=== PATIENT | male | born 1950 | race Caucasian/White ===

== ENCOUNTER 2016-12-10 13:07 | Inpatient (IN) | payer OTHER ==
[~2016-12-10] VITALS: Ht 177.8 cm; Wt 102.2 kg
[~2016-12-10 13:07] MED LIST: ALBINS/ INH; ALBUAER19 INH; ASPI81TA57 PO; FURO40TA3 PO; LEVO1TAB35 PO; LORA-741 PO; MOME100A INH; OMEP20CA9 PO; POTA20TA13 PO; SIMV20TA5 PO; VLT500 PO
[2016-12-10 15:24] VITALS: BP 155/72; PULSE 80; TEMP 36.5; O2SAT 93
[2016-12-10 15:43] VITALS: O2SAT 96
[2016-12-10] MEDS ORDERED: ALUMINUM/MAGNESIUM/SIMETH (MAALOX MAX) 30 ML UDC PO PRN (15:45)
[2016-12-10] MEDS ORDERED: MAGNESIUM HYDROXIDE SUSP 30 ML UDC PO PRN (15:45)
[2016-12-10] MEDS ORDERED: ONDANSETRON INJ 2 MG/ML 2 ML VIAL IV PRN (15:45)
[2016-12-10] MEDS ORDERED: POLYETHYLENE (MIRALAX) 17 GM PACK PO PRN (15:45)
[2016-12-10] MEDS ORDERED: ACETAMINOPHEN 325 MG TAB PO PRN (15:45)
[2016-12-10] MEDS ORDERED: ALBUTEROL HFA 8 GM INHALER INH PRN (15:45)
[2016-12-10] MEDS: ALBUT/IPRATROP 3MG/0.5MG NEB 3 ML VIAL INH SCH ×2 (16:00→19:58)
--- NOTE | 2016-12-10 16:11 | History and Physical ---
History & Physical Date & Time of Service: Dec 10, 2016 at 15:50 Chief Complaint: Probable Pneumonia; Exacerbation Of Sarcoidosis Primary Care Physician: Helio Bailey M.D. History of Present Illness Source: patient, family Patient is a pleasant 66 y/o male, with PMHx of sarcodosis, anxiety, GERD, hyperlipidemia, herpes zoster, bilateral lower extremity edema, and chronic t wave abnormality on EKG, direct admit from Petros Heath PA-C office due to failed outpatient treatment of acute bronchitis. Per patient, he has been dealing with this issue for over a month now. Treated x1 with a z-pac, then multiple treatments with Levaquin. His latest treatment included Levaquin and a Prednisone sidney, started on 12/03. He has had minimal improvement in his symptoms. +productive cough- yellow/green mucus. +hemoptysis x1 episode on 12/10 in Petros's office. +SOB- patient was started on 2L O2 about 1 week ago, he is to wear O2 supplement all the time. Per , patient becomes very anxious when feeling SOB. Patient is having trouble sleeping due to cough. Patient denies any fever, chills, sweats, lightheadedness, dizziness, vision changes, CP, palpitations, wheezing, abdominal pain, nausea, vomiting, diarrhea, urinary symptoms, melena, numbness/tingling, weakness, muscle/joint pain, depression, active bleeding, or new skin discoloration/changes. Past Medical/Surgical History Medical Problems: 1. Sarcoidosis 2. Anxiety 3. GERD 4. Hyperlipidemia 5. Herpes zoster 6. Bilateral lower extremity edema 7. Chronic t-wave abnormality on EKG Family History FH: cancer Hypertension Social History Smoking Status: Never Smoker Smokeless Tobacco Use: No Alcohol Use: none Marital Status: Housing status: lives with family Immunizations History of Influenza Vaccine: Yes Influenza Vaccine Date: Aug 03, 2013 History of Tetanus Vaccine?: Yes Tetanus Immunization Date: Nov 29, 2006 History of Pneumococcal: Yes Pneumococcal Date: Feb 01, 2009 History of Hepatitis B Vaccine: Yes Allergies Coded Allergies: Tetracycline (Verified Allergy, Unknown, *, 11/18/09) Home Medications Scheduled Aspirin (Aspirin Ec Lo-Dose), 81 MG PO DAILY Furosemide (Lasix), 40 MG PO DAILY Levofloxacin (Levaquin), 750 MG PO DAILY Mometasone Furoate-Formoterol (Dulera 100/5 Mcg), 2 PUFFS INH BID Omeprazole (Prilosec), 20 MG PO BID Potassium Chloride Microencaps (Potassium Chloride Er), 20 MEQ PO DAILY Simvastatin (Zocor), 20 MG PO QPM Valacyclovir Hcl (Valtrex), 1,000 MG PO TID Scheduled PRN Albuterol Inhaler (Ventolin Inhaler), 2 PUFFS INH BID PRN for PRN Albuterol Sulf (Proventil 0.083% 2.5MG/3ML), 2.5 MG INH QID PRN for SOB/Wheezing Lorazepam (Ativan), 0.5 MG PO Q6H PRN for Anxiety Physical Exam Vital Signs Date Time Temp Pulse Resp B/P Pulse Ox O2 Delivery O2 Flow Rate FiO2 12/10/16 15:24 36.5 80 20 155/72 93 Room Air General Appearance: no apparent distress Head: normocephalic, atraumatic Eyes: normal inspection, PERRL ENT: hearing grossly normal Neck: supple Respiratory/Chest: no respiratory distress, no accessory muscle use, + rhonchi , + wheezing Cardiovascular: regular rate, rhythm Abdomen/GI: normal bowel sounds, non tender, soft Back: normal inspection Extremities/Musculoskelatal: no calf tenderness, no pedal edema, + swelling ( Trace pitting edema of right lower extremity ) Neurologic/Psych: alert, normal mood/affect, oriented x 3 Skin: normal color, warm/dry, + pertinent finding (shingles noted on left buttock- scabbed over, no drainage noted ) Impression Assessment and Plan 66 y/o male, with PMHx of sarcodosis, anxiety, GERD, hyperlipidemia, herpes zoster, bilateral lower extremity edema, and chronic t wave abnormality on EKG, direct admit from Petros Heath PA-C office due to failed outpatient treatment of acute bronchitis. Failed outpt treatment of acute bronchitis: - Admit med/surg - Chest x-ray - Sputum culture--> hold on antibiotic treatment at this time pending results - IV Solu-Medrol 80 mg q8 hr - O2 supplement--> wears 2L O2 all the time at home - DuoNeb QID and q2 hrs PRN - CBC and BMP - Consult pulmonary, appreciate recommendations--> ?bronchoscopy Sarcoidosis: - Continue inhalers - Patient follows with Petros Heath PA-C Bilateral lower extremity edema: Continue Lasix 40 mg PO daily and Klor-Con 20 mEq daily Anxiety: Continue Ativan 0.5 mg PO, 1-2 tablets q6 hr GERD: Protonix 40 mg PO QAM, inter-formulary change for Omeprazole Hyperlipidemia: Continue Simvastatin 20 mg PO QPM and ASA 81 mg PO daily Shingles (right buttock): Continue Valtrex 1000 mg PO TID (started treatment on 12/03) DVT prophylaxis: Heparin 5000 units SQ q12 hrs, SARAH and SCDs Code Status: LEVEL I, FULL Dispo: From home, lives with [facility] Med/Surg Resuscitation Status FULL RESUSCITATION VTE Prophylaxis VTE Risk Assessment Done? Y/N: Yes Risk Level: Low Given or contraindicated: Unfractionated heparin SQ, T.E.D. Stockings, SCD's
[2016-12-10] MEDS ORDERED: FUROSEMIDE 40 MG TAB PO ONE (16:30)
--- NOTE | 2016-12-10 16:47 | DIAGNOSTIC IMAGING REPORT ---
CHEST ONE VIEW PORTABLE CLINICAL HISTORY: Pneumonia. Sarcoidosis. COMPARISON STUDY: Chest CT July 02, 2011 and chest radiograph November 29, 2013. FINDINGS: Right hemithorax volume loss is unchanged. There is no pneumothorax or pleural effusion. There is no evidence for pulmonary edema. Mediastinal widening is unchanged. Cardiomediastinal silhouette is stable. IMPRESSION: 1. No acute findings. No change in appearance of the chest. 2. Stable right hemithorax volume loss with asymmetric right upper lung interstitial thickening. The findings represent interstitial lung disease and may reflect sarcoidosis, better depicted on prior chest CT. Electronically signed by: Shakeel Keen M.D. 12/10/2016 4:46 PM Dictated Date/Time: 12/10/2016 4:43 PM
[2016-12-10 17:34] LABS: HEMATOCRIT 39.9 % (42-52); MEAN CELL VOLUME 87.7 fL (80-100); MEAN CORPUSCULAR HEMOGLOBIN 29.5 pg (25-34); MEAN CORPUSCULAR HGB CONC 33.6 g/dl (32-36); MEAN PLATELET VOLUME 9.3 fL (7.4-10.4); PLATELET COUNT 114 K/uL (130-400); RED BLOOD COUNT 4.55 M/uL (4.7-6.1); WHITE BLOOD COUNT 7.51 K/uL (4.8-10.8)
[2016-12-10 17:42] VITALS: PULSE 88; O2SAT 95
[2016-12-10] MEDS: LORAZEPAM 0.5 MG TAB PO PRN (18:19)
[2016-12-10 18:39] LABS: INR 0.9 (0.9-1.1)
[2016-12-10] MEDS: METHYLPREDNISOLONE IV 80 MG in SYRINGE 0 ML IV SCH (18:39)
[2016-12-10 19:15] VITALS: PULSE 71; O2SAT 97
[2016-12-10] MEDS: ASPIRIN 81 MG ECTAB PO SCH (20:29)
[2016-12-10] MEDS: SIMVASTATIN 20 MG TAB PO SCH (20:29)
[2016-12-10] MEDS: HEPARIN SOD 5000 UNIT/0.5 ML CARP SQ SCH (20:43)
[2016-12-10 23:57] VITALS: BP 153/84; PULSE 83; TEMP 36.7; O2SAT 96
[2016-12-11] MEDS: LORAZEPAM 0.5 MG TAB PO PRN (01:53)
[2016-12-11] MEDS: METHYLPREDNISOLONE IV 80 MG in SYRINGE 0 ML IV SCH ×3 (01:54→18:09)
[2016-12-11] MEDS ORDERED: BENZONATATE 100MG CAP PO STA (02:41)
[2016-12-11] MEDS ORDERED: BENZONATATE 100MG CAP PO PRN (02:45)
[2016-12-11] MEDS: DEXTROMETHORPHAN POLYMR COMPLX 30 MG/5 ML UDP PO PRN ×2 (03:09→14:05)
[2016-12-11 07:09] VITALS: PULSE 68; O2SAT 98
[2016-12-11] MEDS: ALBUT/IPRATROP 3MG/0.5MG NEB 3 ML VIAL INH SCH ×4 (07:09→19:50)
[2016-12-11 07:29] LABS: HEMATOCRIT 40.7 % (42-52); MEAN CORPUSCULAR HEMOGLOBIN 28.8 pg (25-34); MEAN CORPUSCULAR HGB CONC 33.9 g/dl (32-36); MEAN PLATELET VOLUME 8.5 fL (7.4-10.4); PLATELET COUNT 109 K/uL (130-400); RED BLOOD COUNT 4.79 M/uL (4.7-6.1); WHITE BLOOD COUNT 7.94 K/uL (4.8-10.8)
[2016-12-11] MEDS: PANTOprazole SOD 40 MG TAB PO SCH (07:46)
[2016-12-11] MEDS: POTASSIUM CHLORIDE 20 MEQ TABCR PO SCH (07:46)
[2016-12-11] MEDS: FUROSEMIDE 40 MG TAB PO SCH (07:46)
[2016-12-11 07:49] VITALS: BP_SYST 159; BP_SYST 168; BP_DIAS 80; BP_DIAS 91; PULSE 69; TEMP 36.9; O2SAT 95
[2016-12-11] MEDS: HEPARIN SOD 5000 UNIT/0.5 ML CARP SQ SCH ×2 (07:51→20:17)
[2016-12-11 08:08] LABS: BLOOD UREA NITROGEN 22 mg/dl (7-18); GLUCOSE 118 mg/dl (70-99)
[2016-12-11 08:09] LABS: BUN/CREATININE RATIO 22.2 (10-20); CALCIUM 8.6 mg/dl (8.5-10.1); CARBON DIOXIDE 30 mmol/L (21-32); CHLORIDE 99 mmol/L (98-107); POTASSIUM 4.3 mmol/L (3.5-5.1); SODIUM 138 mmol/L (136-145)
[2016-12-11 11:40] VITALS: PULSE 68; O2SAT 98
--- NOTE | 2016-12-11 14:13 | Hospitalist Progress Note ---
Hospitalist Progress Note Date of Service Dec 11, 2016. (Bharti Baldwin ., [facility]) Subjective Pt evaluation today including: conversation w/ patient Voiding: no voiding problems, no incontinence Patient does not feel much improvement since admission. +cough- nonproductive. + SOB. +Insomnia due to cough and steroids. Patient denies any fever, chills, sweats, lightheadedness, dizziness, vision changes, CP, palpitations, edema, wheezing, abdominal pain, nausea, vomiting, diarrhea, urinary symptoms, melena, numbness/tingling, weakness, muscle/joint pain, anxiety/depression, active bleeding, or new skin discoloration/changes. (Bharti Baldwin ., [facility]) Medications Current Inpatient Medications Medications (Trade) Dose Ordered Sig/Nahum Route Start Time Stop Time Status Last Admin Dose Admin Acetaminophen (Tylenol Tab) 650 mg Q4H PRN PO 12/10/16 15:45 01/09/17 15:44 Al Hydrox/Mg Hydrox/Simethicone (Maalox Max Susp) 15 ml Q4H PRN PO 12/10/16 15:45 01/09/17 15:44 Magnesium Hydroxide (Milk Of Magnesia Susp) 30 ml Q6H PRN PO 12/10/16 15:45 01/09/17 15:44 Polyethylene (Miralax Powder Packet) 17 gm DAILY PRN PO 12/10/16 15:45 01/09/17 15:44 Ondansetron HCl (Zofran Inj) 4 mg Q6H PRN IV 12/10/16 15:45 01/09/17 15:44 Heparin Sodium (Porcine) (Heparin Sq 5000 Unit/0.5ml) 5,000 unit Q12 SQ 12/10/16 21:00 01/09/17 20:59 12/11/16 07:51 5,000 UNIT Albuterol (Ventolin Hfa Inhaler) 2 puffs BID PRN INH 12/10/16 15:45 01/09/17 15:44 Aspirin (Ecotrin Tab) 81 mg HS PO 12/10/16 21:00 01/09/17 20:59 12/10/16 20:29 81 MG Furosemide (Lasix Tab) 40 mg DAILY PO 12/11/16 09:00 01/10/17 08:59 12/11/16 07:46 40 MG Lorazepam (Ativan Tab) 0.5 mg Q6H PRN PO 12/10/16 15:45 01/09/17 15:44 12/11/16 01:53 0.5 MG Potassium Chloride (Klor-Con Tab) 20 meq DAILY PO 12/11/16 09:00 01/10/17 08:59 12/11/16 07:46 20 MEQ Simvastatin (Zocor Tab) 20 mg QPM PO 12/10/16 21:00 01/09/17 20:59 12/10/16 20:29 20 MG Valacyclovir HCl (Valtrex Tab) 1,000 mg TID PO 12/10/16 21:00 12/20/16 20:59 12/11/16 14:05 1,000 MG Miscellaneous Information (Order Awaiting Action) 1 ea QS N/A 12/11/16 00:00 01/10/17 00:00 Albuterol/ Ipratropium (Duoneb) 3 ml QIDR INH 12/10/16 16:00 01/09/17 15:59 12/11/16 15:52 3 ML Pantoprazole Sodium 40 mg 40 mg QAM PO 12/11/16 09:00 01/10/17 08:59 12/11/16 07:46 40 MG Methylprednisolone Sodium Succinate/ Syringe (Solu-Medrol IV/ Syringe) 1.28 ml @ 1.5 mls/min Q8H IV 12/10/16 16:00 01/09/17 15:59 12/11/16 09:32 1.5 MLS/MIN Benzonatate (Tessalon Perles Cap) 100 mg TID PRN PO 12/11/16 02:45 01/10/17 02:44 Dextromethorphan Polymer Complex (Delsym Susp) 30 mg Q6H PRN PO 12/11/16 02:45 01/10/17 02:44 12/11/16 14:05 30 MG (Bharti Baldwin, SHAMIKA) Objective Vital Signs Date Time Temp Pulse Resp B/P Pulse Ox O2 Delivery O2 Flow Rate FiO2 12/11/16 11:40 68 12 98 Nasal Cannula 3.0 12/11/16 08:00 Nasal Cannula 2.0 12/11/16 07:49 36.9 69 20 159/91 95 Nasal Cannula 3.0 168/80 12/11/16 07:09 68 14 98 Nasal Cannula 3.0 12/11/16 00:10 Nasal Cannula 2.0 12/10/16 23:57 36.7 83 18 153/84 96 Nasal Cannula 3.0 12/10/16 20:10 Nasal Cannula 2.0 12/10/16 19:15 71 20 97 Nasal Cannula 3.0 12/10/16 17:42 88 20 95 Nasal Cannula 3.0 12/10/16 15:43 96 Nasal Cannula 2.0 12/10/16 15:24 36.5 80 20 155/72 93 Room Air (Bharti Baldwin, PA-C) Physical Exam General Appearance: no apparent distress Eyes: normal inspection, PERRL ENT: hearing grossly normal Neck: supple Respiratory/Chest: no respiratory distress, no accessory muscle use, + crackles (bilateral lung bases ), + rhonchi (diffuse), + wheezing (diffuse, expiratory ) Cardiovascular: regular rate, rhythm Abdomen: normal bowel sounds, non tender, soft Extremities: no calf tenderness, + swelling (+1 pitting edema of bilteral extremities ) Neurologic/Psychiatric: alert, normal mood/affect, oriented x 3 Skin: normal color, warm/dry, no rash (Bharti Baldwin ., PA-C) Laboratory Results Last 24 Hours Test 12/10/16 17:15 12/11/16 07:10 12/11/16 07:20 White Blood Count 7.51 K/uL 7.94 K/uL Red Blood Count 4.55 M/uL 4.79 M/uL Hemoglobin 13.4 g/dL 13.8 g/dL Hematocrit 39.9 % 40.7 % Mean Corpuscular Volume 87.7 fL 85.0 fL Mean Corpuscular Hemoglobin 29.5 pg 28.8 pg Mean Corpuscular Hemoglobin Concent 33.6 g/dl 33.9 g/dl RDW Standard Deviation 46.4 fL 44.4 fL RDW Coefficient of Variation 14.6 % 14.3 % Platelet Count 114 K/uL 109 K/uL Mean Platelet Volume 9.3 fL 8.5 fL Prothrombin Time 10.0 SECONDS Prothromb Time International Ratio 0.9 Thyroid Stimulating Hormone (TSH) 0.836 uIu/ml Sodium Level 138 mmol/L Potassium Level 4.3 mmol/L Chloride Level 99 mmol/L Carbon Dioxide Level 30 mmol/L Anion Gap 9.0 mmol/L Blood Urea Nitrogen 22 mg/dl Creatinine 1.00 mg/dl Estimated GFR () 89.9 Estimated GFR (Non- 77.5 BUN/Creatinine Ratio 22.2 Random Glucose 118 mg/dl Calcium Level 8.6 mg/dl Pro-B-Type Natriuretic Peptide 178 pg/ml Bedside Glucose 116 mg/dl (Bharti Baldwin PA-C) Assessment and Plan 66 y/o male, with PMHx of sarcoidosis, anxiety, GERD, hyperlipidemia, herpes zoster, bilateral lower extremity edema, and chronic t-wave abnormality on EKG, direct admit from [facility] Heath PA-C office due to failed outpatient treatment of acute bronchitis. Failed outpt treatment of acute bronchitis: - Admit med/surg - Sputum culture--> hold on antibiotic treatment at this time pending results - IV Solu-Medrol 80 mg q8 hr - O2 supplement--> wears 2L O2 all the time at home - DuoNeb QID and q2 hrs PRN - Delsym for cough - CBC and BMP - Consult pulmonary, appreciate recommendations--> bronchoscopy (per patient, possibly on 12/12) Sarcoidosis: - Continue inhalers - Patient follows with Petros Heath PA-C Bilateral lower extremity edema: - Continue Lasix 40 mg PO daily and Klor-Con 20 mEq daily - ECHO pending Anxiety: Continue Ativan 0.5 mg PO, 1-2 tablets q6 hr GERD: Protonix 40 mg PO QAM, inter-formulary change for Omeprazole Hyperlipidemia: Continue Simvastatin 20 mg PO QPM and ASA 81 mg PO daily Shingles (right buttock): Continue Valtrex 1000 mg PO TID (started treatment on 12/03) DVT prophylaxis: Heparin 5000 units SQ q12 hrs, SARAH and SCDs Code Status: LEVEL I, FULL Dispo: From home, lives with (Bharti Baldwin PA-C) Reviewed: Pt Seen/Exam by , BALJEET Notes, Labs, RAD (Christy Castellon MD) 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 Discussed with LINDA Baldwin and agree with findings and plan as documented in the note. Any exceptions or clarifications are listed here: Pt still with SOB, dry cough, not much sputum. Hospitalized 2 weeks ago at outside hospital and treated with steroids and IV Levaquin with some improvement , now worsening again. Sarcoidosis treated with chronic prednisone (and previously on MTX) for 20 years. Vitals reviewed NAD, AAOx3 RRR no mgr Pulm with diffuse rhonchi and insp/exp wheezes Abd soft NT ND +BS Ext 1+ pitting edema legs to knees bilat Skin no rashes 66 yo male with pulmonary sarcoidosis on chronic prednisone and h/o ?wedge resection vs lung biopsies, here with exacerbation of sarcoidosis, bronchitis, or atypical infection. -continue steroids appreciate Pulm consult -possible bronch tomorrow -supplemental O2 -check flu swab follow sputum cxs -check ECHO-last one 2013 with diastolic dysfunction Documented By: Christy Castellon (Christy Castellon MD)
[2016-12-11 15:01] VITALS: BP 124/73; PULSE 72; TEMP 36.5; O2SAT 96
[2016-12-11 15:52] VITALS: PULSE 75; O2SAT 97
[2016-12-11 19:50] VITALS: PULSE 77; O2SAT 97
[2016-12-11] MEDS: ACETYLCYSTEINE 20% INHAL SOLN ***DISPENSED BY RESP. INH SCH (19:50)
[2016-12-11] MEDS: SIMVASTATIN 20 MG TAB PO SCH (20:14)
[2016-12-11] MEDS: ASPIRIN 81 MG ECTAB PO SCH (20:14)
[2016-12-11] MEDS ORDERED: LORAZEPAM 1 MG TAB PO PRN (21:45)
[2016-12-12] VITALS (7 sets, daily range): BP systolic 118–146; BP diastolic 66–80; PULSE 70–102; TEMP 36.3–36.6; O2SAT 90–97
[2016-12-12] MEDS: METHYLPREDNISOLONE IV 80 MG in SYRINGE 0 ML IV SCH ×2 (03:50→10:20)
[2016-12-12] MEDS: ALBUT/IPRATROP 3MG/0.5MG NEB 3 ML VIAL INH SCH ×4 (07:54→20:11)
[2016-12-12] MEDS: ACETYLCYSTEINE 20% INHAL SOLN ***DISPENSED BY RESP. INH SCH ×2 (07:54→20:11)
[2016-12-12 08:37] LABS: INFLUENZA A PCR Neg for Influ A (NEG); INFLUENZA B PCR Neg for Influ B (NEG)
[2016-12-12] MEDS: PANTOprazole SOD 40 MG TAB PO SCH (10:20)
[2016-12-12] MEDS: FUROSEMIDE 40 MG TAB PO SCH (10:20)
[2016-12-12] MEDS: POTASSIUM CHLORIDE 20 MEQ TABCR PO SCH (10:21)
[2016-12-12] MEDS: HEPARIN SOD 5000 UNIT/0.5 ML CARP SQ SCH ×2 (10:24→21:22)
[2016-12-12 12:08] LABS: MEAN CELL VOLUME 85.9 fL (80-100); MEAN CORPUSCULAR HEMOGLOBIN 28.8 pg (25-34); MEAN CORPUSCULAR HGB CONC 33.6 g/dl (32-36); MEAN PLATELET VOLUME 9.1 fL (7.4-10.4); PLATELET COUNT 131 K/uL (130-400); RED BLOOD COUNT 4.89 M/uL (4.7-6.1); WHITE BLOOD COUNT 10.34 K/uL (4.8-10.8)
[2016-12-12 13:01] LABS: BLOOD UREA NITROGEN 29 mg/dl (7-18); BUN/CREATININE RATIO 24.2 (10-20); CALCIUM 8.9 mg/dl (8.5-10.1); CARBON DIOXIDE 27 mmol/L (21-32); CHLORIDE 100 mmol/L (98-107); GLUCOSE 182 mg/dl (70-99); POTASSIUM 4.1 mmol/L (3.5-5.1); SODIUM 139 mmol/L (136-145)
--- NOTE | 2016-12-12 13:17 | Hospitalist Progress Note ---
Hospitalist Progress Note Date of Service Dec 12, 2016. (Bharti Baldwin ., PAEmreC) Subjective Pt evaluation today including: conversation w/ patient, physical exam, chart review, lab review, review of inpatient medication list Voiding: no voiding problems, no incontinence Patient states he is feeling improved today. +productive cough, but improving. + SOB- improving. Slept well. Eating and drinking OK. Patient denies any fever, chills, sweats, lightheadedness, dizziness, vision changes, CP, palpitations, edema, wheezing, abdominal pain, nausea, vomiting, diarrhea, urinary symptoms, melena, numbness/tingling, weakness, muscle/joint pain, anxiety/depression, active bleeding, or new skin discoloration/changes. (Bharti Baldwin ., [facility]) Medications Current Inpatient Medications Medications (Trade) Dose Ordered Sig/Nahum Route Start Time Stop Time Status Last Admin Dose Admin Acetaminophen (Tylenol Tab) 650 mg Q4H PRN PO 12/10/16 15:45 01/09/17 15:44 Al Hydrox/Mg Hydrox/Simethicone (Maalox Max Susp) 15 ml Q4H PRN PO 12/10/16 15:45 01/09/17 15:44 Magnesium Hydroxide (Milk Of Magnesia Susp) 30 ml Q6H PRN PO 12/10/16 15:45 01/09/17 15:44 Polyethylene (Miralax Powder Packet) 17 gm DAILY PRN PO 12/10/16 15:45 01/09/17 15:44 Ondansetron HCl (Zofran Inj) 4 mg Q6H PRN IV 12/10/16 15:45 01/09/17 15:44 Heparin Sodium (Porcine) (Heparin Sq 5000 Unit/0.5ml) 5,000 unit Q12 SQ 12/10/16 21:00 01/09/17 20:59 Future hold 12/12/16 10:24 5,000 UNIT Albuterol (Ventolin Hfa Inhaler) 2 puffs BID PRN INH 12/10/16 15:45 01/09/17 15:44 Aspirin (Ecotrin Tab) 81 mg HS PO 12/10/16 21:00 01/09/17 20:59 12/11/16 20:14 81 MG Furosemide (Lasix Tab) 40 mg DAILY PO 12/11/16 09:00 01/10/17 08:59 12/12/16 10:20 40 MG Potassium Chloride (Klor-Con Tab) 20 meq DAILY PO 12/11/16 09:00 01/10/17 08:59 12/12/16 10:21 20 MEQ Simvastatin (Zocor Tab) 20 mg QPM PO 12/10/16 21:00 01/09/17 20:59 12/11/16 20:14 20 MG Valacyclovir HCl (Valtrex Tab) 1,000 mg TID PO 12/10/16 21:00 12/20/16 20:59 12/12/16 10:20 1,000 MG Miscellaneous Information (Order Awaiting Action) 1 ea QS N/A 12/11/16 00:00 01/10/17 00:00 Pantoprazole Sodium (Protonix Tab) 40 mg QAM PO 12/11/16 09:00 01/10/17 08:59 12/12/16 10:20 40 MG Benzonatate (Tessalon Perles Cap) 100 mg TID PRN PO 12/11/16 02:45 01/10/17 02:44 12/11/16 20:15 100 MG Dextromethorphan Polymer Complex (Delsym Susp) 30 mg Q6H PRN PO 12/11/16 02:45 01/10/17 02:44 12/11/16 14:05 30 MG Albuterol/ Ipratropium (Duoneb) 3 ml Q4RWA INH 12/11/16 20:00 01/10/17 19:59 12/12/16 11:01 3 ML Acetylcysteine (Mucomyst 20% Inh Soln) 3 ml BIDR INH 12/11/16 20:00 01/10/17 19:59 12/12/16 07:54 3 ML Lorazepam 1 mg 1 mg Q6H PRN PO 12/11/16 21:45 01/10/17 21:44 Methylprednisolone Sodium Succinate/ Syringe (Solu-Medrol IV/ Syringe) 0.96 ml @ 1.5 mls/min Q8H IV 12/12/16 18:00 01/11/17 17:59 (Bharti Baldwin, BETHC) Objective Vital Signs Date Time Temp Pulse Resp B/P Pulse Ox O2 Delivery O2 Flow Rate FiO2 12/12/16 11:01 70 16 97 Nasal Cannula 3.0 12/12/16 08:00 Nasal Cannula 2.0 12/12/16 07:10 87 16 94 Nasal Cannula 3.0 12/12/16 07:06 36.5 102 20 146/80 93 Nasal Cannula 3.0 12/11/16 20:09 Nasal Cannula 2.0 12/11/16 19:50 77 16 97 Nasal Cannula 2.0 12/11/16 16:00 Nasal Cannula 2.0 12/11/16 15:52 75 16 97 Nasal Cannula 3.0 12/11/16 15:01 36.5 72 20 124/73 96 Nasal Cannula 3.0 (Bharti Baldwin, PA-C) Physical Exam General Appearance: no apparent distress Eyes: normal inspection, PERRL ENT: hearing grossly normal Neck: supple Respiratory/Chest: no respiratory distress, no accessory muscle use, + crackles (bilateral lung bases ), + rhonchi (throughout lung cunningham, > in upper lobes ) , + pertinent finding (+improvement with air movement throughout all lung cunningham ) Cardiovascular: regular rate, rhythm Abdomen: normal bowel sounds, non tender, soft Extremities: no pedal edema, no calf tenderness, + swelling (trace pitting edema of bilateral lower extremites, mid-suarez area ) Neurologic/Psychiatric: alert, normal mood/affect, oriented x 3 Skin: normal color, warm/dry, no rash (Bharti Baldwin ., PA-C) Laboratory Results Last 24 Hours Test 12/12/16 06:40 12/12/16 07:18 12/12/16 08:17 12/12/16 12:20 Influenza Type A (RT-PCR) Neg for Influ A Influenza Type B (RT-PCR) Neg for Influ B Bedside Glucose 106 mg/dl White Blood Count 10.34 K/uL Red Blood Count 4.89 M/uL Hemoglobin 14.1 g/dL Hematocrit 42.0 % Mean Corpuscular Volume 85.9 fL Mean Corpuscular Hemoglobin 28.8 pg Mean Corpuscular Hemoglobin Concent 33.6 g/dl RDW Standard Deviation 44.6 fL RDW Coefficient of Variation 14.3 % Platelet Count 131 K/uL Mean Platelet Volume 9.1 fL Sodium Level 139 mmol/L Potassium Level 4.1 mmol/L Chloride Level 100 mmol/L Carbon Dioxide Level 27 mmol/L Anion Gap 12.0 mmol/L Blood Urea Nitrogen 29 mg/dl Creatinine 1.20 mg/dl Estimated GFR () 72.1 Estimated GFR (Non- 62.2 BUN/Creatinine Ratio 24.2 Random Glucose 182 mg/dl Calcium Level 8.9 mg/dl (Bharti Baldwin PA-C) Assessment and Plan 66 y/o male, with PMHx of sarcoidosis, anxiety, GERD, hyperlipidemia, herpes zoster, bilateral lower extremity edema, and chronic t-wave abnormality on EKG, direct admit from Petros Heath PA-C office due to failed outpatient treatment of acute bronchitis. Failed outpt treatment of acute bronchitis: - Admit med/surg - Sputum culture--> rare Aspergillus species - IV Solu-Medrol 80 mg q8 hr--> wean - O2 supplement--> wears 2L O2 all the time at home - DuoNeb QID and q2 hrs PRN - Delsym for cough - CBC and BMP - Consult pulmonary, appreciate recommendations--> bronchoscopy scheduled for 12/13 - Influenza negative Sarcoidosis: - Continue inhalers - Patient follows with Petros Heath PA-C Bilateral lower extremity edema: - Continue Lasix 40 mg PO daily and Klor-Con 20 mEq daily - ECHO pending Anxiety: Continue Ativan 1 mg PO, 1-2 tablets q6 hr GERD: Protonix 40 mg PO QAM, inter-formulary change for Omeprazole Hyperlipidemia: Continue Simvastatin 20 mg PO QPM and ASA 81 mg PO daily Shingles (right buttock): Continue Valtrex 1000 mg PO TID (started treatment on 12/03) DVT prophylaxis: Heparin 5000 units SQ q12 hrs, SARAH and SCDs Code Status: LEVEL I, FULL Dispo: Per patient, bronchoscopy on 12/13 with possible discharge to home per pulmonary (Bharti Baldwin PA-C) Reviewed: Pt Seen/Exam by Me, BALJEET Notes, Labs (Christy Castellon MD) History Physician Electronic Drafter Supervision Note: I interviewed and examined the patient. Discussed with LINDA Baldwin and agree with findings and plan as documented in the note. Any exceptions or clarifications are listed here: Pt is feeling better today, was able to bring up sputum after starting Mucomyst. Growing Aspergillus in sputum. Vitals reviewed NAD, AAOx3 RRR no mgr Pulm with diffuse rhonchi and insp/exp wheezes slightly improved Abd soft NT ND +BS Ext 1+ pitting edema legs to knees bilat Skin no rashes 66 yo male with pulmonary sarcoidosis on chronic prednisone and h/o ?wedge resection vs lung biopsies, here with Aspergillus pneumonitis. FLu swab neg. -continue steroids -start Voriconazole 200mg po bid appreciate Pulm consult - bronch tomorrow -supplemental O2 -may be able to dc to home after bronch tomorrow on voriconazole ECHO-Hyperdynamic left ventricular systolic function. * Left ventricular diastolic dysfunction. * Mild concentric left ventricular hypertrophy. * Trace mitral and tricuspid regurgitation. * Normal right heart and central venous pressures. * Aortic valve sclerosis mild, without significant aortic valvular stenosis Documented By: Christy Castellon (Christy Castellon MD)
[2016-12-12] MEDS ORDERED: PERFLUTREN LIPID MICROSPHERE (DEFINITY) IV ONE (15:06)
--- NOTE | 2016-12-12 17:00 | ECHOCARDIOGRAM REPORT ---
*NOTICE TO RECEIVING DEMOCRAT AGENCY This information is strictly Confidential and protected under [place] law. [place] law prohibits you from making any further disclosure of this information unless further disclosure is expressly permitted by the written consent of the person to whom it pertains or is authorized by law. A general authorization for the release of medical or other information is not sufficient for this purpose. Hospital accepts no responsibility if the information is made available to any other person, INCLUDING THE PATIENT. Interpretation Summary * Name: PRIYA RODRIGUEZ Study Date: 12/12/2016 02:25 PM BP: 146/80 mmHg * Patient Location: .[id number]\W252\S\1 HR: 70 * : 1950 (M/d/yyyy) Gender: Male Height: 70 in * Age: 66 yrs Ethnicity: [place] Weight: 227 lb * Ordering Physician: Bharti Baldwin * Performed By: Dinah Carlos * * Reason For Study: SOB, MARTELL LOWER EXT EDEMA * BSA: 2.2 m2 * Hyperdynamic left ventricular systolic function. * Left ventricular diastolic dysfunction. * Mild concentric left ventricular hypertrophy. * Trace mitral and tricuspid regurgitation. * Normal right heart and central venous pressures. * -- Conclusions -- * Aortic valve sclerosis mild, without significant aortic valvular stenosis. Procedure Details * A complete two-dimensional transthoracic echocardiogram was performed (2D, M-mode, Doppler and color flow Doppler). * The study was technically difficult. * There were technical limitations due to patient'sPoor acoustic windows secondary to severe lung disease. * A contrast injection of Definity was performed to improve assessment of LV function. * Contrast was injected into an intravenous site in the left arm. * One vial of Definity ultrasound contrast was diluted in normal saline to a total volume of 10 ml. A total of '3.5' ml of solution was administered during imaging. * Lot # [id number] of Definity utilized for procedure. * Expiration date 10/31. * The attending nurse who injected the contrast agent was SUKUMAR JARQUIN RN. Left Ventricle * The left ventricle is normal in size. * There is mild concentric left ventricular hypertrophy. * Ejection Fraction = >70 %. * A full diastolic examination was done with clinical findings of Class I diastolic dysfunction. * The left ventricle is hyperdynamic. * No regional wall motion abnormalities noted. Right Ventricle * The right ventricle is normal in size and function. Atria * The left atrial size is normal. * Right atrial size is normal. * No ASD detected; PFO is not assessed. Mitral Valve * The mitral valve is grossly normal. * There is no mitral valve stenosis. * There is trace mitral regurgitation. Tricuspid Valve * The tricuspid valve is not well visualized. * Right ventricular systolic pressure is normal. * There is trace tricuspid regurgitation. Aortic Valve * The aortic valve is trileaflet. * The aortic valve opens well. * Aortic valve sclerosis mild, without significant aortic valvular stenosis. * Aortic stenosis is absent. * No aortic regurgitation is present. Pulmonic Valve * The pulmonic valve is not well visualized. * Pulmonic stenosis is absent. * There is no significant pulmonary regurgitation. Great Vessels * The aortic root is normal size. Pericardium/Pleural * There is no pericardial effusion. Great Vessels * Normal inferior vena cava diameter and respiratory variation suggests normal central venous pressure. MMode 2D Measurements and Calculations IVSd 1.3 cm IVSs 2.0 cm LVIDd 4.6 cm LVIDs 2.8 cm LVPWd 1.2 cm LVPWs 2.1 cm IVS/LVPW 1.1 FS 39.1 % EDV(Teich) 99.6 ml ESV(Teich) 30.3 ml EF(Teich) 69.6 % EDV(cubed) 100.2 ml ESV(cubed) 22.6 ml EF(cubed) 77.5 % % IVS thick 55.4 % % LVPW thick 82.6 % LV mass(C)d 208.9 grams LV mass(C)dI 94.8 grams/m\S\2 LV mass(C)s 252.6 grams LV mass(C)sI 114.7 grams/m\S\2 CO(Teich) 5.5 l/min CI(Teich) 2.5 l/min/m\S\2 SV(Teich) 69.3 ml SI(Teich) 31.5 ml/m\S\2 CO(cubed) 6.1 l/min CI(cubed) 2.8 l/min/m\S\2 SV(cubed) 77.6 ml SI(cubed) 35.2 ml/m\S\2 Ao root diam 3.6 cm Ao root area 10.1 cm\S\2 ACS 1.6 cm LA dimension 3.6 cm asc Aorta Diam 2.6 cm LA/Ao 1.0 LVOT diam 2.0 cm LVOT area 3.1 cm\S\2 LVAd ap4 31.1 cm\S\2 LVLd ap4 8.8 cm EDV(MOD-sp4) 90.0 ml LVAs ap4 15.3 cm\S\2 LVLs ap4 6.9 cm ESV(MOD-sp4) 27.0 ml EF(MOD-sp4) 70.0 % LVAd ap2 31.9 cm\S\2 LVLd ap2 8.4 cm EDV(MOD-sp2) 100.0 ml LVAs ap2 16.3 cm\S\2 LVLs ap2 7.1 cm ESV(MOD-sp2) 30.0 ml EF(MOD-sp2) 70.0 % CO(MOD-sp4) 5.0 l/min CI(MOD-sp4) 2.3 l/min/m\S\2 SV(MOD-sp4) 63.0 ml SI(MOD-sp4) 28.6 ml/m\S\2 CO(MOD-sp2) 5.5 l/min CI(MOD-sp2) 2.5 l/min/m\S\2 SV(MOD-sp2) 70.0 ml SI(MOD-sp2) 31.8 ml/m\S\2 Doppler Measurements and Calculations MV E max radha 64.5 cm/sec MV A max radha 73.4 cm/sec MV E/A 0.88 MV dec time 0.21 sec Ao V2 max 141.8 cm/sec Ao max PG 8.0 mmHg Ao max PG (full) 0.35 mmHg BLAIR(V,A) 3.1 cm\S\2 BLAIR(V,D) 3.1 cm\S\2 LV V1 max PG 7.7 mmHg LV V1 mean PG 3.9 mmHg LV V1 max 138.7 cm/sec LV V1 mean 91.8 cm/sec LV V1 VTI 27.5 cm SV(LVOT) 85.8 ml SI(LVOT) 39.0 ml/m\S\2 PA V2 max 94.3 cm/sec PA max PG 3.6 mmHg PI end-d radha 142.5 cm/sec TR max radha 193.4 cm/sec
[2016-12-12] MEDS: METHYLPREDNISOLONE IV 60 MG in SYRINGE 0 ML IV SCH (17:46)
[2016-12-12] MEDS ORDERED: VORICONAZOLE 200 MG TAB PO ONE (18:30)
[2016-12-12] MEDS: ASPIRIN 81 MG ECTAB PO SCH (21:22)
[2016-12-12] MEDS: SIMVASTATIN 20 MG TAB PO SCH (21:23)
[2016-12-13] VITALS (24 sets, daily range): BP systolic 113–171; BP diastolic 65–86; PULSE 79–100; TEMP 36.1–36.6; O2SAT 93–100
[2016-12-13] MEDS: METHYLPREDNISOLONE IV 60 MG in SYRINGE 0 ML IV SCH ×3 (01:35→18:12)
[2016-12-13] MEDS ORDERED: SODIUM CHLORIDE 0.9% 1000ML 1,000 ML IV SCH (06:00)
[2016-12-13] MEDS: ALBUT/IPRATROP 3MG/0.5MG NEB 3 ML VIAL INH SCH ×4 (07:05→20:00)
[2016-12-13] MEDS: ACETYLCYSTEINE 20% INHAL SOLN ***DISPENSED BY RESP. INH SCH ×2 (07:05→20:00)
[2016-12-13 07:29] LABS: HEMATOCRIT 39.2 % (42-52); MEAN CELL VOLUME 85.4 fL (80-100); MEAN CORPUSCULAR HGB CONC 33.9 g/dl (32-36); PLATELET COUNT 112 K/uL (130-400); RED BLOOD COUNT 4.59 M/uL (4.7-6.1); WHITE BLOOD COUNT 9.01 K/uL (4.8-10.8)
[2016-12-13 08:07] LABS: BLOOD UREA NITROGEN 29 mg/dl (7-18); BUN/CREATININE RATIO 30.7 (10-20); CALCIUM 8.5 mg/dl (8.5-10.1); CARBON DIOXIDE 31 mmol/L (21-32); CHLORIDE 103 mmol/L (98-107); CREATININE 0.95 mg/dl (0.60-1.40); GLUCOSE 119 mg/dl (70-99); POTASSIUM 4.9 mmol/L (3.5-5.1); SODIUM 142 mmol/L (136-145)
--- NOTE | 2016-12-13 10:22 | CONSULTATION REPORT ---
DATE OF CONSULTATION: 12/11/2016 REASON FOR CONSULTATION: Sarcoid exacerbation, respiratory infection, shortness of breath. HISTORY OF PRESENT ILLNESS: The patient is a 66-year-old male who has a past medical history of sarcoid, who I saw in the office on 12/10/2016. He was seen in the office for exacerbation of his breathing we had been following for several weeks. He had actually been seen in the office a week prior for the same complaint and was started on oral antibiotics and prednisone. Prior to the visit on 12/03/2016, the patient had had an actual protracted course of exacerbation dating back to the beginning of the year. He has been on multiple courses of antibiotic and prednisone. He was actually admitted at [facility] for 3 days due to exacerbation of his breathing where he received IV antibiotics, IV steroids and pulmonary toilet. He also had a CAT scan done at [facility] which unfortunately the images have not been reviewed yet, but the dictated report did not indicate any masses, no unusual changes, no evidence of pneumonia. The patient again was treated and released home. Unfortunately, he never really seemed to improve and never got back to his baseline. Per my last visit with him, the patient had continued productive cough with thick yellow mucus. He also had hemoptysis x2. It was mostly just blood streaking in the mucus. He had had fever and chills off and on. No night sweats that he is aware of. He did have increased shortness of breath. He usually wears oxygen at night at 2 liters but had been wearing his oxygen pretty much continuous for about a week prior to me seeing him. Because of his continued difficulty with his breathing, he was admitted to [facility] directly from the office on 12/10/2016. When I saw him in the hospital for consult on the day of consult, 12/11/2016, he was still very tight in his chest. He was coughing. He stated that he felt like he had thick mucus down in his chest that he was unable to cough up or expectorate. He had continued wheezing, continued shortness of breath. He did feel that the oxygen was helping. He did feel that the pulmonary toilet in the form of nebulization was helping a little bit but it was not clearing him up. He was receiving IV steroids which he felt were mildly helpful as well. He had had no further fever or chills when I saw him. He did have a headache off and on, but he states that Tylenol did seem to help that. He had no other symptoms. No difficulty swallowing. No chest discomfort, no chest pain. No chest pressure or heaviness. No palpitations. He had no GI symptoms. No abdominal pain, no nausea or vomiting, no indigestion or heartburn. He denies any difficulty swallowing. He denies any episodes of choking when he eats. He denies any change in his bowels. No diarrhea or constipation. No difficulty voiding. No swelling in his extremities. The patient typically is on Dulera 100/5 two puffs twice a day at home. He does have nebulization in the form of albuterol as well. Unfortunately, when he is on steroids, he does get very anxious and has to use Ativan on an as-needed basis. Otherwise, no problems, no concerns. He does have a past medical history of sarcoid which he has had flares in the past but they typically present more just with wheezing. No fevers, no chills, no productive cough. These also typically respond to a slightly prolonged course of prednisone. 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 FAMILY HISTORY: Includes cancer and hypertension. SOCIAL HISTORY: The patient is a lifelong nonsmoker. The patient is a , having served in [place] with exposure to Agent [place]. He is and lives with his . ALLERGIES: THE PATIENT IS ALLERGIC TO TETRACYCLINE. HOME MEDICATIONS: Include aspirin 81 mg daily, Dulera 100/5 two puffs b.i.d., furosemide 40 mg daily, omeprazole 20 mg daily, potassium chloride 20 mEq daily, simvastatin 20 mg daily, valacyclovir 1000 mg t.i.d. as needed for flare of his zoster. He is on Levaquin and prednisone currently. He also has Ventolin inhaler which he uses 2 puffs q. 4 hours as needed. He also has albuterol and nebulizer which he uses q.i.d. as needed. REVIEW OF SYSTEMS: As above, otherwise unremarkable. PHYSICAL EXAMINATION: GENERAL: The patient is a 66-year-old male sitting up in bed, does not appear in any acute respiratory distress. There is no accessory muscle usage. He is able to complete sentences without significant difficulty. He is alert and oriented x3. Mood is good. Affect is good. VITAL SIGNS: Temp 36.9, pulse 69, respiration 20, blood pressure is 159/91, pulse ox is 95% on 3 liters. HEENT: Normocephalic, atraumatic. Pupils equal, round and reactive to light and accommodation. Extraocular movements are intact. [place], somewhat dry gingival and buccal mucosa. NECK: Supple. There is no mass, no adenopathy, no bruit. CHEST: The patient has diminished breath sounds bilaterally. He does have some expiratory wheeze diffusely throughout. There is no rale or rhonchi noted. CARDIOVASCULAR: Regular rate and rhythm. No murmurs, gallops or rubs. ABDOMEN: Soft, nontender. No guarding, rigidity or organomegaly. EXTREMITIES: No erythema, no edema. NEUROLOGIC: Cranial nerves II-XII are intact. No focal deficit noted. LABORATORY DATA: Shows white count of 7000, H\T\H 13.8 and 40.7, platelet count 109,000. BUN 22, creatinine 1.0. INR is 0.9. Influenza A and B are negative. Sputum culture is not back yet. Chest x-ray done on admission shows no acute changes. IMPRESSION: The patient is a 66-year-old male who is having what appears to be an acute bronchitis with significant mucus retention and shortness of breath. At this point, would like to try the patient with some Mucomyst via nebulizer, this is to be done twice daily. I would also like the patient to have vibration vest and flutter valve, hopefully this will help to loosen up some of the secretions. I also feel that the patient will require bronchoscopic evaluation because of this. I will discuss with Dr. Ugarte as Dr. Hannon is out of town at this time and Dr. Ugarte is familiar with this patient, therefore, will discuss this with him and get him on the schedule if possible. This was discussed with the patient, the patient is agreeable to this. Otherwise, continue current medications as they are, continue Solu-Medrol as it is, continue aggressive pulmonary toilet, and we will continue to monitor.
--- NOTE | 2016-12-13 10:27 | History & Physical Bridge Note ---
H&P Re-Evaluation Bridge Note: I have examined the patient, reviewed the History & Physical and in the interval since the performance of the History & Physical I have noted the following changes of clinical significance: No changes noted
--- NOTE | 2016-12-13 10:28 | Procedure Note ---
Pre-Mod Sedation Assessment General Date of Moderate Sedation: Dec 13, 2016. Vital Signs: Vital Signs Past 12 Hours Date Time Temp Pulse Resp B/P Pulse Ox O2 Delivery O2 Flow Rate FiO2 12/13/16 10:20 81 16 164/84 100 Mask 6.0 12/13/16 10:15 80 16 154/84 100 Mask 6.0 12/13/16 10:10 85 16 154/80 99 Mask 6.0 12/13/16 10:05 88 16 171/86 100 Mask 8.0 12/13/16 10:00 88 16 161/77 96 Mask 8.0 12/13/16 09:55 79 16 144/77 97 Nasal Cannula 2.0 12/13/16 07:45 Nasal Cannula 2.0 12/13/16 07:05 88 16 96 Nasal Cannula 2.0 12/13/16 07:01 36.6 85 18 133/72 94 Nasal Cannula 2.0 12/13/16 05:15 36.6 85 18 133/72 94 Nasal Cannula 2.0 12/13/16 00:00 93 Nasal Cannula 2.0 12/12/16 23:31 36.6 77 18 118/66 96 Nasal Cannula 2.0 Pre-Sedation Airway Assessment Oral Cavity: WNL Short Thick Neck: No Hx of Sleep Apnea: No Smoking Status: Never Smoker Mallampati Classification: Class II ASA Classification: Class I Procedure Planning Contraindications-for Mod Sed: None Yes Notes The planned sedation has been discussed with the patient and consent obtained. I have identified the patient, determined the appropriateness of sedation and have assessed the patient immediately prior to the procedure. All medicine(s) and interventions are by my order.
--- NOTE | 2016-12-13 10:32 | PULMONARY PROGRESS NOTE ---
DATE: 12/12/2016 PROBLEM LIST: Includes: 1. Acute bronchitis. 2. History of sarcoid with possible exacerbation. SUBJECTIVE: The patient reports that he is feeling better. He states that the Mucomyst did seem to help him. He states that the vibration vest seemed to help him as well. He states that he was able to expectorate quite a bit more mucus. He did have a little bit of blood in the mucus initially, but then it seemed to clear up. He states that his breathing is improved. He feels less short of breath. He feels less congested in his chest. He has less chest tenderness and tightness. He still is coughing and the cough is keeping him up at night. He has not slept well. He states he does have some wheezing, but that has improved as well. Denies any chest pain. Denies any palpitations. Denies any chest heaviness or tightness. Otherwise he feels well. No abdominal pain, no nausea or vomiting, no indigestion or heartburn. He is eating well. He is not having any difficulty swallowing. No change in his bowels. No difficulty voiding. He is not having any difficulties with diarrhea. No swelling in his extremities. He is voiding well. OBJECTIVE: GENERAL: The patient is a 66-year-old male lying in bed in no acute distress. He is alert and oriented x3. Mood is good. Affect is good. VITAL SIGNS: Temp 36.5, pulse 87, respirations 20, blood pressure is 146/80, pulse ox 94% on 3 liters. HEENT: Normocephalic, atraumatic. Pupils equal, round and reactive to light and accommodation. Extraocular movements are intact. [place] moist gingival and buccal mucosa. NECK: Supple. There is no mass, no adenopathy, no bruit. He has full range of motion without difficulty. No JVD or thyromegaly. CHEST: Improved breath sounds throughout, actually. He is less wheezy, less congested, but there is still some present. Improved air movement. CARDIOVASCULAR: Regular rate and rhythm. No murmurs, gallops or rubs. ABDOMEN: Bowel sounds present. Abdomen soft, nontender. No guarding, rigidity or organomegaly. EXTREMITIES: No erythema or edema. NEUROLOGIC: Cranial nerves II-XII are intact. No focal deficit noted. LABORATORY DATA: Shows a white count of 10,000, H\T\H 14.1 and 42.0, platelet count 131,000. BUN 29, creatinine 1.2. Sputum cultures come back showing Aspergillus. No new imaging data. IMPRESSION: This is a 66-year-old male with history of sarcoidosis who was admitted for exacerbation of his breathing with what appears to be a bacterial infection, also possibility of Aspergillus is present. I did speak with Dr. Castellon and recommended we start voriconazole 200 mg twice daily. She did put the order in for this. I do feel that the patient would still benefit from bronchoscopic evaluation as he has had some hemoptysis still. Most likely this is secondary to the infection; however, I would like direct visualization of the airways. He did have a CAT scan done within the past 3 weeks which did not show any mass or abnormality. Would recommend to continue aggressive pulmonary toilet. Continue vibration vest. Continue Mucomyst. Continue voriconazole. Also recommend to have the bronch done. He is scheduled for the bronchoscopy tomorrow at 11. If he does well with the bronch and he remains stable, he should be able to be discharged following bronchoscopic evaluation, otherwise keep him overnight and potentially discharged on Saturday. We will continue to follow through hospitalization.
[2016-12-13] MEDS ORDERED: NURSING VERBAL MED ORDER ONE (11:15)
--- NOTE | 2016-12-13 11:27 | OPERATIVE REPORT ---
DATE OF OPERATION: 12/13/2016 PROCEDURE: Fiberoptic bronchoscopy with bronchoalveolar lavage. INDICATIONS: Chronic persistent congestion in a patient with a known diagnosis of pulmonary sarcoidosis. ANESTHESIA PREOPERATIVELY: None. ANESTHESIA DURING PROCEDURE: 10 mg IV Versed, 100 mcg IV fentanyl, 20 mL 2% Xylocaine spray above and below the cords, and 4% viscous Xylocaine intranasally. DESCRIPTION OF PROCEDURE: Fiberoptic bronchoscope was inserted into the right naris with minimal difficulty. Significant sinus drainage was seen emanating from the sinus ostia. The cords were anesthetized. The cords approximated normally with phonation without evidence of lesions or paralysis and were anesthetized with 2% Xylocaine spray. The scope was then introduced into the trachea and right and left tracheobronchial tree. The charly was sharp. The right main stem bronchus was found to be free of endobronchial lesions. A significant tracheomalacia was seen throughout the right and left tracheobronchial tree. The right upper lobe bronchus, the apical posterior and anterior segments, bronchus intermedius, right middle lobe, the medial and lateral segments, all basilar segments and right lower lobe were found to be free of endobronchial lesions with mucopurulent secretions lavaged from each lobar segment until clear. Severe chronic inflammatory mucosal change was seen throughout the right tracheobronchial tree with bronchial crypts and clefts visible. The left tracheobronchial tree showed no endobronchial lesions seen. The left upper lobe, lingular subdivision and left lower lobe were free of endobronchial lesions with the same degree of inflammatory mucosal change throughout the left tracheobronchial tree and a significant amount of mucopurulent secretion was lavaged from each lobar segment until clear. No brushings or biopsies were deemed necessary. The procedure was terminated. The patient was given a nebulizer treatment with Xopenex 1.25 mg and transferred to the medical treatment unit hemodynamically stable with no signs of respiratory compromise. We will await microbiological and cytologic examination of the bronchial washings. I attest to the content of the Intraoperative Record and any orders documented therein. Any exceptio ns are noted below.
[2016-12-13] MEDS ORDERED: FENTANYL CITRATE INJ 50 MCG/1 ML 2 ML VIAL IV ONE (11:30)
[2016-12-13] MEDS ORDERED: MIDAZOLAM HCL 5 MG/ML 1 ML VIAL IV ONE ×2 (11:30→20:04)
[2016-12-13] MEDS: PANTOprazole SOD 40 MG TAB PO SCH (13:34)
[2016-12-13] MEDS: POTASSIUM CHLORIDE 20 MEQ TABCR PO SCH (13:35)
[2016-12-13] MEDS: FUROSEMIDE 40 MG TAB PO SCH (13:35)
[2016-12-13] MEDS: VORICONAZOLE 200 MG TAB PO SCH ×2 (13:38→20:02)
[2016-12-13] MEDS ORDERED: VFND200 PO ×2 (17:41→17:50)
[2016-12-13] MEDS ORDERED: PRED10TA PO (17:41)
--- NOTE | 2016-12-13 17:45 | Discharge Instructions ---
Discharge Instructions Admission Reason for Admission: Pneumonia; Exacerbation Of Sarcoidosis Discharge Discharge Diagnosis / Problem: Aspergillus Pneumonia; Exacerbation Of Sarcoidosis Discharge Goals Goal(s): Improve disease control, Diagnostic testing, Therapeutic intervention Activity Recommendations Activity Limitations: resume your previous activity Exercise/Sports Limitations: gradually increase as tolerated Shower/Bathe: no limitations . Instructions / Follow-Up Instructions / Follow-Up You were admitted and treated with IV steroids and found to have Aspergillus growing in your lungs. You were started on a new antibiotic for this called VORICONAZOLE. You will be on this for 8 weeks. Please schedule an appointment with Petros leavitt on Saturday of next week. You will be on a taper of steroids over the next week back to your usual home dose of 10mg daily. Current Hospital Diet Patient's current hospital diet: AHA Diet (Heart Healthy) Discharge Diet Recommended Diet: AHA Diet (Heart Healthy) Procedures Procedures Performed: Bronchoscopy Chest xray Echocardiogram Pending Studies Studies pending at discharge: yes List of pending studies: Final sputum and bronchial lavage cultures Medical Emergencies . Who to Call and When: Medical Emergencies: If at any time you feel your situation is an emergency, please call 911 immediately. . Non-Emergent Contact Non-Emergency issues call your: Primary Care Provider, Porter Sample Case Call Non-Emergent contact if: you have a fever, you have any medication questions you are having worsening shortness of breath or chest pain . . "Provider Documentation" section prepared by Christy Castellon. VTE Core Measure Inpt VTE Proph given/why not?: Unfractionated heparin SQ, T.E.Di Jansen, SCD 's
[2016-12-13 18:16] LABS: ALKALINE PHOSPHATASE 48 U/L (45-117); ALT/SGPT 33 U/L (12-78); AST/SGOT 11 U/L (15-37)
[2016-12-13] MEDS ORDERED: LEVALBUTEROL 1.25MG/3ML NEB INH ONE (20:04)
[2016-12-13] MEDS ORDERED: FENTANYL CITRATE 100 MCG 2 ML CARP IV ONE (20:04)
--- NOTE | 2016-12-19 22:14 | Discharge Summary ---
Discharge Summary Date of Service Dec 13, 2016. 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 Sarcoidosis. COMPARISON STUDY: Chest CT July 02, 2011 and chest radiograph November 29, 2013. FINDINGS: Right hemithorax volume loss is unchanged. There is no pneumothorax or pleural effusion. There is no evidence for pulmonary edema. Mediastinal widening is unchanged. Cardiomediastinal silhouette is stable. IMPRESSION: 1. No acute findings. No change in appearance of the chest. 2. Stable right hemithorax volume loss with asymmetric right upper lung interstitial thickening. The findings represent interstitial lung disease and may reflect sarcoidosis, better depicted on prior chest CT. ECHO: * Hyperdynamic left ventricular systolic function. * Left ventricular diastolic dysfunction. * Mild concentric left ventricular hypertrophy. * Trace mitral and tricuspid regurgitation. * Normal right heart and central venous pressures. * Aortic valve sclerosis mild, without significant aortic valvular stenosis. Consultations: Pulmonology Medication Reconciliation New Medications: Prednisone (Prednisone) 10 Mg Tab 40 MG PO DAILY for 30 Days, TAB x 2 days then 30mg daily x 2 days then 20mg daily x 2 days then 10mg daily Voriconazole (Voriconazole) 200 Mg Tab 200 MG PO BID for 56 Days, #112 TAB Continued Medications: Albuterol Inhaler (Ventolin Inhaler) Aers 2 PUFFS INH BID PRN for PRN, INHALER Albuterol Sulf (Proventil 0.083% 2.5MG/3ML) 2.5 Mg/3 Ml Nebu 2.5 MG INH QID PRN for SOB/Wheezing, EA Aspirin (Aspirin Ec Lo-Dose) 81 Mg Tab 81 MG PO DAILY Furosemide (Lasix) 40 Mg Tab 40 MG PO DAILY, TAB Lorazepam (Ativan) 0.5 Mg Tab 0.5 MG PO Q6H PRN for Anxiety, TAB Mometasone Furoate-Formoterol (Dulera 100/5 Mcg) 1 Aer Aer 2 PUFFS INH BID, AER RINSE MOUTH AFTER USE. Omeprazole (Prilosec) 20 Mg Cap 20 MG PO BID, CAP Potassium Chloride Microencaps (Potassium Chloride Er) 20 Meq Tab 20 MEQ PO DAILY Simvastatin (Zocor) 20 Mg Tab 20 MG PO QPM, TAB Valacyclovir Hcl (Valtrex) 500 Mg Tab 1000 MG PO TID, #9 TAB Discontinued Medications: Levofloxacin (Levaquin) 750 Mg Tab 750 MG PO DAILY, #10 TAB Referrals At Discharge Follow up Referrals: [facility] Referral - Within 1 Week with Petros Heath PA-C Discharge Exam Physical Exam: Vitals reviewed NAD, AAOx3 Anicteric sclerae, EOMI Oropharync clear without thrush RRR no mgr Pulm with diffuse rhonchi and insp/exp wheezes slightly improved Abd soft NT ND +BS Ext 1+ pitting edema legs to knees bilat Skin no rashes Review of Systems: Constitutional: No fever Eyes: No problem reported ENT: No problem reported Respiratory: + cough, + sputum, + wheezing Cardiovascular: + edema, No chest pain Abdomen: No pain Genitourinary - Male: No problem reported Neurologic: No problem reported Psychiatric: No problem reported Endocrine: No problem reported Hematologic / Lymphatic: No problem reported Integumentary: No problem reported Hospital Course Patient is a pleasant 66 y/o male, with PMHx of sarcodosis, anxiety, GERD, hyperlipidemia, herpes zoster, bilateral lower extremity edema, and chronic t wave abnormality on EKG, who was a direct admit from Petros Heath PA-C Pulmonology office due to failed outpatient treatment of acute bronchitis. Per patient, he has been dealing with this issue for over a month now. Treated x1 with a Z-pack, then multiple treatments with Levaquin. His latest treatment included Levaquin and a Prednisone sidney, started on 12/03. He has had minimal improvement in his symptoms. +productive cough- yellow/green mucus. +hemoptysis x1 episode on 12/10 in Petros's office. +SOB- patient was started on 2L O2 about 1 week ago, he is to wear O2 supplement all the time. Per , patient becomes very anxious when feeling SOB. Patient is having trouble sleeping due to cough. Patient denies any fever, chills, sweats, lightheadedness, dizziness, vision changes, CP, palpitations, wheezing, abdominal pain, nausea, vomiting, diarrhea , urinary symptoms, melena, numbness/tingling, weakness, muscle/joint pain, depression, active bleeding, or new skin discoloration/changes. He was admitted and a bronchoscopy was arranged. His sputum culture grew out Aspergillus. Bronchoscopy revealed significant tracheomalacia was seen throughout the right and left tracheobronchial tree. The right upper lobe bronchus, the apical posterior and anterior segments, bronchus intermedius, right middle lobe, the medial and lateral segments, all basilar segments and right lower lobe were found to be free of endobronchial lesions with mucopurulent secretions lavaged from each lobar segment until clear. Severe chronic inflammatory mucosal change was seen throughout the right tracheobronchial tree. He was started on voriconazole and had improvement as well from being on higher dose steroids and bronchial lavage during bronchoscopy. He was stable for discharge to home the following day on voriconazole x 8 weeks with having normal baseline LFTs and creatinine in the hospital. He will follow up with his PCP and [facility], Petros Heath within 1 week. Total Time Spent: Greater than 30 minutes This includes examination of the patient, discharge planning, medication reconciliation, and communication with other providers. Discharge Instructions Please refer to the electronic Patient Visit Report (Discharge Instructions) for additional information. Follow-Up PCP within 1 week Pulmonology within 1 week Additional Copies To JOE DOWLING M.D.; Petros Heath PA-C
[2017-01-09 16:42] LABS: HERPES SIMPLEX CULT SOURCE RESPIRATORY-R/L TRAC; HERPES SIMPLEX VIRUS CULT NOT ISOLATED (NOT ISOLATED)
[2017-02-20] MEDS ORDERED: PRED10TA PO (08:45)
[2017-02-20] MEDS ORDERED: OXGN (08:51)
== END 2016-12-13 20:05 | disposition home or self-care (01) | DRG 854 ==
LOC: C.MS2W 14:40
PROVIDERS: ADMIT Internal Medicine; ATTEND Family Medicine
PROC: 0B9C8ZX Drainage of Right Upper Lung Lobe, Via Natural or Artificial Opening Endoscopic, Diagnostic (ICD-10-PCS; principal; 2016-12-13)
PROC: 0B9F8ZX Drainage of Right Lower Lung Lobe, Via Natural or Artificial Opening Endoscopic, Diagnostic (ICD-10-PCS; principal; 2016-12-13)
PROC: 0B9J8ZX Drainage of Left Lower Lung Lobe, Via Natural or Artificial Opening Endoscopic, Diagnostic (ICD-10-PCS; principal; 2016-12-13)
PROC: 0B9D8ZX Drainage of Right Middle Lung Lobe, Via Natural or Artificial Opening Endoscopic, Diagnostic (ICD-10-PCS; principal; 2016-12-13)
PROC: 0B9G8ZX Drainage of Left Upper Lung Lobe, Via Natural or Artificial Opening Endoscopic, Diagnostic (ICD-10-PCS; principal; 2016-12-13)
DX: B44.1 Other pulmonary aspergillosis (principal); J84.9 Interstitial pulmonary disease, unspecified; R04.2 Hemoptysis; D86.0 Sarcoidosis of lung; K21.9 Gastro-esophageal reflux disease without esophagitis; E78.5 Hyperlipidemia, unspecified; F41.9 Anxiety disorder, unspecified; R60.0 Localized edema; B02.9 Zoster without complications; Z99.81 Dependence on supplemental oxygen; Z77.098 Contact with and (suspected) exposure to other hazardous, chiefly nonmedicinal, chemicals

== ENCOUNTER → 2017-02-20 | Day surgery (SDC) | payer OTHER ==
[2017-02-20] VITALS (20 sets, daily range): BP systolic 130–211; BP diastolic 62–134; PULSE 75–120; TEMP 36.1–37.1; O2SAT 84–100; Ht 175.3 cm; Wt 106.0 kg
[~2017-02-20] VITALS: Ht 175.3 cm; Wt 106.0 kg
[~2017-02-20] MED LIST changes: +D5W AND 1/2NSS 1,000 ML IV SCH; +FENTANYL CITRATE INJ 50 MCG/1 ML 2 ML VIAL IV ONE; +FENTANYL CITRATE INJ 50 MCG/1 ML 2 ML VIAL IV SCH; +LEVALBUTEROL 1.25MG/3ML NEB INH ONE; +LEVALBUTEROL 1.25MG/3ML NEB INH SCH; -LEVO1TAB35 PO; +LIDOCAINE 4% W/AFRIN NASAL SOLN 4ML ONE; +LIDOCAINE HCL 2% LOCAL 50ML VIAL INFIL ONE; +MIDAZOLAM HCL 5 MG/ML 1 ML VIAL IV ONE; +MIDAZOLAM HCL 5 MG/ML 1 ML VIAL IV SCH; +NURSING VERBAL MED ORDER ONE; +OXGN; +PRED10TA PO; +VFND200 PO
--- NOTE | 2017-02-20 09:27 | Procedure Note ---
Pre-Mod Sedation Assessment General Date of Moderate Sedation: February 20, 2017. Review Cardiovascular: regular rate, rhythm, + pertinent finding (bilateral lower ext 1+ pitting edema) Abdomen: normal bowel sounds, non tender, soft, no organomegaly, no pulsatile mass, normal rectal exam, occult blood negative Lungs: + pertinent finding (Right jeannie-thorax: diffuse rhonchi/Left ehmi-thorax : IMAN decreased air-movment IMAN diffuse rhonchi) Airway Class: II Pre-Sedation Airway Assessment Oral Cavity: WNL Able to Visualize Vocal Cords: Yes Short Thick Neck: Yes Hx of Sleep Apnea: No Smoking Status: Never Smoker Mallampati Classification: Class III Procedure Planning Contraindications-for Mod Sed: None Yes Notes The planned sedation has been discussed with the patient and consent obtained. I have identified the patient, determined the appropriateness of sedation and have assessed the patient immediately prior to the procedure. All medicine(s) and interventions are by my order.
--- NOTE | 2017-02-20 10:57 | Bronchoscopy Procedure Note ---
Bronchoscopy Procedure Note Procedure: Bronchoscopy, conscious sedation, with BAL IMAN Consent: Obtained through the patient placed into the chart Preprocedural diagnosis: chronic bronchiectasis with Aspergillosis Postprocedural diagnosis: chronic bronchiectasis with Aspergillosis, vocal cord dysfunction, EDAC Start time: 1013 End time: 1028 Total time: 15min Analgesia: 2% liquid lidocaine: Via nebulizer 4% gel lidocaine: Via right naris 2% liquid lidocaine: Via bronchoscopy Sedation: Versed IV: 4mg Fentanyl IV: 100 g Procedure: The [employer] video bronchoscope was used for this procedure and initially passed down through the right naris Right naris/posterior naris/posterior oropharynx: Anatomically within normal limits Glottis: Anatomically within normal limits, horse shoe shaped Vocal cords: Proper abduction and abduction, anatomically within normal limits Subglottis: Anatomically within normal limits Trachea/Malia: sevre EDAC with 80% collapse during tidal volume breathing in the up-right position Right bronchial tree: Right mainstem bronchus: 80% EDAC Right upper lobe: Anatomically within normal limits Bronchus intermedius: 80% EDAC Right middle lobe: Anatomically within normal limits Right lower lobe: Anatomically within normal limits Findings: 80% EDAC Left bronchial tree: Left mainstem bronchus: 80% EDAC Left upper lobe: Anatomically within normal limits Lingula: Anatomically within normal limits Left lower lobe: Anatomically within normal limits Findings: IMAN notable friable with bleeding s/p BAL coming from the distant airways Bronchial alveolar lavage: 80cc lavage with 35cc returned EBL: 3cc Complications: post-procedural hypoxemia resolved with BiPAP and high flow oxygen for 3 mins Follow-up: [facility]
--- NOTE | 2017-02-20 11:01 | Discharge Instructions ---
Discharge Instructions Date of Service February 20, 2017. Admission Reason for Admission: Acute Brochitis, Aspergillis, Sob Discharge Discharge Diagnosis / Problem: bronchiectasis with associated aspergillous infection vs. allergic reaction Discharge Goals Goal(s): Improve function, Diagnostic testing Activity Recommendations Activity Limitations: resume your previous activity . Instructions / Follow-Up Instructions / Follow-Up follow up in the [facility] Current Hospital Diet Patient's current hospital diet: Discharge Diet Recommended Diet: Regular Diet Procedures Procedures Performed: Bronchoscopy with bronchial lavage of the left upper lobe and consious sedation Pending Studies Studies pending at discharge: no Medical Emergencies . Who to Call and When: Medical Emergencies: If at any time you feel your situation is an emergency, please call 911 immediately. . Non-Emergent Contact Non-Emergency issues call your: [employer] Call Non-Emergent contact if: temperature is above 101.5 . . "Provider Documentation" section prepared by Ajit Hannon. . VTE Core Measure Inpt VTE Proph given/why not?: Treatment not indicated
== END | disposition home or self-care (01) ==
LOC: C.ACU 08:28
PROVIDERS: ATTEND Internal Medicine Critical Care Medicine
DX: J20.9 Acute bronchitis, unspecified (principal); I48.91 Unspecified atrial fibrillation; K21.0 Gastro-esophageal reflux disease with esophagitis; E78.5 Hyperlipidemia, unspecified; Z79.82 Long term (current) use of aspirin; Z80.1 Family history of malignant neoplasm of trachea, bronchus and lung; Z80.3 Family history of malignant neoplasm of breast; Z80.0 Family history of malignant neoplasm of digestive organs; Z82.49 Family history of ischemic heart disease and other diseases of the circulatory system

== ENCOUNTER 2023-09-23 19:19 | Inpatient (IN) ==
[2023-09-23] MEDS ORDERED: ALBUT/IPRATROP 3MG/0.5MG NEB 3 ML VIAL NEB STA ×2 (20:03→23:15)
[2023-09-23 20:06] LABS: Basophils # (auto) 0.02 K/uL (0.00-0.20); Basophils % (auto) 0.4 %; Eosinophils # (auto) 0.06 K/uL (0.00-0.50); Eosinophils % (auto) 1.1 %; Hematocrit (blood only) 40.9 % (42.0-52.0); Hemoglobin 12.9 g/dl (14.0-18.0); Immature Granulocytes # (auto) 0.04 K/uL (0.01-0.20); Immature Granulocytes % (auto) 0.7 %; Lymphocytes # (auto) 0.83 K/uL (1.20-3.40); Lymphocytes % (auto) 15.2 %; Mean Corpuscular Hemoglobin 26.8 pg (25.0-34.0); Mean Corpuscular Hgb Conc 31.5 g/dL (32.0-36.0); Mean Platelet Volume 8.7 fL (9.4-12.4); Monocytes # (auto) 0.76 K/uL (0.11-0.59); Monocytes % (auto) 13.9 %; Neutrophils # (auto) 3.75 K/uL (1.40-6.50); Neutrophils % (auto) 68.7 %; Platelet Count 130 K/uL (130-400); RDW Coefficient of Variation 14.9 % (11.5-14.5); RDW Standard Deviation 45.6 fL (36.4-46.3); Red Blood Count 4.81 M/uL (4.70-6.10); White Blood Count 5.46 K/ul (4.8-10.8)
[2023-09-23 20:25] LABS: Alanine Aminotransferase 24 U/L (7-52); Albumin Globulin Ratio 1.6 (0.9-2); Albumin Level 4.2 gm/dl (3.4-5.0); Alkaline Phosphatase 104 U/L (34-104); Anion Gap 8 (3-11); Aspartate Aminotransferase 23 U/L (13-39); BUN Creatinine Ratio 21.1 (10-20); Bilirubin,Total 0.5 mg/dl (0.2-1.0); Blood Urea Nitrogen 19 mg/dl (6-23); Calcium 8.7 mg/dl (8.6-10.3); Carbon Dioxide 33 mmol/L (21-32); Chloride 96 mmol/L (98-107); Est GFR (African American) 97.2 ml/min; Est GFR (Non-African American) 83.8 ml/min; Globulin 2.7 gm/dl (2.5-4.0); Glucose 107 mg/dl (70-99(Fasting)); Sodium 137 mmol/L (136-145); Total Protein 6.9 gm/dl (6.0-8.3)
[2023-09-23 20:31] LABS: Troponin I High Sensitivity 19.5 pg/ml (0-20)
[2023-09-23 20:32] LABS: Partial Thromboplastin Ratio 0.9; Partial Thromboplastin Time 25 Seconds (21-31); Prothrombin Time 11.1 Seconds (9.0-12.0)
[2023-09-23 20:39] LABS: Influenza A virus by PCR Negative (Neg); Influenza B virus by PCR Negative (Neg); SARS CoV2 RNA(COVID-19) Ceph NEGATIVE (Negative)
[2023-09-23 20:43] LABS: RSV by PCR Positive (Neg)
[2023-09-23 21:01] LABS: D Dimer 3820 ug/L FEU (0-500)
--- NOTE | 2023-09-23 21:19 | Emergency Department Note ---
Impression & Plan Acute dyspnea, Hypoxia, Pulmonary sarcoidosis, Respiratory syncytial virus (RSV), PNA (pneumonia) ED Provider Note ED Provider Note NAME: PRIYA RODRIGUEZ AGE:73 SEX: Male : 1950 ARRIVES VIA: private vehicle INFORMANT: Patient ED PROVIDER(s): Tracy Gudino DO CHIEF COMPLAINT: Increased shortness of breath HPI: This is a 73-year-old male with a history of pulmonary sarcoidosis uses oxygen chronically who presents emergency department due to concern for worsening shortness of breath and persistent cough. Patient began having symptoms around , and was seen and evaluated by Dr. Simpson of pulmonology. He states antibiotics, steroids, Mucinex, and 2 different inhalers were added at that time. He states he has been taking all of these new medications as prescribed and still feels very short of breath with any exertion to the point where he feels as though he needs to turn up his home oxygen. He states he typically wears 2 L/min. He states when he first began feeling ill he had a productive cough, now he just has a dry cough. He states he has nasal congestion and rhinorrhea additionally. No further fevers or chills. He feels his appetite is unchanged. He denies vomiting or diarrhea. Patient does take steroids chronically, currently is taking 10 mg daily. PAST MEDICAL HISTORY:See Below PAST SURGICAL HISTORY:See Below FAMILY HISTORY:See Below SOCIAL HISTORY:See Below HOME MEDICATIONS:See Below ALLERGIES:See Below VITALS:See Below PHYSICAL EXAMINATION: GENERAL: alert, well appearing, well nourished, no distress, non-toxic EYE EXAM: normal conjunctiva, PERRL and EOM's grossly intact OROPHARYNX: no exudate, no erythema, lips, buccal mucosa, and tongue normal and mucous membranes are moist NECK: supple, no nuchal rigidity, no adenopathy, non-tender LUNGS: Conversational dyspnea noted, scattered bilateral rhonchi and wheeze, increased work of breathing during conversation and specifically with any movement or ambulation despite being on oxygen HEART: no murmurs, S1 normal and S2 normal ABDOMEN: abdomen soft, non-tender, normo-active bowel sounds, no masses, no rebound or guarding. BACK: Back is symmetrical on inspection and there is no deformity, no midline tenderness, no CVA tenderness. SKIN: no rashes, petechiae, orbruising UPPER EXTREMITIES: upper extremities are grossly normal. FROM, nml pulses b/l. LOWER EXTREMITIES: 1+ bilateral pitting edema. FROM, nml pulses b/l. NEURO EXAM: Normal sensorium, cranial nerves II-XII grossly intact, normal speech, no facial droop,nogross weakness of arms, no gross weakness of legs. Gross sensation intact. No ataxia. Vital Signs: reviewed and remarkable Differential Diagnosis: pneumonia, bronchitis, COPD/Asthma exacerbation, pneumothorax, pulmonary embolism, congestive heart failure, acute coronary syndrome, as well as others were considered MEDICAL DECISION MAKING: This is a 73-year-old male with a history of pulmonary sarcoidosis on chronic oxygen therapy who presents due to worsening respiratory distress despite recent outpatient evaluation and treatment by pulmonology. Patient initially seen in triage waiting room area. Labs drawn and sent, IV established, EKG and chest x- ray performed and interpreted by me and once a bed was available patient monitored on telemetry. He was given a DuoNeb here with some improvement in his wheezing. Chest x-ray appears worse compared to prior. Additional labs added after discussion via [facility] text with pulmonology. Patient noted to have elevated D-dimer also and was sent for CT angiography. BNP minimally elevated and I have a low suspicion for occult CHF. Patient had just finished a course of antibiotics as an outpatient. His breathing was worse here during ambulatory trial and he did become hypoxic despite being on his oxygen which he had been turning up at home. CT concerning for pneumonia and/or pleural effusion with possible evolving empyema. Patient did report difficulty breathing from prior administration of Rocephin. Antibiotics discussed with pharmacist. Due to concerning reaction, patient started on meropenem. Sputum cultures added. Case discussed with [facility] hospitalist for additional evaluation and management. I suspect patient required RSV infection which likely worsened his underlying pulmonary sarcoidosis. I do have concern that patient seem to fail the prior outpatient regimen from pulmonology and now appears to have pneumonia and effusion on CT. Consultation(s): 2010: Discussed with Dr. Simpson via [facility] Text. He responded regarding the patient. 2329: Discussed with pharmacyJesus. 2339: Discussed with Dr. Shin, [place] hospitalist, for additional evaluation/mgmt. ER Treatment Provided: See below Diagnostics Interpreted By Me: -ECG: Normal sinus at 92, normal axis, normal intervals, nonspecific ST/T wave changes -Cardiac Monitoring: An order was placed for continuous cardiac monitoring. The monitor shows a rate of 98 with normal sinus rhythm. -Laboratory studies: As stated above and show below. -Imaging studies: X-ray Chest: A single view study of the chest was reviewed and was negative for cardiomegaly, pulmonary edema, or wide mediastinum. Increased interstitial markings and possible left lower lobe infiltrate versus left pleural effusion. Triage Nursing Note Reviewed Prior/Outside Records Reviewed-pulmonology office visit from September 09, 2023 Past Med/Surg History Medical History Sarcoidosis Hypoxia Acute bronchitis Mixed restrictive and obstructive lung disease Surgical History H/O cardiac catheterization Hx of biopsy Family History Other Breast cancer Hypertension Lung cancer Stroke Social History Smoking Status: Never smoker Hx Alcohol Use: No Hx Substance Use: No Preferred Language: Nigerian Communication Ability: Effective Clinical Tech Required: No Beliefs That Will Affect Care: None marital status: Current Living Situation: Spouse Other Information That Helps Us Care for You: No Feels Safe at Home: Yes Safety Concerns: Feels Safe At This Time Assistive Devices: Glasses and Hearing Aid - Bilateral Allergies Allergies Allergy/AdvReac Type Severity Reaction Status Date / Time cefuroxime Allergy Unknown unknown Verified 09/23/23 21:51 formoterol [From Perforomist] Allergy Unknown Unknown Verified 09/23/23 21:51 minocycline Allergy Unknown unknown Verified 09/23/23 21:51 tetracycline Allergy Unknown Unknown Verified 09/23/23 21:51 duloxetine [From Cymbalta] AdvReac Intermediate HEADACHES Verified 09/23/23 21:51 voriconazole AdvReac Intermediate hallucinati Verified 09/23/23 21:51 ons Home Meds Home Medications Medication Instructions Recorded Confirmed Oxygen Home #1 ea 08/07/19 09/03/23 aspirin 81 mg tablet,delayed 81 mg PO DAILY 08/07/19 09/23/23 release (Adult Low Dose Aspirin) irbesartan 75 mg tablet (Avapro) 75 mg PO DAILY 08/07/19 09/23/23 atorvastatin 20 mg tablet 20 mg PO DAILY 01/26/20 09/23/23 multivitamin 1 tab PO DAILY 01/26/20 09/23/23 albuterol sulfate 2.5 mg/3 mL 2.5 mg inhalation Q4H PRN 09/23/23 09/23/23 (0.083 %) solution for nebulization Shortness Of Breath Or Wheezing furosemide 40 mg tablet 40 mg PO DAILY 09/23/23 09/23/23 prednisone 10 mg tablet 10 mg PO DAILY 09/23/23 09/23/23 Previous Rx's Medication Instructions Recorded codeine 10 mg-guaifenesin 100 mg/5 5 ml PO Q6H PRN cough #236 mL 11/16/20 mL oral liquid valacyclovir 1 gram tablet 1,000 mg PO Q8H PRN Shingles #21 03/14/21 (Valtrex) tabs omeprazole 20 mg capsule,delayed 20 mg PO BID #180 caps 07/17/21 release Flutter Valve #1 ea 01/15/23 Ventolin HFA 90 mcg/actuation 2 puff inhalation Q4H PRN 07/22/23 aerosol inhaler (albuterol sulfate) shortness of breath or wheezing #6 Inhalers arformoterol 15 mcg/2 mL solution 15 mcg (2 mL) inhalation DAILY 09/09/23 for nebulization (Brovana) #120 mL budesonide 0.5 mg/2 mL suspension 0.5 mg (2 mL) inhalation BID #60 mL 09/09/23 for nebulization guaifenesin 1,200 mg tablet, 1,200 mg PO BID #60 tabs 09/09/23 extended release 12 hr (Mucinex) Results & Data (ED) Vital Signs Vital Signs - 24 hr 09/23/23 19:25 09/23/23 19:43 09/23/23 20:45 Temperature 36.5 C Temperature Source Temporal Artery Scan Pulse Rate 98 H 95 H 90 Pulse Rate [Apical] Pulse Rate from SpO2 Sensor Pulse Rhythm [Apical] Pulse Strength [Apical] Respiratory Rate 18 Respiratory Effort / Characteristics Non-Labored Spontaneous Respiratory Depth Normal Blood Pressure 162/69 H Blood Pressure [Right Arm] Blood Pressure Mean 100 Blood Pressure Mean [Right Arm] Blood Pressure Position Sitting Pulse Oximetry 91 94 Oxygen Delivery Method Nasal Cannula Nasal Cannula Oxygen Flow Rate 2 2 Sepsis Recent Fever Within 48 Hours No Sepsis New/Unexplained Change in Mental Status N/A Sepsis Action Taken by Nursing No Action Required 09/23/23 20:46 09/23/23 20:49 09/23/23 20:50 Temperature Temperature Source Pulse Rate 94 H Pulse Rate [Apical] 92 H Pulse Rate from SpO2 Sensor Pulse Rhythm [Apical] Regular Pulse Strength [Apical] Normal Respiratory Rate 21 20 Respiratory Effort / Characteristics Non-Labored Respiratory Depth Normal Blood Pressure 144/66 H Blood Pressure [Right Arm] 144/66 H Blood Pressure Mean 92 Blood Pressure Mean [Right Arm] 92 Blood Pressure Position Pulse Oximetry 96 96 96 Oxygen Delivery Method Nasal Cannula Nasal Cannula Nasal Cannula Oxygen Flow Rate 2 2 2 Sepsis Recent Fever Within 48 Hours Sepsis New/Unexplained Change in Mental Status Sepsis Action Taken by Nursing 09/23/23 21:00 09/23/23 21:30 09/23/23 22:03 Temperature Temperature Source Pulse Rate 99 H Pulse Rate [Apical] Pulse Rate from SpO2 Sensor 98 H 88 91 H Pulse Rhythm [Apical] Pulse Strength [Apical] Respiratory Rate 28 H 24 Respiratory Effort / Characteristics Respiratory Depth Blood Pressure 126/62 145/71 H Blood Pressure [Right Arm] Blood Pressure Mean 83 95 Blood Pressure Mean [Right Arm] Blood Pressure Position Pulse Oximetry 92 94 94 Oxygen Delivery Method Nasal Cannula Nasal Cannula Nasal Cannula Oxygen Flow Rate 2 2 2 Sepsis Recent Fever Within 48 Hours Sepsis New/Unexplained Change in Mental Status Sepsis Action Taken by Nursing 09/23/23 22:30 09/23/23 23:00 09/23/23 23:30 Temperature Temperature Source Pulse Rate 96 H Pulse Rate [Apical] Pulse Rate from SpO2 Sensor 86 82 96 H Pulse Rhythm [Apical] Pulse Strength [Apical] Respiratory Rate 16 Respiratory Effort / Characteristics Respiratory Depth Blood Pressure 130/66 128/58 L 142/76 H Blood Pressure [Right Arm] Blood Pressure Mean 87 81 98 Blood Pressure Mean [Right Arm] Blood Pressure Position Pulse Oximetry 93 96 99 Oxygen Delivery Method Nasal Cannula Nasal Cannula Oxygen Flow Rate 2 3 Sepsis Recent Fever Within 48 Hours Sepsis New/Unexplained Change in Mental Status Sepsis Action Taken by Nursing 09/24/23 00:00 09/24/23 00:30 09/24/23 01:00 Temperature Temperature Source Pulse Rate 96 H 98 H 107 H Pulse Rate [Apical] Pulse Rate from SpO2 Sensor 96 H 98 H 108 H Pulse Rhythm [Apical] Pulse Strength [Apical] Respiratory Rate 23 23 14 Respiratory Effort / Characteristics Respiratory Depth Blood Pressure Blood Pressure [Right Arm] Blood Pressure Mean Blood Pressure Mean [Right Arm] Blood Pressure Position Pulse Oximetry 96 98 93 Oxygen Delivery Method Oxygen Flow Rate Sepsis Recent Fever Within 48 Hours Sepsis New/Unexplained Change in Mental Status Sepsis Action Taken by Nursing Laboratory Data 09/23/23 19:45 09/23/23 19:45 Lab Results 09/23/23 09/23/23 09/23/23 Range/Units 19:42 19:45 19:45 WBC 5.46 (4.8-10.8) K/ul RBC 4.81 (4.70-6.10) M/uL Hgb 12.9 L (14.0-18.0) g/dl Hct 40.9 L (42.0-52.0) % MCV 85.0 (80.0-100.0) fL MCH 26.8 (25.0-34.0) pg MCHC 31.5 L (32.0-36.0) g/dL RDW Std Deviation 45.6 (36.4-46.3) fL RDW Coeff of Ginny 14.9 H (11.5-14.5) % Plt Count 130 (130-400) K/uL MPV 8.7 L (9.4-12.4) fL Immature Gran % (Auto) 0.7 % Neut % (Auto) 68.7 % Lymph % (Auto) 15.2 % [place] % (Auto) 13.9 % Eos % (Auto) 1.1 % Baso % (Auto) 0.4 % Neut # (Auto) 3.75 (1.40-6.50) K/uL Lymph # (Auto) 0.83 L (1.20-3.40) K/uL [place] # (Auto) 0.76 H (0.11-0.59) K/uL Eos # (Auto) 0.06 (0.00-0.50) K/uL Baso # (Auto) 0.02 (0.00-0.20) K/uL Immature Gran # (Auto) 0.04 (0.01-0.20) K/uL PT 11.1 (9.0-12.0) Seconds INR 1.0 (0.9-1.1) APTT 25 (21-31) Seconds PTT Ratio 0.9 D-Dimer 3820 H* Cancelled (0-500) ug/L FEU Sodium 137 (136-145) mmol/L Potassium 4.0 (3.5-5.1) mmol/L Chloride 96 L (98-107) mmol/L Carbon Dioxide 33 H (21-32) mmol/L Anion Gap 8 (3-11) BUN 19 (6-23) mg/dl Creatinine 0.90 (0.6-1.4) mg/dl Est Cr Clr Drug Dosing Not Reportable Est GFR ( Amer) 97.2 ml/min Est GFR (Non-Af Amer) 83.8 ml/min BUN/Creatinine Ratio 21.1 H (10-20) Glucose 107 H (70-99(Fasting)) mg/dl Calcium 8.7 (8.6-10.3) mg/dl Total Bilirubin 0.5 (0.2-1.0) mg/dl AST 23 (13-39) U/L ALT 24 (7-52) U/L Alkaline Phosphatase 104 (34-104) U/L Troponin I High Sens 19.5 (0-20) pg/ml B-Natriuretic Peptide 111 H (0-100) pg/ml Total Protein 6.9 (6.0-8.3) gm/dl Albumin 4.2 (3.4-5.0) gm/dl Globulin 2.7 (2.5-4.0) gm/dl Albumin/Globulin Ratio 1.6 (0.9-2) Procalcitonin < 0.05 (0-0.5) ng/ml SARS-CoV-2 (PCR) NEGATIVE (Negative) Influenza Type A (PCR) Negative (Neg) Influenza Type B (PCR) Negative (Neg) RSV (RT-PCR) Positive A* (Neg) Administered Medications Sodium Chloride (Nss) 1,000 mls @ 125 mls/hr IV .Q8H RD Stop: 10/23/23 21:14 Last Admin: 09/23/23 22:59 Dose: 125 mls/hr Documented By: TALIB Discontinued Medications Albuterol (Albut/Ipratrop 3mg/0.5mg Neb 3 Ml Vial) 3 ml NEB NOW STA; Protocol Stop: 09/23/23 20:04 Last Admin: 09/23/23 20:43 Dose: 3 ml Documented By: TALIB Albuterol (Albut/Ipratrop 3mg/0.5mg Neb 3 Ml Vial) 3 ml NEB NOW STA; Protocol Stop: 09/23/23 23:16 Last Admin: 09/23/23 23:24 Dose: 3 ml Documented By: LAUREN Meropenem 500 mg/ Syringe 10 mls @ 2 mls/min IV NOW STA; Protocol Stop: 09/24/23 00:05 Last Admin: 09/24/23 00:20 Dose: 2 mls/min Documented By: DENNIS Ioversol (Optiray 320 125ml) 119 ml IV ONCE ONE Stop: 09/23/23 21:57 Last Admin: 09/23/23 21:56 Dose: 119 ml Documented By: CRUZITO Imaging Data Radiologist's Impression: Chest CTA 09/23/23 21:13 Exam(s): CTA CHEST IV Amt: 117 ml optiray 320 EXAM: CT Angiography Chest With Intravenous Contrast CLINICAL HISTORY: Reason for exam: PE. TECHNIQUE: Axial computed tomographic angiography images of the chest with intravenous contrast. CTDI is 27.93 mGy and DLP is 985.58 mGy-cm. Automated exposure control was utilized for the study. A dose lowering technique was utilized adhering to the principles of ALARA. MIP reconstructed images were created and reviewed. COMPARISON: No relevant prior studies available. FINDINGS: Pulmonary arteries: Unremarkable. No pulmonary embolism. Aorta: Atherosclerotic changes of the aorta. No thoracic aortic aneurysm. Lungs: Airspace consolidation in the LEFT lower lobe, concerning for round atelectasis versus pneumonia. Correlate clinically. Atelectasis at the lung bases. Pleural space: Small LEFT pleural effusion with multiple locules of air, which may represent early stages of a empyema. Correlate clinically. Heart: Mild cardiomegaly. No significant pericardial effusion. No evidence of RV dysfunction. Mediastinum: Calcified mediastinal and hilar lymph nodes, correlate for history of granulomatous disease. Bones/joints: Degenerative changes of the spine. No acute fracture. No dislocation. Soft tissues: Unremarkable. Lymph nodes: See above. Liver: Hepatic steatosis. IMPRESSION: 1. Airspace consolidation in the LEFT lower lobe, concerning for round atelectasis versus pneumonia. Correlate clinically. 2. Small LEFT pleural effusion with multiple locules of air, which may represent early stages of a empyema. Correlate clinically. 3. Hepatic steatosis. 4. Calcified mediastinal and hilar lymph nodes, correlate for history of granulomatous disease. Electronically signed by: Jagjit Tran MD 09/23/23 22:27 PM Discharge Plan Visit Data Chief Complaint: Shortness of Breath/Dyspnea Stated Complaint: SOB, COUGH, CONGESTION ED Provider: Tracy Gudino Discharge Problem: Acute dyspnea, Hypoxia, Pulmonary sarcoidosis, Respiratory syncytial virus (RSV), PNA (pneumonia) Patient Disposition: Admitted As Inpatient Discharge Instructions Interventions: ED Discharge Assessment Last Done: 09/24/23 01:47 Prescriptions Prescriptions: No Action aspirin [Adult Low Dose Aspirin] 81 mg tablet,delayed release (DR/EC) 81 mg PO DAILY (DME) Oxygen Home Liters Per Minute See Dose Instructions .ROUTE .MEDSUPPLY Qty: 1 Rx Instructions: 3lpm irbesartan [Avapro] 75 mg tablet 75 mg PO DAILY codeine-guaifenesin 10-100 mg/5 mL liquid 5 ml PO Q6H PRN (Reason: cough) Qty: 236 0RF valacyclovir [Valtrex] 1 gram tablet 1,000 mg PO Q8H PRN (Reason: Shingles) Qty: 21 5RF omeprazole 20 mg capsule,delayed release(DR/EC) 20 mg PO BID Qty: 180 1RF albuterol sulfate [Ventolin HFA] 90 mcg/actuation HFA aerosol inhaler 2 puff INH Q4H PRN (Reason: shortness of breath or wheezing) Qty: 6 1RF budesonide 0.5 mg/2 mL suspension for nebulization 0.5 mg inhalation BID Qty: 60 2RF Rx Instructions: STARTED 09/09/23 FOR 15 DAYS. arformoterol [Brovana] 15 mcg/2 mL solution for nebulization 15 mcg inhalation DAILY Qty: 120 3RF guaifenesin [Mucinex] 1,200 mg tablet extended release 12hr 1,200 mg PO BID Qty: 60 3RF atorvastatin 20 mg tablet 20 mg PO DAILY multivitamin Tablet 1 tab PO DAILY (DME) Flutter Valve Device See Rx Instructions .ROUTE .MEDSUPPLY Qty: 1 0RF Rx Instructions: Use after nebulizer treatment and as needed during the day prednisone 10 mg Tablet 10 mg PO DAILY Rx Instructions: PER PT "UNTIL FEELING BETTER". furosemide 40 mg tablet 40 mg PO DAILY Rx Instructions: TAKE 1 TABLET DAILY albuterol sulfate 2.5 mg /3 mL (0.083 %) solution for nebulization 2.5 mg inhalation Q4H PRN (Reason: Shortness Of Breath Or Wheezing) Rx Instructions: INHALE 2.5 MG (3 ML) EVERY 4 HOURS NEEDED FOR SHORTNESS OF BREATH OR WHEEZING
[2023-09-23] MEDS ORDERED: OPTIRAY 320 125ml IV ONE (21:56)
--- NOTE | 2023-09-23 22:28 | CT Scan Report ---
Exam(s): CTA CHEST IV Amt: 117 ml optiray 320 EXAM: CT Angiography Chest With Intravenous Contrast CLINICAL HISTORY: Reason for exam: PE. TECHNIQUE: Axial computed tomographic angiography images of the chest with intravenous contrast. CTDI is 27.93 mGy and DLP is 985.58 mGy-cm. Automated exposure control was utilized for the study. A dose lowering technique was utilized adhering to the principles of ALARA. MIP reconstructed images were created and reviewed. COMPARISON: No relevant prior studies available. FINDINGS: Pulmonary arteries: Unremarkable. No pulmonary embolism. Aorta: Atherosclerotic changes of the aorta. No thoracic aortic aneurysm. Lungs: Airspace consolidation in the LEFT lower lobe, concerning for round atelectasis versus pneumonia. Correlate clinically. Atelectasis at the lung bases. Pleural space: Small LEFT pleural effusion with multiple locules of air, which may represent early stages of a empyema. Correlate clinically. Heart: Mild cardiomegaly. No significant pericardial effusion. No evidence of RV dysfunction. Mediastinum: Calcified mediastinal and hilar lymph nodes, correlate for history of granulomatous disease. Bones/joints: Degenerative changes of the spine. No acute fracture. No dislocation. Soft tissues: Unremarkable. Lymph nodes: See above. Liver: Hepatic steatosis. IMPRESSION: 1. Airspace consolidation in the LEFT lower lobe, concerning for round atelectasis versus pneumonia. Correlate clinically. 2. Small LEFT pleural effusion with multiple locules of air, which may represent early stages of a empyema. Correlate clinically. 3. Hepatic steatosis. 4. Calcified mediastinal and hilar lymph nodes, correlate for history of granulomatous disease. Electronically signed by: Jagjit Tran MD 09/23/23 22:27 PM
[2023-09-23] MEDS: SODIUM CHLORIDE 0.9% 1,000 ML IV SCH (22:59)
--- NOTE | 2023-09-23 23:50 | History & Physical Report ---
Date of Service September 23, 2023 Assessment & Plan (1) Acute on chronic hypoxic respiratory failure: Plan: -Acute on chronic hypoxic respiratory failure following weeks of progressive symptoms in background of pulmonary sarcoidosis w/ resultant bronchiectasis -D-dimer elevation on admission but chest CT w/o PE -RSV+ on admission, CT with findings of LLL consolidation concerning for possible pneumonia -Likely viral infection triggering bronchiectasis exacerbation leading to AHRF -Pt currently stable respiratory status on 3L NC O2, hemodynamically stable, afebrile -Obtain sputum culture + AFB smear -Treatment plan -Antibiotics to be initiated by ER for possible PNA after discussion with elevator repairer apprentice- will continue -Duoneb q4 -Solumedrol 40 mg IV BID -Budesonide -Mucinex BID -Flutter valve -Supplemental O2 as needed to maintain saturations at baseline 2L NC -Pulmonology consulted (2) Respiratory syncytial virus (RSV): Plan: -Supportive care as above -Droplet precautions (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: Plan: -Continue maintenance inhalers- Brovana, added Incruse -Other management as above (4) Bronchiectasis: Plan: -See above management -Likely acute exacerbation by RSV infection (5) Sarcoidosis: Plan: -Noted history of such -Covering with steroids as above if exacerbation potentially present (6) Atrial fibrillation: Plan: -Currently NSR, rate-controlled -Does not appear to be on anticoagulation despite CHADSVASC 2+ -Telemetry monitoring (7) Chronic reflux esophagitis: Plan: -Continue omeprazoe (8) Hyperlipidemia: Plan: -Continue atorvastatin (9) Hypertension: Plan: -BP stable -Continue irbesartan (10) Anemia: Plan: -Hgb 12.9 on admission -Likely chronic disease -No bleeding suspected at present -Monitor CBC Plan FENGI: NPO for potential bronchoscopy in AM Code status: DNI DVT prophylaxis: SCDs, holding aspirin Isolation: RSV/droplet Unit: Medical/surgical with telemetry Disposition planning: Anticipate home History of Present Illness Chief Complaint: Dyspnea Primary Care Provider: Steven Spring Pt is 73 yo M with PMH pulmonary sarcoidosis via biopsy confirmation, bronchiectasis, mixed obstructive/restrictive lung disease, chronic hypoxic respiratory failure on 2L O2 NC at all times, paroxysmal AF, GERD, HTN, HLD presenting with dyspnea. Pt reports ongoing dyspnea and productive cough since mid 08/2023. He did go to [facility] around 08/30 and was discharged with azithromycin, prednisone and bronchodilators though this did not help his symptoms. His symptoms worsened and evolved to include nasal and chest congestion. He did see elevator repairer apprentice on 09/09 and was diagnosed with bronchiectasis exacerbation- discharged on ciprofloxacin, Breo Ellipta discontinued and started on nebulized Perforomist and budenoside, Incruse added. Pt has been doing home nebulizer treatments regularly. Reports staying on 2L NC baseline oxygen requirement except turning up to 3L with exertion, denies fevers or chills. He has been more sedentary lately due to this shortness of breath. Pt arrived to ER hemodynamically stable. Initial evaluation significant for Hgb 12.9, D-dimer 3820, BNP 11, RSV positive. Negative procalcitonin. Chest CT demonstrating LLL consolidation, small L pleural effusion w/ air locules concerning for possible empyema. ER interventions include albuterol nebulizer x2, NSS 1L mIVF. At present, pt reports continued dyspnea but no new complaits. Allergies Allergy/AdvReac Type Severity Reaction Status Date / Time cefuroxime Allergy Unknown unknown Verified 09/23/23 21:51 formoterol [From Perforomist] Allergy Unknown Unknown Verified 09/23/23 21:51 minocycline Allergy Unknown unknown Verified 09/23/23 21:51 tetracycline Allergy Unknown Unknown Verified 09/23/23 21:51 duloxetine [From Cymbalta] AdvReac Intermediate HEADACHES Verified 09/23/23 21:51 voriconazole AdvReac Intermediate hallucinati Verified 09/23/23 21:51 ons Home Medications Medication Instructions Recorded Confirmed Type Oxygen Home #1 ea 08/07/19 09/03/23 History aspirin 81 mg tablet,delayed 81 mg PO DAILY 08/07/19 09/23/23 History release (Adult Low Dose Aspirin) irbesartan 75 mg tablet (Avapro) 75 mg PO DAILY 08/07/19 09/23/23 History atorvastatin 20 mg tablet 20 mg PO DAILY 01/26/20 09/23/23 History multivitamin 1 tab PO DAILY 01/26/20 09/23/23 History codeine 10 mg-guaifenesin 100 mg/5 5 ml PO Q6H PRN cough #236 mL 02/03/21 12/11/23 Rx mL oral liquid valacyclovir 1 gram tablet 1,000 mg PO Q8H PRN Shingles #21 03/14/21 09/23/23 Rx (Valtrex) tabs omeprazole 20 mg capsule,delayed 20 mg PO BID #180 caps 07/17/21 09/23/23 Rx release Flutter Valve #1 ea 01/15/23 09/03/23 Rx Ventolin HFA 90 mcg/actuation 2 puff inhalation Q4H PRN 07/22/23 09/23/23 Rx aerosol inhaler (albuterol sulfate) shortness of breath or wheezing #6 Inhalers arformoterol 15 mcg/2 mL solution 15 mcg (2 mL) inhalation DAILY 09/09/23 09/23/23 Rx for nebulization (Brovana) #120 mL budesonide 0.5 mg/2 mL suspension 0.5 mg (2 mL) inhalation BID #60 mL 09/09/23 09/23/23 Rx for nebulization guaifenesin 1,200 mg tablet, 1,200 mg PO BID #60 tabs 09/09/23 09/23/23 Rx extended release 12 hr (Mucinex) albuterol sulfate 2.5 mg/3 mL 2.5 mg inhalation Q4H PRN 09/23/23 09/23/23 History (0.083 %) solution for nebulization Shortness Of Breath Or Wheezing furosemide 40 mg tablet 40 mg PO DAILY 09/23/23 09/23/23 History prednisone 10 mg tablet 10 mg PO DAILY 09/23/23 09/23/23 History Past Med/Surg History Medical History (Updated 09/24/23 @ 00:30 by Fidel Holloway MD) Sarcoidosis Hypoxia Acute bronchitis Mixed restrictive and obstructive lung disease Surgical History H/O cardiac catheterization Hx of biopsy Family History Other Breast cancer Hypertension Lung cancer Stroke Social History Smoking Status: Never smoker Hx Alcohol Use: No Hx Substance Use: No marital status: Feels Safe at Home: Yes Review of Systems Review of Systems: Per HPI/Subjective Physical Exam Physical Exam: General: tired-appearing, no acute distress HEENT: PERRL, EOMI, conjunctivae clear without injection, anicteric sclerae, moist mucous membranes, clear oropharynx without exudate or erythema Neck: supple, trachea midline, no thyromegaly, no JVD, no cervical lymphadenopathy CV: RRR, normal S1 and S2, no murmurs Resp: Diffusely coarse breath sounds of all lung cunningham with bibasilar crackles, diminished inspiratory effort and expiratory wheeze noted. Conversational dyspnea Abd: Soft, nontender, nondistended, no guarding or rebound, no hep atosplenomegaly MSK: Normal bulk of all four extremities Neuro: AOx3, no focal motor or sensory deficits Skin: no rashes or lesions, warm and dry Ext: no LE peripheral edema or erythema, capillary refill <2s in all four extremities, 2+ LE peripheral pulses b/l Results & Data Results & Data Vital Signs (Past 12 Hours) Vital Signs Temp Pulse Pulse Resp BP BP Pulse Ox 09/23/23 23:00 128/58 L 96 09/23/23 22:30 130/66 93 09/23/23 22:03 94 09/23/23 21:30 24 145/71 H 94 09/23/23 21:00 99 H 28 H 126/62 92 09/23/23 20:50 92 H 20 144/66 H 96 09/23/23 20:49 96 09/23/23 20:46 94 H 21 144/66 H 96 09/23/23 20:45 90 09/23/23 19:43 95 H 94 09/23/23 19:25 36.5 C 98 H 18 162/69 H 91 O2 Del Method O2 Flow Rate 09/23/23 23:00 Nasal Cannula 3 09/23/23 22:30 Nasal Cannula 2 09/23/23 22:03 Nasal Cannula 2 09/23/23 21:30 Nasal Cannula 2 09/23/23 21:00 Nasal Cannula 2 09/23/23 20:50 Nasal Cannula 2 09/23/23 20:49 Nasal Cannula 2 09/23/23 20:46 Nasal Cannula 2 09/23/23 20:45 09/23/23 19:43 Nasal Cannula 2 09/23/23 19:25 Nasal Cannula 2 Supervising Physician Co-Signing Physician Notes I have personally seen, evaluated and examined the patient. I have also personally discussed the management of the patient with the resident physicain and I agree with the exam findings documented in the history and physical examination and the documented assessment and plan unless otherwise stated below. Brief Exam: HEENT: Normocephalic atraumatic pupils are equal round and reactive to light bilaterally. No scleral icterus no conjunctival injection external auditory canals are patent septum is in the midline nose is without discharge oral mucosa is pink and moist without lesion. NECK: Supple no rigidity no lymphadenopathy no thyromegaly no carotid bruits no JVD no masses. He is intermittently using accessory muscles of respiration especially with conversation. HEART: Regular rate and rhythm I do not appreciate any ectopy or rub. No murmur -however exam is somewhat limited due to his significant adventitious respiratory sounds. LUNGS: Moderately coarse bilaterally with expiratory wheezing and rhonchi. ABDOMEN: Soft nontender, no rebound, no peritoneal signs, positive bowel sounds, no appreciable organomegaly. EXTREMITIES: Intact, no peripheral cyanosis, clubbing or edema -SARAH hose noted to be applied. Strength is 5 out of 5 in extremities x4, no pathological reflexes. NEUROGLOICAL: Cranial nerves II through XII are grossly intact with no focal deficit elicited upon examination. No tremor. Assessment and plan as above. broad-spectrum antibiotic therapy in the form of meropenem given the failed outpatient antibiotic therapy as well as the patient's multiple antibiotic drug allergies - ER discussed esme Bahena and Pharm. Await further input from mikaela and rebecca in AM. Pt is a DNI - I discussed esme duran presonally. Please refer to orders for further planing Resident Activity Tracking Resident Involvement: Resident Care Provided Care Provided: Adult Hospital Medicine
[2023-09-24] MEDS ORDERED: MEROPENEM 500 MG in SYRINGE 0 ML IV STA (00:01)
--- NOTE | 2023-09-24 01:06 | Billing Data ---
Date of Service September 24, 2023 Coding Level of Care Code 72550 INT INP/OBS CARE
[2023-09-24] MEDS ORDERED: NON-FORMULARY MEDICATION (Flutter Valve device) SCH (02:59)
[2023-09-24] MEDS: ALBUT/IPRATROP 3MG/0.5MG NEB 3 ML VIAL NEB SCH ×5 (03:10→20:13)
[2023-09-24] MEDS: ACETAMINOPHEN 325 MG TAB PO PRN ×2 (03:25→21:34)
[2023-09-24] MEDS ORDERED: ACETAMINOPHEN 325 MG TAB ONE (03:25)
[2023-09-24 04:51] LABS: Hematocrit (blood only) 37.2 % (42.0-52.0); Hemoglobin 11.7 g/dl (14.0-18.0); Mean Corpuscular Hemoglobin 26.8 pg (25.0-34.0); Mean Corpuscular Hgb Conc 31.5 g/dL (32.0-36.0); Mean Corpuscular Volume 85.1 fL (80.0-100.0); Mean Platelet Volume 8.6 fL (9.4-12.4); Platelet Count 118 K/uL (130-400); RDW Coefficient of Variation 14.8 % (11.5-14.5); RDW Standard Deviation 45.9 fL (36.4-46.3); Red Blood Count 4.37 M/uL (4.70-6.10); White Blood Count 4.64 K/ul (4.8-10.8)
[2023-09-24 05:04] LABS: Calcium 8.1 mg/dl (8.6-10.3); Creatinine Clr Calc Pharmacy 87.1 ml/min; Est GFR (African American) 97.2 ml/min; Est GFR (Non-African American) 83.8 ml/min; Magnesium 2.1 mg/dl (1.7-2.4); Potassium 3.6 mmol/L (3.5-5.1)
[2023-09-24] MEDS: guaiFENesin/DEXTROM SYRUP 200MG/20MG 10ML UDC PO PRN (05:53)
[2023-09-24] MEDS: MEROPENEM 500 MG in SYRINGE 0 ML IV SCH ×4 (05:54→23:52)
[2023-09-24] MEDS: SODIUM CHLORIDE 0.9% 1,000 ML IV SCH ×3 (05:54→21:37)
[2023-09-24] MEDS: BUDESONIDE 0.5 MG/2 ML VIAL (PULMICORT) INH SCH ×2 (06:58→20:14)
[2023-09-24] MEDS: FORMOTEROL 20 MCG/2 ML VIAL INH SCH (06:58)
--- NOTE | 2023-09-24 07:30 | XRay Report ---
XR chest 1V not portable HISTORY: 73 years-old Male Chest pain, nonspecific acute chest pain COMPARISON: CTA chest of same day and also 08/31/2023. TECHNIQUE: PA view of the chest FINDINGS: Cardiac silhouette is enlarged. Small left-sided hydropneumothorax. Chronic right lung volume loss wi th mixed interstitial and alveolar opacities and bronchiectasis. Unchanged left basilar consolidation . Chronic mediastinal and hilar calcifications with rightward midline shift. No overt pulmonary edema . IMPRESSION: 1. Small left basilar hydropneumothorax. The size of the left pleural effusion is unchanged from 08/14, however the small locules of air are new from prior and may be secondary to infection or inst rumentation. 2. Chronic right lung volume loss and fibrosis. 3. Unchanged left basilar consolidation suggestive of atelectasis with scarring. ACT 112: Negative or not required by law. The above report was generated using voice recognition software. It may contain grammatical, syntax o r spelling errors. Electronically signed by: Shay Mcdonald M.D. 09/24/2023 7:28 AM
[2023-09-24] MEDS ORDERED: guaiFENesin 600 MG TABCR PO SCH (09:00)
--- NOTE | 2023-09-24 09:14 | Electrocardiogram Report ---
Test Reason : Blood Pressure : / mmHG Vent. Rate : 092 BPM Atrial Rate : 092 BPM P-R Int : 170 ms QRS Dur : 092 ms QT Int : 348 ms P-R-T Axes : 031 -02 090 degrees QTc Int : 430 ms Normal sinus rhythm Chronic T-wave inversion in Lateral leads Abnormal ECG When compared with ECG of 29-NOV-2013 13:42, T wave inversion less evident in Anterolateral leads Confirmed by Matias Chino ([id number]) on 09/24/2023 9:13:32 AM Referred By: REFERRED SELF Confirmed By:Matias Chino
[2023-09-24] MEDS ORDERED: LIDOCAINE 1% LOCAL 20 ML VIAL ONE (09:44)
--- NOTE | 2023-09-24 10:35 | XRay Report ---
XR chest 1V portable CLINICAL HISTORY: Chest tube placement. COMPARISON STUDY: Chest radiograph and chest CT September 23, 2023. FINDINGS: Interval placement of a left basilar pleural catheter is noted. Left pleural fluid has decr eased in amount. Small amount of pleural gas is redemonstrated. This represents a small left hydropne umothorax, decreased in size. Chronic changes within the right upper lobe with fibrosis are noted. Le ft basilar opacity persists. Cardiomediastinal silhouette is stable. No apical pneumothorax is presen t. There are calcified mediastinal and bilateral hilar lymph nodes as well as calcified granulomas wi thin the lungs. IMPRESSION: 1. Interval placement of a left basilar pleural catheter. Decrease in size of a small left hydropneum othorax. 2. Persistent left basilar opacity. 3. Chronic changes within the right lung with right upper lobe fibrosis. ACT 112: Negative or not required by law. Electronically signed by: Shakeel Keen M.D. 09/24/2023 10:34 AM
--- NOTE | 2023-09-24 10:50 | Pulmonary Consultation ---
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 He has been chronically on prednisone as tapering has resulted in patient feeling that his breathing is worsening despite no evidence of his sarcoid reactivating. He is admitted now with infectious symptoms after having completed a course of ciprofloxacin and CT scan shows pleural effusion on the left with gas pockets which is new compared to a CT scan from a month ago. Recommendations: 1. Parapneumonic effusion/empyema: Sampling of the pleural fluid is recommended. The patient will undergo ultrasound-guided 14 Malawian pigtail catheter placement. Will send fluid for microbiologic and cytologic analysis. May consider mist 2 protocol with serial chest x-rays. I offered the patient surgery however he is not interested in surgical intervention at this point time so we will see how we do with a catheter-based approach. It appears reasonable to continue meropenem for now but may be able to de-escalate to Unasyn depending on culture data. 2. Fibrotic lung disease: The patient has significant bronchiectasis. Unclear if this represents an exacerbation or not. Continue pulmonary toilet with nebulizers, bronchodilators, and Mucinex. He appears to be expectorating reasonably well so we will hold off on other mucolytic therapies. No indication for steroids above the patient's baseline dose of 10 mg of prednisone a day 3. Dyspnea: Will check lactate as well as blood gas to see if the patient has hypercarbia or acidosis contributing. Given his limited pulmonary reserve, he may have difficulty compensating for a metabolic process. His obesity is likely contributing as well as is his deconditioning. 4. Hypoxemia: Continue supplemental oxygen titrated to keep saturations at or above 90% 5. The patient will require aggressive PT and OT once his shortness of breath improves. Patient's overall prognosis is guarded given his advanced fibrotic lung disease. Will see how he responds to the above interventions History of Present Illness Attending Physician: Emmanuel Shin, PhD, DO History of Present Illness Asked by hospitalist to assist in evaluation management of this patient with increasing shortness of breath. History is obtained from discussion with the patient as well as review the electronic medical record. Patient is a 73-year-old male who is known to me from the outpatient pulmonary clinic. 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 He was recently seen in the clinic and had signs and symptoms concerning for an exacerbation of bronchiectasis and was placed on a 14-day course of ciprofloxacin. His shortness of breath persisted and he was advised to seek care in the emergency room. He had a chest x-ray which demonstrated increasing opacity at the bilateral lung bases with some blunting of the costophrenic angle superimposed on stable fibrotic changes. CT of the chest showed a pleural effusion on the left with pleural gas concerning for parapneumonic effusion/empyema. He was initiated on antibiotics. His viral PCR was positive for RSV The patient states that last night he had rigors and chills. He felt febrile. He is having some chest pain on the left side. He denies any nausea or vomiting. No lower extremity extremity edema. He is not had any wheezing. The patient is intermittently been treated with steroids but these have not been particularly effective in improving his breathing Allergies Allergy/AdvReac Type Severity Reaction Status Date / Time cefuroxime Allergy Unknown unknown Verified 09/23/23 21:51 formoterol [From Perforomist] Allergy Unknown Unknown Verified 09/23/23 21:51 minocycline Allergy Unknown unknown Verified 09/23/23 21:51 tetracycline Allergy Unknown Unknown Verified 09/23/23 21:51 duloxetine [From Cymbalta] AdvReac Intermediate HEADACHES Verified 09/23/23 21:51 voriconazole AdvReac Intermediate hallucinati Verified 09/23/23 21:51 ons Home Medications Medication Instructions Recorded Confirmed Type Oxygen Home #1 ea 08/07/19 09/03/23 History aspirin 81 mg tablet,delayed 81 mg PO DAILY 08/07/19 09/23/23 History release (Adult Low Dose Aspirin) irbesartan 75 mg tablet (Avapro) 75 mg PO DAILY 08/07/19 09/23/23 History atorvastatin 20 mg tablet 20 mg PO DAILY 01/26/20 09/23/23 History multivitamin 1 tab PO DAILY 01/26/20 09/23/23 History codeine 10 mg-guaifenesin 100 mg/5 5 ml PO Q6H PRN cough #236 mL 11/16/20 09/23/23 Rx mL oral liquid valacyclovir 1 gram tablet 1,000 mg PO Q8H PRN Shingles #21 03/14/21 09/23/23 Rx (Valtrex) tabs omeprazole 20 mg capsule,delayed 20 mg PO BID #180 caps 07/17/21 09/23/23 Rx release Flutter Valve #1 ea 01/15/23 09/03/23 Rx Ventolin HFA 90 mcg/actuation 2 puff inhalation Q4H PRN 07/22/23 09/23/23 Rx aerosol inhaler (albuterol sulfate) shortness of breath or wheezing #6 Inhalers arformoterol 15 mcg/2 mL solution 15 mcg (2 mL) inhalation DAILY 09/09/23 09/23/23 Rx for nebulization (Brovana) #120 mL budesonide 0.5 mg/2 mL suspension 0.5 mg (2 mL) inhalation BID #60 mL 09/09/23 09/23/23 Rx for nebulization guaifenesin 1,200 mg tablet, 1,200 mg PO BID #60 tabs 09/09/23 09/23/23 Rx extended release 12 hr (Mucinex) albuterol sulfate 2.5 mg/3 mL 2.5 mg inhalation Q4H PRN 09/23/23 09/23/23 History (0.083 %) solution for nebulization Shortness Of Breath Or Wheezing furosemide 40 mg tablet 40 mg PO DAILY 09/23/23 09/23/23 History prednisone 10 mg tablet 10 mg PO DAILY 09/23/23 09/23/23 History Patient History Medical History Sarcoidosis Hypoxia Acute bronchitis Mixed restrictive and obstructive lung disease Surgical History H/O cardiac catheterization Hx of biopsy Family History Other Breast cancer Hypertension Lung cancer Stroke Social History Smoking Status: Never smoker Hx Alcohol Use: No Hx Substance Use: No Preferred Language: Mongolian Communication Ability: Effective Firearms Specialist Required: No Beliefs That Will Affect Care: None marital status: Current Living Situation: Spouse Other Information That Helps Us Care for You: No Feels Safe at Home: Yes Safety Concerns: Feels Safe At This Time Assistive Devices: Glasses and Hearing Aid - Bilateral Review of Systems Review of Systems: Please refer to admission H&P for full details. No additions or deletions Physical Exam Constitutional: WD/WN, vitals as above Slightly cushingoid Neck: trachea midline, no thyromegaly Respiratory: no respiratory distress, no labored breathing and not tachypneic Auscultation: + crackles; no wheezes Cardiovascular: Rate/Rhythm: regular rate Heart Sounds: normal S1, normal S2 and + murmur Extremities: + edema Gastrointestinal (Abdomen): normal bowel sounds, soft, nontender, no hepatosplenomegaly Musculoskeletal: Extremities: extremities normal to inspection Skin: no rashes, warm and dry Neurologic: Nonfocal exam Lymphatic: no cervical lymphadenopathy Results & Data Results & Data Vital Signs (Past 12 Hours) Vital Signs Temp Pulse Pulse Resp BP Pulse Ox Pulse Ox 09/24/23 07:05 87 09/24/23 06:59 78 20 96 09/24/23 06:00 87 24 94 09/24/23 05:30 95 09/24/23 05:00 94 09/24/23 04:30 96 H 22 95 09/24/23 04:17 37 C 09/24/23 04:15 103 H 17 92 09/24/23 04:15 150/77 H 09/24/23 04:15 150/77 H 09/24/23 04:00 93 H 22 96 09/24/23 03:30 105 H 24 97 09/24/23 03:27 160/84 H 09/24/23 03:27 97 H 24 96 09/24/23 03:22 104 H 29 H 92 09/24/23 03:00 94 H 37 H 97 09/24/23 02:59 37.4 C 09/24/23 02:59 83 L 09/24/23 02:30 84 19 97 09/24/23 02:00 88 20 96 09/24/23 01:30 89 25 H 97 09/24/23 01:10 96 H 23 96 09/24/23 01:10 150/64 H 09/24/23 01:00 107 H 14 93 09/24/23 00:30 98 H 23 98 09/24/23 00:00 96 H 23 96 09/23/23 23:30 96 H 16 142/76 H 99 09/23/23 23:00 128/58 L 96 O2 Del Method O2 Del Method O2 Flow Rate O2 Flow Rate 09/24/23 07:05 09/24/23 06:59 Nasal Cannula 4 09/24/23 06:00 4 09/24/23 05:30 4 09/24/23 05:00 4 09/24/23 04:30 Nasal Cannula 4 09/24/23 04:17 09/24/23 04:15 09/24/23 04:15 09/24/23 04:15 09/24/23 04:00 09/24/23 03:30 09/24/23 03:27 09/24/23 03:27 09/24/23 03:22 09/24/23 03:00 09/24/23 02:59 09/24/23 02:59 Nasal Cannula 4 09/24/23 02:30 09/24/23 02:00 09/24/23 01:30 09/24/23 01:10 09/24/23 01:10 09/24/23 01:00 09/24/23 00:30 09/24/23 00:00 09/23/23 23:30 09/23/23 23:00 Nasal Cannula 3 Diagnostic Findings Limited thoracic ultrasound was performed in the ER demonstrating a complex septated left-sided effusion with some compressive atelectasis. No significant effusion on the right Critical Care Results & Data Vital Signs (Past 12 Hours) Vital Signs Temp Pulse Pulse Resp BP Pulse Ox Pulse Ox 09/24/23 07:05 87 09/24/23 06:59 78 20 96 09/24/23 06:00 87 24 94 09/24/23 05:30 95 09/24/23 05:00 94 09/24/23 04:30 96 H 22 95 09/24/23 04:17 37 C 09/24/23 04:15 103 H 17 92 09/24/23 04:15 150/77 H 09/24/23 04:15 150/77 H 09/24/23 04:00 93 H 22 96 09/24/23 03:30 105 H 24 97 09/24/23 03:27 160/84 H 09/24/23 03:27 97 H 24 96 09/24/23 03:22 104 H 29 H 92 09/24/23 03:00 94 H 37 H 97 09/24/23 02:59 37.4 C 09/24/23 02:59 83 L 09/24/23 02:30 84 19 97 09/24/23 02:00 88 20 96 09/24/23 01:30 89 25 H 97 09/24/23 01:10 96 H 23 96 09/24/23 01:10 150/64 H 09/24/23 01:00 107 H 14 93 09/24/23 00:30 98 H 23 98 09/24/23 00:00 96 H 23 96 09/23/23 23:30 96 H 16 142/76 H 99 09/23/23 23:00 128/58 L 96 O2 Del Method O2 Del Method O2 Flow Rate O2 Flow Rate 09/24/23 07:05 09/24/23 06:59 Nasal Cannula 4 09/24/23 06:00 4 09/24/23 05:30 4 09/24/23 05:00 4 09/24/23 04:30 Nasal Cannula 4 09/24/23 04:17 09/24/23 04:15 09/24/23 04:15 09/24/23 04:15 09/24/23 04:00 09/24/23 03:30 09/24/23 03:27 09/24/23 03:27 09/24/23 03:22 09/24/23 03:00 09/24/23 02:59 09/24/23 02:59 Nasal Cannula 4 09/24/23 02:30 09/24/23 02:00 09/24/23 01:30 09/24/23 01:10 09/24/23 01:10 09/24/23 01:00 09/24/23 00:30 09/24/23 00:00 09/23/23 23:30 09/23/23 23:00 Nasal Cannula 3 Lab & Micro Results (Past 24 Hours) RBC 4.37 M/uL (4.70-6.10) L 09/24/23 WBC 4.64 K/ul (4.8-10.8) L 09/24/23 Hgb 11.7 g/dl (14.0-18.0) L 09/24/23 Hct 37.2 % (42.0-52.0) L 09/24/23 MCV 85.1 fL (80.0-100.0) 09/24/23 MCH 26.8 pg (25.0-34.0) 09/24/23 MCHC 31.5 g/dL (32.0-36.0) L 09/24/23 RDW Standard Deviation 45.9 fL (36.4-46.3) 09/24/23 RDW Coefficient of Variation 14.8 % (11.5-14.5) H 09/24/23 Plt Count 118 K/uL (130-400) L 09/24/23 MPV 8.6 fL (9.4-12.4) L 09/24/23 Neutrophils (%) (Auto) 68.7 % 09/23/23 Lymphocytes (%) (Auto) 15.2 % 09/23/23 Monocytes # (Auto) 0.76 K/uL (0.11-0.59) H 09/23/23 Eosinophils # (Auto) 0.06 K/uL (0.00-0.50) 09/23/23 Immature Granulocyte % (Auto) 0.7 % 09/23/23 Neutrophils # (Auto) 3.75 K/uL (1.40-6.50) 09/23/23 Lymphocytes # (Auto) 0.83 K/uL (1.20-3.40) L 09/23/23 Monocytes # (Auto) 0.76 K/uL (0.11-0.59) H 09/23/23 Eosinophils # (Auto) 0.06 K/uL (0.00-0.50) 09/23/23 Basophils # (Auto) 0.02 K/uL (0.00-0.20) 09/23/23 Immature Granulocyte # (Auto) 0.04 K/uL (0.01-0.20) 3 Na 135 mmol/L (136-145) L 09/24/23 K 3.6 mmol/L (3.5-5.1) 09/24/23 Cl 97 mmol/L (98-107) L 09/24/23 CO2 31 mmol/L (21-32) 09/24/23 Anion Gap 7 (3-11) 09/24/23 BUN 18 mg/dl (6-23) 09/24/23 Creatinine 0.90 mg/dl (0.6-1.4) 09/24/23 Estimated GFR ( Amer) 97.2 ml/min 09/24/23 Estimated GFR (Non-Af Amer) 83.8 ml/min 09/24/23 BUN/Creatinine Ratio 20.0 (10-20) 09/24/23 Glu 122 mg/dl (70-99(Fasting)) H 09/24/23 Ca 8.1 mg/dl (8.6-10.3) L 09/24/23 Total Bilirubin 0.5 mg/dl (0.2-1.0) 09/23/23 AST 23 U/L (13-39) 09/23/23 ALT 24 U/L (7-52) 09/23/23 Alkaline Phosphatase 104 U/L (34-104) 09/23/23 TP 6.9 gm/dl (6.0-8.3) 09/23/23 Albumin 4.2 gm/dl (3.4-5.0) 09/23/23 Globulin 2.7 gm/dl (2.5-4.0) 09/23/23 Albumin/Globulin Ratio 1.6 (0.9-2) 09/23/23 Mg 2.1 mg/dl (1.7-2.4) 09/24/23 04:30 Calcium Level 8.1 mg/dl (8.6-10.3) L 09/24/23 04:30 Prothromb Time International Ratio 1.0 (0.9-1.1) 09/23/23 19:4 5 Microbiology 09/23/23 23:34 Gram Stain - Final Sputum, Expectorated Sputum Culture - Final Diagnostic Findings (Past 24 Hours) Chest X-Ray 09/23/23 19:29 XR chest 1V not portable HISTORY: 73 years-old Male Chest pain, nonspecific acute chest pain COMPARISON: CTA chest of same day and also 08/31/2023. TECHNIQUE: PA view of the chest FINDINGS: Cardiac silhouette is enlarged. Small left-sided hydropneumothorax. Chronic right lung volume loss with mixed interstitial and alveolar opacities and bronchiectasis. Unchanged left basilar consolidation. Chronic mediastinal and hilar calcifications with rightward midline shift. No overt pulmonary edema. IMPRESSION: 1. Small left basilar hydropneumothorax. The size of the left pleural effusion is unchanged from 08/31/2023, however the small locules of air are new from prior and may be secondary to infection or instrumentation. 2. Chronic right lung volume loss and fibrosis. 3. Unchanged left basilar consolidation suggestive of atelectasis with scarring. ACT 112: Negative or not required by law. The above report was generated using voice recognition software. It may contain grammatical, syntax or spelling errors. Electronically signed by: Shay Mcdonald M.D. 09/24/2023 7:28 AM Chest CTA 09/23/23 21:13 Exam(s): CTA CHEST IV Amt: 117 ml optiray 320 EXAM: CT Angiography Chest With Intravenous Contrast CLINICAL HISTORY: Reason for exam: PE. TECHNIQUE: Axial computed tomographic angiography images of the chest with intravenous contrast. CTDI is 27.93 mGy and DLP is 985.58 mGy-cm. Automated exposure control was utilized for the study. A dose lowering technique was utilized adhering to the principles of ALARA. MIP reconstructed images were created and reviewed. COMPARISON: No relevant prior studies available. FINDINGS: Pulmonary arteries: Unremarkable. No pulmonary embolism. Aorta: Atherosclerotic changes of the aorta. No thoracic aortic aneurysm. Lungs: Airspace consolidation in the LEFT lower lobe, concerning for round atelectasis versus pneumonia. Correlate clinically. Atelectasis at the lung bases. Pleural space: Small LEFT pleural effusion with multiple locules of air, which may represent early stages of a empyema. Correlate clinically. Heart: Mild cardiomegaly. No significant pericardial effusion. No evidence of RV dysfunction. Mediastinum: Calcified mediastinal and hilar lymph nodes, correlate for history of granulomatous disease. Bones/joints: Degenerative changes of the spine. No acute fracture. No dislocation. Soft tissues: Unremarkable. Lymph nodes: See above. Liver: Hepatic steatosis. IMPRESSION: 1. Airspace consolidation in the LEFT lower lobe, concerning for round atelectasis versus pneumonia. Correlate clinically. 2. Small LEFT pleural effusion with multiple locules of air, which may represent early stages of a empyema. Correlate clinically. 3. Hepatic steatosis. 4. Calcified mediastinal and hilar lymph nodes, correlate for history of granulomatous disease. Electronically signed by: Jagjit Tran MD 09/23/23 22:27 PM Chest X-Ray 09/24/23 10:07 XR chest 1V portable CLINICAL HISTORY: Chest tube placement. COMPARISON STUDY: Chest radiograph and chest CT September 23, 2023. FINDINGS: Interval placement of a left basilar pleural catheter is noted. Left pleural fluid has decreased in amount. Small amount of pleural gas is redemonstrated. This represents a small left hydropneumothorax, decreased in size. Chronic changes within the right upper lobe with fibrosis are noted. Left basilar opacity persists. Cardiomediastinal silhouette is stable. No apical pneumothorax is present. There are calcified mediastinal and bilateral hilar lymph nodes as well as calcified granulomas within the lungs. IMPRESSION: 1. Interval placement of a left basilar pleural catheter. Decrease in size of a small left hydropneumothorax. 2. Persistent left basilar opacity. 3. Chronic changes within the right lung with right upper lobe fibrosis. ACT 112: Negative or not required by law. Electronically signed by: Shakeel Keen M.D. 09/24/2023 10:34 AM I & O Totals 24 Hours 09/23/23 09/24/23 09/25/23 06:59 06:59 06:59 Intake Total 864.583 / 864.583 Output Total 310 / 310 Balance 554.583 / 554.583 Cumulative 09/23/23 19:19 thru 09/24/23 06:00 Intake Total 864.583 Output Total 310 Balance 554.583 RT Ventilator Mngmt (Last Documented) Ventilator Ordered Settings Respiratory Rate 20 09/24/23 06:59 Ventilator - PT Measurements Respiratory Rate 20 PG Care Time/CCT Total # of Minutes Spent Total Time Spent with Patient: Total time spent is greater than 50% in coordination of care (as documented) at patient's floor/unit and/or counseling patient: Coding Level of Care Code 63911 INT INP/OBS CARE 3/75MIN Diagnoses Parapneumonic effusion J18.9; J91.8 PNA (pneumonia) J18.9 Acute on chronic hypoxic respiratory failure J96.21 Acute dyspnea R06.00 Mixed restrictive and obstructive lung disease J43.9; J98.4 Bronchiectasis J47.9
[2023-09-24 10:55] LABS: Glucose Pleural Fluid 37 mg/dl; LDH Pleural Fluid 425 U/L; Total Protein Pleural Fluid < 3.0 gm/dl
--- NOTE | 2023-09-24 11:01 | Procedure Note ---
Procedure Note Date of Service September 24, 2023 Note Procedure: 14 Jamaican pigtail catheter placement left lung base Indication: Parapneumonic effusion Consent risk and benefits were discussed with the patient. He agreed. Written consent was verified prior to commencement of the procedure. Eyeglass Inspector Dr. Simpson Estimated blood loss: Less than 5 mL Anesthesia: 10 mL 1% lidocaine without epinephrine locally. Procedure: The patient been admitted with a parapneumonic effusion. CT scan showed gas in the pleural space which was new compared to a CT scan from about a month ago. Drainage was recommended. The patient was placed in a upright seated position. Ultrasound was performed to identify a pocket of pleural fluid on the left and a site appropriate for pigtail catheter placement was marked. The skin was prepped and draped in normal sterile fashion and a sterile field established. Using 1% lidocaine without epinephrine, the skin and subcutaneous tissues were anesthetized. The muscle and deeper soft tissues were anesthetized using a finder needle. Due to the patient's body habitus, were not able to aspirate fluid with the finder needle. On ultrasound his soft tissues measured about 4 cm. A small skin mitchel was made with a scalpel. An 18-gauge needle was then advanced on a similar line until I was able to aspirate serosanguineous fluid. The syringe was withdrawn leaving the needle in place. A wire was passed through the needle and then the needle was withdrawn leaving the wire in the pleural space. A 14 Jamaican dilator was then passed over the wire to dilate the skin and soft tissues. This passed with ease. The dilator was removed leaving the wire in place. A 14 Jamaican pigtail catheter was then loaded on a straightening catheter and advanced over the wire into the pleural space. The stiffening catheter and wire were removed leaving the pigtail catheter in place. The locking mechanism was secured. A three-way stopcock was attached. The tube was attached to suction with a trivial airleak on the Pleur-evac system. The skater catheter fixation system was attached to the chest wall and the catheter secured. Catheter was attached to suction at 20 cm of water. Post procedure chest x-ray is pending. The patient tolerated the procedure well. Coding CPT Codes Pulmonary/Thoracic - Pulmonary and Thoracic: 69206 Tube thoracostomy ([id number]) Pulmonary/Thoracic - Pulmonary and Thoracic: 76591 US, Chest, real time with imaging documentation ([id number]) Pulmonary/Thoracic - Pulmonary and Thoracic: 52927 Lyse chest fibrin initial day ([id number]) [facility] [place] Procedure Codes (Charges) Pulmonary/Thoracic Procedure 1: Pulmonary and Thoracic: 76214 Tube thoracostomy Procedure 2: Pulmonary and Thoracic: 15620 US, Chest, real time with imaging documentation Procedure 3: Pulmonary and Thoracic: 71612 Lyse chest fibrin initial day
[2023-09-24] MEDS: FUROSEMIDE 40 MG TAB PO SCH (11:24)
[2023-09-24] MEDS: LOSARTAN POTASSIUM 25 MG TAB PO SCH (11:24)
[2023-09-24] MEDS: ATORVASTATIN 20 MG TAB PO SCH (11:24)
[2023-09-24] MEDS: PANTOprazole 40 MG TAB PO SCH ×2 (11:24→21:35)
[2023-09-24] MEDS: UMECLIDINIUM BROMIDE 62.5MCG/BLISTER 7 PUFFS/INHALER INH SCH (11:25)
[2023-09-24 11:28] LABS: Base Excess ABG 6.7 mEq/L (-9-1.8); HCO3 ABG 32 mmol/L (19-24); Oxygen Saturation ABG 99.3 % (90-95); PCO2 ABG 47 mmHg (35-46); PO2 ABG 109 mmHg (80-95); pH ABG 7.44 (7.35-7.45)
[2023-09-24 11:29] LABS: Allen Test Pos (Pos)
--- NOTE | 2023-09-24 12:47 | Hospitalist Progress Note ---
Date of Service September 24, 2023 Assessment & Plan (1) Acute on chronic hypoxic respiratory failure: Plan: -Acute on chronic hypoxic respiratory failure following weeks of progressive symptoms in background of pulmonary sarcoidosis w/ resultant bronchiectasis -D-dimer elevation on admission, chest CT w/o PE -RSV+ on admission, CT with findings of LLL consolidation concerning for possible pneumonia -Pleural Catheter insertion 09/[address] Simpson -AFB smear/Cytology pending -Pulmonology consulted, appreciated recs -Continue Nebs, bronchodilators and Mucinex -Mucinex was d/c, Dr. Simpson aware, states to continue if pt noticed improvement, pt reports no sinus congestion. Will not restart at this time. -Continue prednisone 10mg daily (this is patient baseline) -Wean oxygen as able, baseline 2L. O2 goal >90% -Meropenem q6, may deescalate pending cultures -Obtain sputum culture -collected 09/23 but contaminated. 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 Cardiology reports 04/22/2023- notes that had episode 20 years ago and no recurrence since. -Telemetry monitoring (6) Chronic reflux esophagitis: Plan: -Home omeprazole, will use pantoprazole inpatient. (7) Hyperlipidemia: Plan: -Continue atorvastatin (8) Hypertension: Plan: -BP stable -Continue irbesartan (9) Anemia: Plan: -Hgb 12.9 on admission, now 11.7 -Likely chronic disease -No bleeding suspected at present -Monitor CBC Plan DVT prophylaxis: SCDs, holding aspirin Dispo: continued inpatient stay Admission and Anticipated Discharge Date Admission Date: September 23, 2023 Subjective Patient seen sitting up in bed. Reports that he does feel better after having the chest tube placed. Does not feel short of breath currently. Is on 2 L of oxygen at home, does report that he increases it to 3 L with activity. Unable to tell me how he feels compared to his baseline as he states most of his symptoms were when he was moving around, and instructed not to move around while chest tubes in place. His cough has decreased, and has now become more dry. Also reports that he felt fevers and chills overnight, and had some sweating, but this has resolved. Reports maintained appetite, States he has been trying to lose weight and has only been eating about 2 meals a day. Review of Systems Review of Systems: All systems reviewed & are unremarkable except as noted in Subjective Physical Exam Physical Exam: General: WN/WD, NAD, VS as above Resp: Inspiratory wheezes upper lobes, crackles in the bases. No accessory m uscle use. Able to speak in full sentences. Pleural catheter in place on the left. CV: RRR, no murmur, Abd: normal bowel sounds, non tender, no hepatosplenomegaly Extremities: Moves all extremities, 1+ edema Neuro: A&O x3, Results & Data Results & Data Vital Signs (Past 12 Hours) Vital Signs Temp Pulse Pulse Resp BP Pulse Ox Pulse Ox 09/24/23 12:01 88 25 H 96 09/24/23 12:01 170/83 H 09/24/23 12:00 88 22 154/70 H 93 09/24/23 11:29 85 22 95 09/24/23 11:29 151/72 H 09/24/23 11:29 83 20 93 09/24/23 11:00 88 20 96 09/24/23 10:06 91 H 20 95 09/24/23 10:06 165/76 H 09/24/23 10:00 92 H 19 09/24/23 09:00 84 20 96 09/24/23 08:00 141/68 H 09/24/23 08:00 141/68 H 09/24/23 08:00 79 21 93 09/24/23 07:05 87 09/24/23 07:00 83 18 96 09/24/23 06:59 78 20 96 09/24/23 06:00 87 24 94 09/24/23 05:30 95 09/24/23 05:00 94 09/24/23 04:30 96 H 22 95 09/24/23 04:17 37 C 09/24/23 04:15 103 H 17 92 09/24/23 04:15 150/77 H 09/24/23 04:15 150/77 H 09/24/23 04:00 93 H 22 96 09/24/23 03:30 105 H 24 97 09/24/23 03:27 160/84 H 09/24/23 03:27 97 H 24 96 09/24/23 03:22 104 H 29 H 92 09/24/23 03:00 94 H 37 H 97 09/24/23 02:59 37.4 C 09/24/23 02:59 83 L 09/24/23 02:30 84 19 97 09/24/23 02:00 88 20 96 09/24/23 01:30 89 25 H 97 09/24/23 01:10 96 H 23 96 09/24/23 01:10 150/64 H 09/24/23 01:00 107 H 14 93 O2 Del Method O2 Del Method O2 Flow Rate O2 Flow Rate 09/24/23 11:29 Nasal Cannula 4 09/24/23 06:59 Nasal Cannula 4 09/24/23 04:30 Nasal Cannula 4 09/24/23 02:59 Nasal Cannula 4 Laboratory Results CBC, chemistry, ABG reviewed PG Care Time/CCT Total # of Minutes Spent Total Time Spent with Patient: Total time spent is greater than 50% in coordination of care (as documented) at patient's floor/unit and/or counseling patient: Coding Level of Care Code 62892 SUB INP/OBS CARE 2/35MIN Diagnoses Acute on chronic hypoxic respiratory failure J96.21 Respiratory syncytial virus (RSV) B33.8 Mixed restrictive and obstructive lung disease J43.9; J98.4 Sarcoidosis D86.9 Atrial fibrillation I48.91 Chronic reflux esophagitis K21.0 Hyperlipidemia E78.5 Hypertension I10 Anemia D64.9
[2023-09-24 13:29] LABS: Appearance Pleural Fluid Bloody; Color Pleural Fluid Red; Lymphocytes, Fluid 94 %; Mono,Macrophage,Mesothelial 3 %; Neutrophils, Fluid 3 %; RBC Pleural Fluid Auto 232000 /uL; Source Pleural Fluid Left Lung; WBC Pleural Fluid Auto 271 /uL
[2023-09-24] MEDS: ALTEPLASE, RECOMBINANT 10 MG in SYRINGE 50 ML IPL SCH ×2 (13:44→23:52)
[2023-09-24] MEDS ORDERED: methylPREDNISolone 40 MG in SYRINGE 0 ML IV SCH (14:00)
[2023-09-24] MEDS: DORNASE ALFA 5 ML in SYRINGE 25 ML IPL SCH (14:59)
[2023-09-24] MEDS: MELATONIN 3 MG TAB PO PRN (22:18)
[2023-09-25] MEDS: ALBUT/IPRATROP 3MG/0.5MG NEB 3 ML VIAL NEB SCH ×7 (00:07→22:35)
[2023-09-25] MEDS: DORNASE ALFA 5 ML in SYRINGE 25 ML IPL SCH ×2 (01:46→13:43)
[2023-09-25] MEDS: SODIUM CHLORIDE 0.9% 1,000 ML IV SCH (05:42)
[2023-09-25] MEDS: MEROPENEM 500 MG in SYRINGE 0 ML IV SCH ×3 (05:45→17:46)
[2023-09-25 05:56] LABS: Hematocrit (blood only) 35.8 % (42.0-52.0); Hemoglobin 11.2 g/dl (14.0-18.0); Mean Corpuscular Hgb Conc 31.3 g/dL (32.0-36.0); Mean Corpuscular Volume 86.3 fL (80.0-100.0); Mean Platelet Volume 9.1 fL (9.4-12.4); Platelet Count 115 K/uL (130-400); RDW Coefficient of Variation 14.7 % (11.5-14.5); RDW Standard Deviation 46.8 fL (36.4-46.3); Red Blood Count 4.15 M/uL (4.70-6.10); White Blood Count 3.78 K/ul (4.8-10.8)
[2023-09-25 06:12] LABS: BUN Creatinine Ratio 19.1 (10-20); Calcium 8.2 mg/dl (8.6-10.3); Creatinine Clr Calc Pharmacy 83.4 ml/min; Est GFR (African American) 92.2 ml/min; Est GFR (Non-African American) 79.6 ml/min; Potassium 3.7 mmol/L (3.5-5.1)
--- NOTE | 2023-09-25 07:09 | XRay Report ---
XR chest 1V portable CLINICAL HISTORY: Chest tube ? MIST 2 protocol COMPARISON STUDY: Chest CT September 23, 2023. Chest radiograph September 24, 2023. FINDINGS: Left basilar pleural catheter is in place. A small left hydropneumothorax is similar to kvng or exam. Cardiomediastinal silhouette is stable. Chronic interstitial thickening within the right upp er lung is noted. Right midlung opacity may have slightly increased. Calcified mediastinal and hilar lymph nodes are incidentally noted. Left basilar opacity persists. IMPRESSION: 1. Left basilar pleural catheter in place. No significant change in a small left hydropneumothorax. 2. Persistent left basilar opacity. Possible slight increase in right midlung opacity. 3. Right upper lobe fibrosis. ACT 112: Negative or not required by law. Electronically signed by: Shakeel Keen M.D. 09/25/2023 7:08 AM
[2023-09-25] MEDS: FORMOTEROL 20 MCG/2 ML VIAL INH SCH (07:19)
[2023-09-25] MEDS: BUDESONIDE 0.5 MG/2 ML VIAL (PULMICORT) INH SCH ×2 (07:19→20:17)
--- NOTE | 2023-09-25 08:10 | Hospitalist Progress Note ---
Date of Service September 25, 2023 Assessment & Plan (1) Acute on chronic hypoxic respiratory failure: Plan: Acute on chronic hypoxic respiratory failure (On baseline 2L O2) following weeks of progressive symptoms in background of pulmonary sarcoidosis w/ resultant bronchiectasis. Completed 14 day course Ciprofloxacin recently RSV+ on admission D-dimer elevation on admission, Chest CTA NEGATIVE for PE -CT with findings of LLL consolidation concerning for possible pneumonia, small L pleural effusion w/ locules of air, ?early stages of empyema Pulmonology consulted. Was offered surgery however not interested in surgical intervention Suspected parapneumonic effusion/empyema s/p thoracentesis with Dr Simpson on 09/24. BLOODY DRAINAGE NOTED. MIST II protocol/daily CXR - CXR AM 09/25 w/ L basilar pleural catheter in place, no significant change in small L hydropneumothorax AFB/cytology pending/pathology pending pleural fluid with rare WBC, no organisms on preliminary -- monitor Continue nebs, daily prednisone (10mg at baseline, no increase per pulm) Trial BiPAP for tonight 07/18, outpatient sleep study pending (patient reports had one in past but has been many years) Pulmonary toilet, mucinex added back on. Sputum cx if able to produce Continues on Meropenem, may be able to de-escalate to Unasyn pending cx data -- per discussion w/ pulm will wait for pleural cx negative x 48 hours IVF DISCONTINUED, remains on lasix 40mg PO daily. Monitor for additional dosing Supplemental O2 to maintain sats (on baseline 2L O2) -- currently 98% on 2L (was on 3L) Possible dc Saturday? pending status (2) Respiratory syncytial virus (RSV): Plan: + testing on admission -- continue to maintain droplet precautions. 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 No hypotension at present, BP 163/68 (5) Atrial fibrillation: Plan: Currently NSR, rate-controlled Does not appear to be on anticoagulation despite CHADSVASC 2+. Cardiology reports 04/22/2023- notes that had episode 20 years ago and no recurrence since. Telemetry monitoring On ASA daily --? held w/ bloody tap. ?timing to resume (6) Chronic reflux esophagitis: Plan: On omeprazole at home -- pantoprazole/hospital formulary while inpatient No increased issues reported (7) Hyperlipidemia: Plan: Continue atorvastatin (8) Hypertension: Plan: BP stable Continue lasix, irbesartan/hospital equivalent (9) Anemia: Plan: Hgb 12.9 on admission, now 11.7 --> 11.2 Likely chronic, however suspect dilutional as had been on IVF @ 125cc/hr since admission, now discontinued Monitor for bleeding/CBC in AM Plan DVT prophylaxis: SCDs, holding aspirin given thoracentesis/catheter/drainage at present Continued inpatient stay, possible catheter removal tomorrow pending. F/u pleural cx/continue abx PT/OT eval ordered Admission and Anticipated Discharge Date Admission Date: September 23, 2023 Subjective eval this morning, doing well. saw lung doctor, mentioned about the catheter removal tomorrow/possible discharge on Saturday. On his 2L NC. Continuing abx for 48hr culture results, then will de-escalate if negative. +Cough but not getting any sputum up. Discussed resuming his mucinex. Sputum cup on balance truing inspector room if/when able to expectorate. Prior reports had sleep study many years ago/told didn't need. Per pulm, trial BiPAP 10/5 nightly w/ O2 3L bleed in for tonight/referral for outpatient sleep study pending trial. He does note he is a mouth breather, but family w/ nasal pillows. Will monitor. Prior thoracentesis many years ago with Dr Ugarte. [facility] and thinks all this started then. His also w/ cough/nasal drainage which is NEW symptoms for him and what told him something else was going on rather than bronchiectasis. Questions/concerns addressed at this time. Possible dc Saturday. Physical Exam 2 Physical Exam: General: WN/WD chronically ill appearing male, obese, sitting up in bed on the phone, NAD, + cough HEENT: head normocephalic, atraumatic, thick neck, trachea midline Resp: bilateral crackles/diminished in base R>L, on 2L NC, +cough, no tachypnea, able to talk in complete sentences catheter to alexandra, no air leak appreciated CV: RRR, no significant mrg, +1+ pedal edema (calves nontender, pulses palpable) GI: +BS, +obese, slight distension, NT : no mcghee MSK/Neuro: nonfocal, answering questions appropriately, strenght equal b/l Psych: AOx3, cooperative, talkative Results & Data Results & Data Vital Signs (Past 12 Hours) Vital Signs Temp Pulse Pulse Resp BP Pulse Ox O2 Del Method 09/25/23 07:19 87 18 98 Nasal Cannula 09/25/23 03:55 78 20 97 Nasal Cannula 09/25/23 03:13 36.7 C 77 18 133/55 L 98 Nasal Cannula 09/25/23 00:27 87 09/25/23 00:07 87 20 96 Nasal Cannula 09/24/23 23:16 36.6 C 85 18 143/62 H 97 Nasal Cannula 09/24/23 20:14 90 22 95 Nasal Cannula O2 Flow Rate 09/25/23 07:19 3 09/25/23 03:55 3 09/25/23 03:13 3 09/25/23 00:27 09/25/23 00:07 3 09/24/23 23:16 2 09/24/23 20:14 3 Laboratory Results 09/25/23 04:27 09/25/23 04:27 Diagnostic Findings Chest X-Ray 09/25/23 08:00 XR chest 1V portable CLINICAL HISTORY: Chest tube ? MIST 2 protocol COMPARISON STUDY: Chest CT September 23, 2023. Chest radiograph September 24, 2023. FINDINGS: Left basilar pleural catheter is in place. A small left hydropneumothorax is similar to prior exam. Cardiomediastinal silhouette is stable. Chronic interstitial thickening within the right upper lung is noted. Right midlung opacity may have slightly increased. Calcified mediastinal and hilar lymph nodes are incidentally noted. Left basilar opacity persists. IMPRESSION: 1. Left basilar pleural catheter in place. No significant change in a small left hydropneumothorax. 2. Persistent left basilar opacity. Possible slight increase in right midlung opacity. 3. Right upper lobe fibrosis. ACT 112: Negative or not required by law. Electronically signed by: Shakeel Keen M.D. 09/25/2023 7:08 AM PG Care Time/CCT Total # of Minutes Spent Total Time Spent with Patient: Total time spent is greater than 50% in coordination of care (as documented) at patient's floor/unit and/or counseling patient: Coding Level of Care Code 61380 SUB INP/OBS CARE 3/50MIN Diagnoses Acute on chronic hypoxic respiratory failure J96.21 Respiratory syncytial virus (RSV) B33.8 Mixed restrictive and obstructive lung disease J43.9; J98.4 Sarcoidosis D86.9 Atrial fibrillation I48.91 Chronic reflux esophagitis K21.0 Hyperlipidemia E78.5 Hypertension I10 Anemia D64.9
--- NOTE | 2023-09-25 08:39 | Pulmonology Progress Note ---
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 He has been chronically on prednisone as tapering has resulted in patient feeling that his breathing is worsening despite no evidence of his sarcoid reactivating. He is admitted now with infectious symptoms after having completed a course of ciprofloxacin and CT scan shows pleural effusion on the left with gas pockets which is new compared to a CT scan from a month ago. He is status post 14 Cymraes pigtail catheter placement and initiation of mist 2 protocol. Blood gas showed hypercarbic respiratory failure. Recommendations: 1. Parapneumonic effusion/empyema: Cultures pending. Chest x-ray shows trapped lung with partial hydropneumothorax. No output recorded from the chest tube although on my review it appears to be minimal. Will complete mist 2 protocol. Unclear if the lung will reexpand as the effusion was fairly chronic. 2. Fibrotic lung disease: The patient has significant bronchiectasis. Unclear if this represents an exacerbation or not. Continue pulmonary toilet with nebulizers, bronchodilators, and Mucinex. He appears to be expectorating reasonably well so we will hold off on other mucolytic therapies. No indication for steroids above the patient's baseline dose of 10 mg of prednisone a day 3. Hypercarbic respiratory failure: Secondary to the patient's underlying fibrotic lung disease. A placement a trial of BiPAP 10/5 tonight with oxygen bleed at 3 L/min and see how he does. He may need an outpatient polysomnography to qualify if this is beneficial. 4. Hypoxemia: Continue supplemental oxygen titrated to keep saturations at or above 90%. Continue diuresis currently receiving Lasix 40 mg daily. Discontinue IV fluids. 5. Initiate PT and OT evaluations. Weight loss recommended. Dietary consultation Patient's overall prognosis is guarded given his advanced fibrotic lung disease. Will see how he responds to the above interventions Admission and Anticipated Discharge Date Admission Date: September 23, 2023 Physical Exam 2 Constitutional: WD/WN, vitals as above Neck: trachea midline, no thyromegaly Respiratory: no respiratory distress, no labored breathing and not tachypneic Auscultation: + crackles; no wheezes Cardiovascular: Rate/Rhythm: regular rate Heart Sounds: normal S1, normal S2 and + murmur Extremities: + edema Gastrointestinal (Abdomen): normal bowel sounds, soft, nontender, no hepatosplenomegaly Musculoskeletal: Extremities: extremities normal to inspection Skin: no rashes, warm and dry Lymphatic: no cervical lymphadenopathy Results & Data Results & Data Vital Signs (Past 12 Hours) Vital Signs Temp Pulse Pulse Resp BP Pulse Ox O2 Del Method 09/25/23 07:19 87 18 98 Nasal Cannula 09/25/23 03:55 78 20 97 Nasal Cannula 09/25/23 03:13 36.7 C 77 18 133/55 L 98 Nasal Cannula 09/25/23 00:27 87 09/25/23 00:07 87 20 96 Nasal Cannula 09/24/23 23:16 36.6 C 85 18 143/62 H 97 Nasal Cannula O2 Flow Rate 09/25/23 07:19 3 09/25/23 03:55 3 09/25/23 03:13 3 09/25/23 00:27 09/25/23 00:07 3 09/24/23 23:16 2 Laboratory Results 09/25/23 04:27 09/25/23 04:27 Fluid studies: Cytology pending Gram stain showed rare white blood cells with no organisms, culture pending AFB stain and cultures pending Differential: 3% neutrophils, 94% lymphocytes, 3% mesothelial cells Total protein less than 3 LDH 425 \Glucose 37 Lactate normal at 1.7 09/24/23 11:13 ABG pH 7.44 ABG pCO2 47 H ABG pO2 109 H ABG HCO3 32 H ABG O2 Saturation 99.3 H ABG Base Excess 6.7 H PG Care Time/CCT Total # of Minutes Spent Total Time Spent with Patient: Total time spent is greater than 50% in coordination of care (as documented) at patient's floor/unit and/or counseling patient: Coding Level of Care Code 23360 SUB INP/OBS CARE 2/35MIN Diagnoses Parapneumonic effusion J18.9; J91.8 PNA (pneumonia) J18.9 Acute on chronic hypoxic respiratory failure J96.21 Acute dyspnea R06.00 Mixed restrictive and obstructive lung disease J43.9; J98.4 Bronchiectasis J47.9
[2023-09-25] MEDS: PANTOprazole 40 MG TAB PO SCH ×2 (09:56→20:55)
[2023-09-25] MEDS: LOSARTAN POTASSIUM 25 MG TAB PO SCH (09:56)
[2023-09-25] MEDS: UMECLIDINIUM BROMIDE 62.5MCG/BLISTER 7 PUFFS/INHALER INH SCH (09:57)
[2023-09-25] MEDS: FUROSEMIDE 40 MG TAB PO SCH (09:57)
[2023-09-25] MEDS: predniSONE 10 MG TABLET PO SCH (09:57)
[2023-09-25] MEDS: ATORVASTATIN 20 MG TAB PO SCH (09:57)
[2023-09-25] MEDS: ALTEPLASE, RECOMBINANT 10 MG in SYRINGE 50 ML IPL SCH (12:00)
[2023-09-25] MEDS: guaiFENesin 600 MG TABCR PO SCH ×2 (12:08→20:55)
[2023-09-25] MEDS: guaiFENesin/DEXTROM SYRUP 200MG/20MG 10ML UDC PO PRN (17:46)
[2023-09-25] MEDS: MELATONIN 3 MG TAB PO PRN (20:55)
[2023-09-25] MEDS: ACETAMINOPHEN 325 MG TAB PO PRN (20:55)
[2023-09-26] MEDS: ALTEPLASE, RECOMBINANT 10 MG in SYRINGE 50 ML IPL SCH ×2 (00:13→12:18)
[2023-09-26] MEDS: MEROPENEM 500 MG in SYRINGE 0 ML IV SCH ×2 (00:14→05:28)
[2023-09-26] MEDS: DORNASE ALFA 5 ML in SYRINGE 25 ML IPL SCH ×2 (02:24→14:05)
[2023-09-26] MEDS: DICLOFENAC SOD 1% GEL 100 GM TUBE EXT PRN ×2 (02:25→10:08)
[2023-09-26] MEDS: ALBUT/IPRATROP 3MG/0.5MG NEB 3 ML VIAL NEB SCH ×6 (03:21→22:52)
[2023-09-26 06:22] LABS: Hematocrit (blood only) 36.9 % (42.0-52.0); Mean Corpuscular Hemoglobin 27.4 pg (25.0-34.0); Mean Corpuscular Hgb Conc 32.5 g/dL (32.0-36.0); Mean Corpuscular Volume 84.2 fL (80.0-100.0); Platelet Count 125 K/uL (130-400); RDW Coefficient of Variation 14.9 % (11.5-14.5); RDW Standard Deviation 46.3 fL (36.4-46.3); Red Blood Count 4.38 M/uL (4.70-6.10)
[2023-09-26 06:37] LABS: Calcium 8.4 mg/dl (8.6-10.3); Magnesium 2.1 mg/dl (1.7-2.4); Potassium 3.9 mmol/L (3.5-5.1)
[2023-09-26 06:42] LABS: BUN Creatinine Ratio 19.8 (10-20); Creatinine Clr Calc Pharmacy 87.1 ml/min; Est GFR (African American) 95.9 ml/min; Est GFR (Non-African American) 82.7 ml/min
[2023-09-26 07:00] LABS: Ferritin 278.6 ng/ml (8-388)
--- NOTE | 2023-09-26 07:12 | XRay Report ---
XR chest 1V portable HISTORY: 73 years-old Male Chest tube ? MIST 2 protocol follow-up study in a patient with a left-lita ed chest tube COMPARISON: 09/25/2023 TECHNIQUE: AP view of the chest FINDINGS: Left-sided pleural drainage catheter is in similar positioning. Unchanged small left basilar pneumoth orax. Right lung volume loss and fibrosis redemonstrated with calcified mediastinal and right hilar l ymph nodes. Cardiomegaly. Unchanged blunting of the right costophrenic angle with small left pleural effusion. Bones appear grossly intact. IMPRESSION: 1. Stable positioning of the left-sided chest tube with unchanged small left basilar pneumothorax. 2. Right lung volume loss and fibrosis redemonstrated. ACT 112: Negative or not required by law. The above report was generated using voice recognition software. It may contain grammatical, syntax o r spelling errors. Electronically signed by: Shay Mcdonald M.D. 09/26/2023 7:11 AM
[2023-09-26] MEDS: FORMOTEROL 20 MCG/2 ML VIAL INH SCH (07:21)
[2023-09-26] MEDS: BUDESONIDE 0.5 MG/2 ML VIAL (PULMICORT) INH SCH ×2 (07:21→19:38)
--- NOTE | 2023-09-26 07:55 | Hospitalist Progress Note ---
Date of Service September 26, 2023 Assessment & Plan (1) Acute on chronic hypoxic respiratory failure: Plan: Acute on chronic hypoxic respiratory failure (On baseline 2L O2) following weeks of progressive symptoms in background of pulmonary sarcoidosis w/ resultant bronchiectasis. Completed 14 day course Ciprofloxacin recently RSV+ on admission D-dimer elevation on admission, Chest CTA NEGATIVE for PE -CT with findings of LLL consolidation concerning for possible pneumonia, small L pleural effusion w/ locules of air, ?early stages of empyema Pulmonology consulted. Was offered surgery however not interested in surgical intervention Suspected parapneumonic effusion/empyema s/p thoracentesis with Dr Simpson on 09/24. BLOODY DRAINAGE NOTED. MIST II protocol/daily CXR - CXR AM 09/25 w/ L basilar pleural catheter in place, no significant change in small L hydropneumothorax AFB/cytology pending/pathology pending pleural fluid with rare WBC, no organisms on preliminary -- monitor Continue nebs, daily prednisone (10mg at baseline, no increase per pulm) Trial BiPAP for tonight 07/18, outpatient sleep study pending (patient reports had one in past but has been many years) Pulmonary toilet, mucinex added back on. Sputum cx if able to produce IV Meropenem, may be able to de-escalate to Unasyn pending cx data -- per discussion w/ pulm will wait for pleural cx negative x 48 hours IVF DISCONTINUED, remains on lasix 40mg PO daily. Monitor for additional dosing Supplemental O2 to maintain sats (on baseline 2L O2) -- currently on his baseline 2L 09/26 CXR unchanged (noting valve turned to off overnight, draining this morning) Abx switched to PO Augmentin to complete course. Rx to CM for BiPAP for at dc -- asked secretary office clerk to call RT to trial 05/17 BiPAP overnight as appeared they used CPAP and not able to arrange. CO2 elevated on AM labs. Monitor w/ use of BiPAP Chest tube to be removed tomorrow. Possible dc tomorrow 09/27 to home (2) Respiratory syncytial virus (RSV): Plan: + testing on admission -- continue to maintain droplet precautions. 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 No hypotension at present, BP 163/68 (5) Atrial fibrillation: Plan: Currently NSR, rate-controlled Does not appear to be on anticoagulation despite CHADSVASC 2+. Cardiology reports 04/22/2023- notes that had episode 20 years ago and no recurrence since. Telemetry monitoring On ASA daily --? held w/ bloody tap. ?timing to resume once chest tube removed given bloody appearance/drainage (6) Chronic reflux esophagitis: Plan: On omeprazole at home -- pantoprazole/hospital formulary while inpatient No increased issues reported (7) Hyperlipidemia: Plan: Continue atorvastatin (8) Hypertension: Plan: BP stable 130/73 Continue lasix, irbesartan/hospital equivalent (9) Anemia: Plan: Hgb 12.9 on admission, now 11.7 --> 11.2 Likely chronic, however suspect dilutional as had been on IVF @ 125cc/hr since admission, now discontinued and hgb improved to 12 Monitor for bleeding, outpt f/u Plan DVT prophylaxis: SCDs, holding aspirin given thoracentesis/catheter/drainage at present Continued inpatient stay, possible catheter removal tomorrow pending eval/imaging Abx switched to PO Augmentin for today Patient hopeful for dc tomorrow. [facility] Admission and Anticipated Discharge Date Admission Date: September 23, 2023 Supervising Physician Co-Signing Physician Notes The patient was not seen by me. The chart was reviewed. Case discussed with LINDA Rick. Agree with assessment and plan Subjective Eval this morning, feeling well. RN doing dornase, some pain to back during drainage. Of note, stopcock had been turned to off, currently draining. CXR this AM unchanged. Planning for removal of chest tube tomorrow. Transitioned to PO abx. Legs w/ pain, gabapentin resumed but changed to BID as he was on TID but reported it was affecting his memory. Discussed possible dc tomorrow, arranging for BIPAP at dc. Given info for [facility] program for nutrition provided last evening. Questions/concerns addressed at this time. Physical Exam 2 Physical Exam: General: WN/WD chronically ill appearing male, obese, sitting up in bed on the phone, NAD, nurse draining catheter (L posterior site, dressing intact) HEENT: head normocephalic, atraumatic, thick neck, trachea midline Resp: bilateral crackles/diminished in base R>L, on 2L NC, +cough, no tachypnea, able to talk in complete sentences catheter to alexandra, no air leak appreciated bloody drainage noted CV: RRR, no significant mrg, +1+ pedal edema (calves nontender, pulses palpable) GI: +BS, +obese, slight distension, NT : no m[place]hee MSK/Neuro: nonfocal, answering questions appropriately, strength equal b/l Psych: AOx3, cooperative, talkative Results & Data Results & Data Vital Signs (Past 12 Hours) Vital Signs Temp Pulse Pulse Resp BP BP Pulse Ox 09/26/23 07:53 36.7 C 81 19 136/71 98 09/26/23 07:21 87 18 98 09/26/23 03:35 36.6 C 74 20 126/68 94 09/26/23 03:23 86 16 94 09/26/23 03:21 86 16 94 09/25/23 23:02 82 09/25/23 22:44 36.9 C 87 20 133/61 93 09/25/23 22:35 90 14 97 09/25/23 22:30 90 14 97 09/25/23 22:22 09/25/23 20:21 94 H 18 92 O2 Del Method O2 Flow Rate FiO2 09/26/23 07:53 Nasal Cannula 2 09/26/23 07:21 Nasal Cannula 2 09/26/23 03:35 Nasal Cannula 2 09/26/23 03:23 CPAP 2 09/26/23 03:21 2 09/25/23 23:02 09/25/23 22:44 CPAP 2 09/25/23 22:35 CPAP 2 09/25/23 22:30 2 09/25/23 22:22 Nasal Cannula 4 09/25/23 20:21 Nasal Cannula 2 Laboratory Results 09/26/23 05:08 09/26/23 05:08 Diagnostic Findings Chest X-Ray 09/26/23 08:00 XR chest 1V portable HISTORY: 73 years-old Male Chest tube ? MIST 2 protocol follow-up study in a patient with a left-sided chest tube COMPARISON: 09/25/2023 TECHNIQUE: AP view of the chest FINDINGS: Left-sided pleural drainage catheter is in similar positioning. Unchanged small left basilar pneumothorax. Right lung volume loss and fibrosis redemonstrated with calcified mediastinal and right hilar lymph nodes. Cardiomegaly. Unchanged blunting of the right costophrenic angle with small left pleural effusion. Bones appear grossly intact. IMPRESSION: 1. Stable positioning of the left-sided chest tube with unchanged small left basilar pneumothorax. 2. Right lung volume loss and fibrosis redemonstrated. ACT 112: Negative or not required by law. The above report was generated using voice recognition software. It may contain grammatical, syntax or spelling errors. Electronically signed by: Shay Mcdonald M.D. 09/26/2023 7:11 AM PG Care Time/CCT Total # of Minutes Spent Total Time Spent with Patient: Total time spent is greater than 50% in coordination of care (as documented) at patient's floor/unit and/or counseling patient: Coding Level of Care Code 72679 SUB INP/OBS CARE 3/50MIN Diagnoses Acute on chronic hypoxic respiratory failure J96.21 Respiratory syncytial virus (RSV) B33.8 Mixed restrictive and obstructive lung disease J43.9; J98.4 Sarcoidosis D86.9 Atrial fibrillation I48.91 Chronic reflux esophagitis K21.0 Hyperlipidemia E78.5 Hypertension I10 Anemia D64.9
--- NOTE | 2023-09-26 08:43 | Pulmonology Progress Note ---
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 He has been chronically on prednisone as tapering has resulted in patient feeling that his breathing is worsening despite no evidence of his sarcoid reactivating. He is admitted now with infectious symptoms after having completed a course of ciprofloxacin and CT scan shows pleural effusion on the left with gas pockets which is new compared to a CT scan from a month ago. He is status post 14 Citizen [place] pigtail catheter placement and initiation of mist 2 protocol. Blood gas showed hypercarbic respiratory failure. 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 Cultures have been negative to date. Recommendations: 1. Parapneumonic effusion/empyema: Cultures pending. Chest x-ray shows trapped lung with partial hydropneumothorax. Please last set of the mist protocol and likely remove the chest tube tomorrow. Expect the effusion to reaccumulate in short order given the trapped lung but hopefully it will remain sterile. Okay to de-escalate antibiotics down to oral Augmentin which she should complete for 10 days as an outpatient 2. Fibrotic lung disease: The patient has significant bronchiectasis. Unclear if this represents an exacerbation or not. Continue pulmonary toilet with nebulizers, bronchodilators, and Mucinex. He appears to be expectorating reasonably well so we will hold off on other mucolytic therapies. No indication for steroids above the patient's baseline dose of 10 mg of prednisone a day 3. Hypercarbic respiratory failure: Secondary to the patient's underlying fibrotic lung disease. He tolerated BiPAP last night. Recommend that he be set up with BiPAP 07/18. [facility] home care in [facility] home. Outpatient polysomnography will be required. Indication for his noninvasive positive pressure ventilation at night is fibrotic lung disease with restrictive PFTs and hypercarbic respiratory failure. 4. Hypoxemia: Continue supplemental oxygen titrated to keep saturations at or above 90%. Continue diuresis currently receiving Lasix 40 mg daily. Discontinue IV fluids. 5. Initiate PT and OT evaluations. Weight loss recommended. Dietary consultation If the patient remains stable, he can likely be dismissed from the hospital in the next 24 hours Admission and Anticipated Discharge Date Admission Date: September 23, 2023 Subjective Patient seen and examined. MAR reviewed. The patient reports that he feels his breathing is better. He is approaching baseline and is asking about potentially going home. He has had minimal output from his chest tube drain. He has not had fevers chills night sweats or other constitutional symptoms. Tolerating p.o. He did tolerate the BiPAP last night and thinks that may have made some improvement for him. Review of Systems 2 Review of Systems: All systems reviewed & are unremarkable except as noted in Subjective Physical Exam 2 Constitutional: WD/WN, vitals as above Neck: trachea midline, no thyromegaly Respiratory: no respiratory distress, no labored breathing and not tachypneic Auscultation: + crackles; no wheezes Cardiovascular: Rate/Rhythm: regular rate Heart Sounds: normal S1, normal S2 and + murmur Extremities: + edema Gastrointestinal (Abdomen): normal bowel sounds, soft, nontender, no hepatosplenomegaly Musculoskeletal: Extremities: extremities normal to inspection Skin: no rashes, warm and dry Lymphatic: no cervical lymphadenopathy Results & Data Results & Data Vital Signs (Past 12 Hours) Vital Signs Temp Pulse Pulse Resp BP BP Pulse Ox 09/26/23 08:00 74 09/26/23 07:53 36.7 C 81 19 136/71 98 09/26/23 07:45 09/26/23 07:21 87 18 98 09/26/23 03:35 36.6 C 74 20 126/68 94 09/26/23 03:23 86 16 94 09/26/23 03:21 86 16 94 09/25/23 23:02 82 09/25/23 22:44 36.9 C 87 20 133/61 93 09/25/23 22:35 90 14 97 09/25/23 22:30 90 14 97 09/25/23 22:22 O2 Del Method O2 Flow Rate FiO2 09/26/23 08:00 09/26/23 07:53 Nasal Cannula 2 09/26/23 07:45 Nasal Cannula 2 09/26/23 07:21 Nasal Cannula 2 09/26/23 03:35 Nasal Cannula 2 09/26/23 03:23 CPAP 2 09/26/23 03:21 2 09/25/23 23:02 09/25/23 22:44 CPAP 2 09/25/23 22:35 CPAP 2 09/25/23 22:30 2 09/25/23 22:22 Nasal Cannula 4 Laboratory Results 09/26/23 05:08 09/26/23 05:08 Diagnostic Findings No new imaging PG Care Time/CCT Total # of Minutes Spent Total Time Spent with Patient: Total time spent is greater than 50% in coordination of care (as documented) at patient's floor/unit and/or counseling patient: Coding Level of Care Code 25127 SUB INP/OBS CARE MIN Diagnoses Parapneumonic effusion J18.9; J91.8 PNA (pneumonia) J18.9 Acute on chronic hypoxic respiratory failure J96.21 Acute dyspnea R06.00 Mixed restrictive and obstructive lung disease J43.9; J98.4 Bronchiectasis J47.9
[2023-09-26] MEDS: ACETAMINOPHEN 325 MG TAB PO PRN ×2 (10:08→20:49)
[2023-09-26] MEDS: guaiFENesin 600 MG TABCR PO SCH ×2 (10:08→20:43)
[2023-09-26] MEDS: FUROSEMIDE 40 MG TAB PO SCH (10:10)
[2023-09-26] MEDS: ATORVASTATIN 20 MG TAB PO SCH (10:10)
[2023-09-26] MEDS: predniSONE 10 MG TABLET PO SCH (10:11)
[2023-09-26] MEDS: LOSARTAN POTASSIUM 25 MG TAB PO SCH (10:11)
[2023-09-26] MEDS: PANTOprazole 40 MG TAB PO SCH ×2 (10:11→20:43)
[2023-09-26] MEDS: UMECLIDINIUM BROMIDE 62.5MCG/BLISTER 7 PUFFS/INHALER INH SCH (10:13)
[2023-09-26] MEDS ORDERED: GABAPENTIN 300 MG CAP PO SCH (10:30)
[2023-09-26] MEDS: AMOXICILLIN/CLAVULANATE 875 MG TAB PO SCH (17:10)
[2023-09-26] MEDS: guaiFENesin/DEXTROM SYRUP 200MG/20MG 10ML UDC PO PRN (20:43)
[2023-09-26] MEDS: MELATONIN 3 MG TAB PO PRN (20:49)
[2023-09-26] MEDS: GABAPENTIN 300 MG CAP PO SCH (21:33)
[2023-09-27] MEDS: ALTEPLASE, RECOMBINANT 10 MG in SYRINGE 50 ML IPL SCH (00:17)
[2023-09-27] MEDS: ALBUT/IPRATROP 3MG/0.5MG NEB 3 ML VIAL NEB SCH ×4 (02:10→15:24)
[2023-09-27] MEDS: DORNASE ALFA 5 ML in SYRINGE 25 ML IPL SCH (02:15)
[2023-09-27 06:23] LABS: Hematocrit (blood only) 37.3 % (42.0-52.0); Hemoglobin 11.8 g/dl (14.0-18.0); Mean Corpuscular Hemoglobin 27.3 pg (25.0-34.0); Mean Corpuscular Hgb Conc 31.6 g/dL (32.0-36.0); Mean Corpuscular Volume 86.1 fL (80.0-100.0); Mean Platelet Volume 8.8 fL (9.4-12.4); Platelet Count 129 K/uL (130-400); RDW Coefficient of Variation 14.8 % (11.5-14.5); RDW Standard Deviation 46.9 fL (36.4-46.3); Red Blood Count 4.33 M/uL (4.70-6.10); White Blood Count 5.15 K/ul (4.8-10.8)
[2023-09-27 06:50] LABS: BUN Creatinine Ratio 21.3 (10-20); Calcium 8.4 mg/dl (8.6-10.3); Creatinine Clr Calc Pharmacy 88.9 ml/min; Est GFR (African American) 97.6 ml/min; Est GFR (Non-African American) 84.2 ml/min; Magnesium 2.2 mg/dl (1.7-2.4); Potassium 3.8 mmol/L (3.5-5.1)
[2023-09-27] MEDS: FORMOTEROL 20 MCG/2 ML VIAL INH SCH (07:20)
[2023-09-27] MEDS: BUDESONIDE 0.5 MG/2 ML VIAL (PULMICORT) INH SCH (07:20)
--- NOTE | 2023-09-27 07:49 | Hospitalist Progress Note ---
Date of Service September 27, 2023 Assessment & Plan (1) Acute on chronic hypoxic respiratory failure: Plan: Acute on chronic hypoxic respiratory failure (On baseline 2L O2) following weeks of progressive symptoms in background of pulmonary sarcoidosis w/ resultant bronchiectasis. Completed 14 day course Ciprofloxacin recently RSV+ on admission D-dimer elevation on admission, Chest CTA NEGATIVE for PE -CT with findings of LLL consolidation concerning for possible pneumonia, small L pleural effusion w/ locules of air, ?early stages of empyema Pulmonology consulted. Was offered surgery however not interested in surgical intervention Suspected parapneumonic effusion/empyema s/p thoracentesis with Dr Simpson on 09/24. BLOODY DRAINAGE NOTED. MIST II protocol/daily CXR - CXR AM 09/25 w/ L basilar pleural catheter in place, no significant change in small L hydropneumothorax AFB/cytology pending/pathology pending pleural fluid with rare WBC, no organisms on preliminary -- monitor Continue nebs, daily prednisone (10mg at baseline, no increase per pulm) Trial BiPAP for tonight 07/18, outpatient sleep study pending (patient reports had one in past but has been many years) Pulmonary toilet, mucinex added back on. Sputum cx if able to produce IV Meropenem, may be able to de-escalate to Unasyn pending cx data -- per discussion w/ pulm will wait for pleural cx negative x 48 hours IVF DISCONTINUED, remains on lasix 40mg PO daily. Monitor for additional dosing Supplemental O2 to maintain sats (on baseline 2L O2) -- currently on his baseline 2L 09/26 CXR unchanged (noting valve turned to off overnight, draining this morning) Abx switched to PO Augmentin to complete course. Rx to CM for BiPAP for at dc -- asked service secretary to call RT to trial 05/17 BiPAP overnight as appeared they used CPAP and not able to arrange. CO2 elevated on AM labs. Monitor w/ use of BiPAP Chest tube to be removed tomorrow. Possible dc tomorrow 09/27 to home (2) Respiratory syncytial virus (RSV): Plan: + testing on admission -- continue to maintain droplet precautions. 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 No hypotension at present, BP 163/68 (5) Atrial fibrillation: Plan: Currently NSR, rate-controlled Does not appear to be on anticoagulation despite CHADSVASC 2+. Cardiology reports 04/22/2023- notes that had episode 20 years ago and no recurrence since. Telemetry monitoring On ASA daily --? held w/ bloody tap. ?timing to resume once chest tube removed given bloody appearance/drainage (6) Chronic reflux esophagitis: Plan: On omeprazole at home -- pantoprazole/hospital formulary while inpatient No increased issues reported (7) Hyperlipidemia: Plan: Continue atorvastatin (8) Hypertension: Plan: BP stable 130/73 Continue lasix, irbesartan/hospital equivalent (9) Anemia: Plan: Hgb 12.9 on admission, now 11.7 --> 11.2 Likely chronic, however suspect dilutional as had been on IVF @ 125cc/hr since admission, now discontinued and hgb improved to 12 Monitor for bleeding, outpt f/u Plan DVT prophylaxis: SCDs, holding aspirin given thoracentesis/catheter/drainage at present Continued inpatient stay, possible catheter removal tomorrow pending eval/imaging Abx switched to PO Augmentin for today Patient hopeful for dc tomorrow[facility] Admission and Anticipated Discharge Date Admission Date: September 23, 2023 Results & Data Results & Data Vital Signs (Past 12 Hours) Vital Signs Temp Pulse Pulse Resp BP Pulse Ox O2 Del Method 09/27/23 07:22 81 18 98 Nasal Cannula 09/27/23 03:02 36.8 C 72 16 131/68 95 BiPAP 09/27/23 02:12 78 20 97 BiPAP 09/27/23 02:11 77 20 98 09/26/23 23:05 36.4 C L 75 14 128/70 96 BiPAP 09/26/23 22:59 76 09/26/23 22:52 76 18 98 BiPAP 09/26/23 22:06 Nasal Cannula 09/26/23 21:45 76 25 H 96 O2 Flow Rate 09/27/23 07:22 2 09/27/23 03:02 09/27/23 02:12 2 09/27/23 02:11 2 09/26/23 23:05 09/26/23 22:59 09/26/23 22:52 2 09/26/23 22:06 2 09/26/23 21:45 2 Laboratory Results 09/27/23 04:42 09/27/23 04:42 PG Care Time/CCT Total # of Minutes Spent Total Time Spent with Patient: Total time spent is greater than 50% in coordination of care (as documented) at patient's floor/unit and/or counseling patient: Coding Diagnoses Acute on chronic hypoxic respiratory failure J96.21 Respiratory syncytial virus (RSV) B33.8 Mixed restrictive and obstructive lung disease J43.9; J98.4 Sarcoidosis D86.9 Atrial fibrillation I48.91 Chronic reflux esophagitis K21.0 Hyperlipidemia E78.5 Hypertension I10 Anemia D64.9
--- NOTE | 2023-09-27 08:00 | Procedure Note ---
Procedure Note Date of Service September 27, 2023 Note Procedure: Removal of 14 [place] pigtail catheter Health Professional Dr. Simpson Estimated blood loss none Indication: Resolution of pleural space fluid Consent risk and benefits discussed with the patient. He agreed to proceed. Procedure the patient was placed in a seated upright position. The dressing was taken down. The locking mechanism on the pigtail catheter was released. Under full expiration, the catheter was briskly removed and an occlusive dressing applied. Catheter was intact. The patient tolerated the procedure well without complication Coding CPT Codes Pulmonary/Thoracic - Pulmonary and Thoracic: 68373 Remove lung catheter ([id number]) [facility] [place] Procedure Codes (Charges) Pulmonary/Thoracic Procedure 1: Pulmonary and Thoracic: 59892 Remove lung catheter
--- NOTE | 2023-09-27 08:03 | Pulmonology Progress Note ---
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 He has been chronically on prednisone as tapering has resulted in patient feeling that his breathing is worsening despite no evidence of his sarcoid reactivating. He is admitted now with infectious symptoms after having completed a course of ciprofloxacin and CT scan shows pleural effusion on the left with gas pockets which is new compared to a CT scan from a month ago. He is status post 14 Vietnamese pigtail catheter placement and initiation of mist 2 protocol. Blood gas showed hypercarbic respiratory failure. 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 Cultures have been negative to date. Minimal output from the drain today Recommendations: 1. Parapneumonic effusion/empyema: Cultures negative today. Chest x-ray shows trapped lung. Minimal output and chest tube was removed today. Recommend completing an additional 7 days of oral Augmentin and follow-up with me in pulmonary clinic the first week of October with a chest x-ray. 2. Fibrotic lung disease: The patient has significant bronchiectasis. Unclear if this represents an exacerbation or not. Continue pulmonary toilet with nebulizers, bronchodilators, and Mucinex. He appears to be expectorating reasonably well so we will hold off on other mucolytic therapies. No indication for steroids above the patient's baseline dose of 10 mg of prednisone a day. Will work on tapering his steroids in the outpatient setting 3. Hypercarbic respiratory failure: Secondary to the patient's underlying fibrotic lung disease. He tolerated BiPAP last night. Recommend that he be set up with BiPAP /. [facility] home care in [facility]. Outpatient polysomnography will be required. Indication for his noninvasive positive pressure ventilation at night is fibrotic lung disease with restrictive PFTs and hypercarbic respiratory failure. 4. Hypoxemia: Continue supplemental oxygen titrated to keep saturations at or above 90%. Continue diuresis currently receiving Lasix 40 mg daily. Discontinue IV fluids. Patient can be dismissed from the hospital with outpatient follow-up with his primary care provider in the next 1 to 2 weeks and follow-up with me in pulmonary clinic the first week of October with a chest x-ray. Feel free to contact us with questions or concerns. Pulmonary will sign off Admission and Anticipated Discharge Date Admission Date: September 23, 2023 Subjective Patient seen and examined. EMR reviewed. The patient states that he is doing better. Has not had fevers chills night sweats or other constitutional symptoms overnight. He is not coughing or expectorating phlegm. He is not having any significant chest pain. His chest tube output has been fairly minimal except for the instillation of the intrapleural fibrinolytics. He did use CPAP last night. He states this was more comfortable for him. He like to better than the BiPAP. He is open to the prospect of using nocturnal positive airway pressure in the outpatient setting. Review of Systems 2 Review of Systems: All systems reviewed & are unremarkable except as noted in Subjective Physical Exam 2 Constitutional: WD/WN, vitals as above Neck: trachea midline, no thyromegaly Respiratory: no respiratory distress, no labored breathing and not tachypneic Auscultation: + crackles; no wheezes Cardiovascular: Rate/Rhythm: regular rate Heart Sounds: normal S1, normal S2 and + murmur Extremities: + edema Gastrointestinal (Abdomen): normal bowel sounds, soft, nontender, no hepatosplenomegaly Musculoskeletal: Extremities: extremities normal to inspection Skin: no rashes, warm and dry Lymphatic: no cervical lymphadenopathy Results & Data Results & Data Vital Signs (Past 12 Hours) Vital Signs Temp Pulse Pulse Resp BP Pulse Ox O2 Del Method 09/27/23 07:22 81 18 98 Nasal Cannula 09/27/23 03:02 36.8 C 72 16 131/68 95 BiPAP 09/27/23 02:12 78 20 97 BiPAP 09/27/23 02:11 77 20 98 09/26/23 23:05 36.4 C L 75 14 128/70 96 BiPAP 09/26/23 22:59 76 09/26/23 22:52 76 18 98 BiPAP 09/26/23 22:06 Nasal Cannula 09/26/23 21:45 76 25 H 96 O2 Flow Rate 09/27/23 07:22 2 09/27/23 03:02 09/27/23 02:12 2 09/27/23 02:11 2 09/26/23 23:05 09/26/23 22:59 09/26/23 22:52 2 09/26/23 22:06 2 09/26/23 21:45 2 Laboratory Results 09/27/23 04:42 09/27/23 04:42 Microbiology 09/24/23 14:51 Sputum, Expectorated Acid Fast Bacilli Smear - Final 09/24/23 Unknown Pleural Fluid Gram Stain - Final 09/24/23 Unknown Pleural Fluid Aerobic and Anaerobic Culture - Preliminary No growth to date. 09/24/23 Unknown Pleural Fluid,Left Acid Fast Bacilli Smear - Final 09/24/23 14:51 Sputum, Expectorated Gram Stain - Final 09/24/23 14:51 Sputum, Expectorated Sputum Culture - Final 09/23/23 23:34 Sputum, Expectorated Gram Stain - Final 09/23/23 23:34 Sputum, Expectorated Sputum Culture - Final Diagnostic Findings Chest x-ray today was reviewed. There is a persistent airspace at the base of the left lung consistent with trapped lung PG Care Time/CCT Total # of Minutes Spent Total Time Spent with Patient: Total time spent is greater than 50% in coordination of care (as documented) at patient's floor/unit and/or counseling patient: Coding Level of Care Code 76681 SUB INP/OBS CARE 2/35MIN Diagnoses Parapneumonic effusion J18.9; J91.8 PNA (pneumonia) J18.9 Acute on chronic hypoxic respiratory failure J96.21 Acute dyspnea R06.00 Mixed restrictive and obstructive lung disease J43.9; J98.4 Bronchiectasis J47.9
--- NOTE | 2023-09-27 09:41 | XRay Report ---
XR chest 1V portable HISTORY: 73 years-old Male Chest tube ? MIST 2 protocol follow-up study in a patient with left-sided chest tube COMPARISON: 09/26/2023 TECHNIQUE: AP view of the chest FINDINGS: Left-sided pleural drainage catheter is in similar positioning. Slightly decreased size of the small left basilar pneumothorax. Right lung volume loss and fibrosis redemonstrated with calcified mediasti nal and right hilar lymph nodes. Cardiomegaly. Unchanged blunting of the right costophrenic angle wit h small left pleural effusion. Bones appear grossly intact. IMPRESSION: 1. Stable positioning of the left-sided chest tube with slightly decreased small left basilar pneumot horax. 2. Right lung volume loss and fibrosis redemonstrated. ACT 112: Negative or not required by law. The above report was generated using voice recognition software. It may contain grammatical, syntax o r spelling errors. Electronically signed by: Shay Mcdonald M.D. 09/27/2023 9:40 AM
[2023-09-27] MEDS: ATORVASTATIN 20 MG TAB PO SCH (10:49)
[2023-09-27] MEDS: AMOXICILLIN/CLAVULANATE 875 MG TAB PO SCH (10:49)
[2023-09-27] MEDS: GABAPENTIN 300 MG CAP PO SCH (10:49)
[2023-09-27] MEDS: LOSARTAN POTASSIUM 25 MG TAB PO SCH (10:49)
[2023-09-27] MEDS: guaiFENesin 600 MG TABCR PO SCH (10:49)
[2023-09-27] MEDS: predniSONE 10 MG TABLET PO SCH (10:49)
[2023-09-27] MEDS: UMECLIDINIUM BROMIDE 62.5MCG/BLISTER 7 PUFFS/INHALER INH SCH (10:49)
[2023-09-27] MEDS: PANTOprazole 40 MG TAB PO SCH (10:49)
[2023-09-27] MEDS: FUROSEMIDE 40 MG TAB PO SCH (10:49)
--- NOTE | 2023-09-27 10:56 | Discharge Summary ---
Date of Service September 27, 2023 Admission HPI Per Admitting Provider Pt is 73 yo M with PMH pulmonary sarcoidosis via biopsy confirmation, bronchiectasis, mixed obstructive/restrictive lung disease, chronic hypoxic respiratory failure on 2L O2 NC at all times, paroxysmal AF, GERD, HTN, HLD presenting with dyspnea. Pt reports ongoing dyspnea and productive cough since mid 08/2023. He did go to [place] [facility] [facility] around 08/30 and was discharged with azithromycin, prednisone and bronchodilators though this did not help his symptoms. His symptoms worsened and evolved to include nasal and chest congestion. He did see tunneling machine operator on 09/09 and was diagnosed with bronchiectasis exacerbation- discharged on ciprofloxacin, Breo Ellipta discontinued and started on nebulized Perforomist and budenoside, Incruse added. Pt has been doing home nebulizer treatments regularly. Reports staying on 2L NC baseline oxygen requirement except turning up to 3L with exertion, denies fevers or chills. He has been more sedentary lately due to this shortness of breath. Pt arrived to ER hemodynamically stable. Initial evaluation significant for Hgb 12.9, D-dimer 3820, BNP 11, RSV positive. Negative procalcitonin. Chest CT demonstrating LLL consolidation, small L pleural effusion w/ air locules co ncerning for possible empyema. ER interventions include albuterol nebulizer x2, NSS 1L mIVF. At present, pt reports continued dyspnea but no new complaits. Admission Exam Per Admitting Provider General: tired-appearing, no acute distress HEENT: PERRL, EOMI, conjunctivae clear without injection, anicteric sclerae, moist mucous membranes, clear oropharynx without exudate or erythema Neck: supple, trachea midline, no thyromegaly, no JVD, no cervical lymphadenopathy CV: RRR, normal S1 and S2, no murmurs Resp: Diffusely coarse breath sounds of all lung cunningham with bibasilar crackles, diminished inspiratory effort and expiratory wheeze noted. Conversational dyspnea Abd: Soft, nontender, nondistended, no guarding or rebound, no hepatosplenomegaly MSK: Normal bulk of all four extremities Neuro: AOx3, no focal motor or sensory deficits Skin: no rashes or lesions, warm and dry Ext: no LE peripheral edema or erythema, capillary refill <2s in all four extremities, 2+ LE peripheral pulses b/l Principal Diagnosis Parapneumonic Effusion, Pneumonia, Acute on Chronic Respiratory Failure Discharge Exam General: WN/WD chronically ill appearing male, obese, sitting up in bed on the phone, NAD, nurse draining catheter (L posterior site, dressing intact) HEENT: head normocephalic, atraumatic, thick neck, trachea midline Resp: bilateral crackles/diminished in base R>L, on 2L NC, no tachypnea, able to talk in complete sentences catheter site with tegaderm dressing CV: RRR, no significant mrg, trace pedal edema, calves nontender, pulses present GI: +BS, +obese, NT : no mcghee MSK/Neuro: nonfocal, answering questions appropriately, strength equal b/l Psych: AOx3, cooperative, talkative Discharge Data Allergies Allergy/AdvReac Type Severity Reaction Status Date / Time cefuroxime Allergy Unknown unknown Verified 09/23/23 21:51 formoterol [From Perforomist] Allergy Unknown Unknown Verified 09/23/23 21:51 minocycline Allergy Unknown unknown Verified 09/23/23 21:51 tetracycline Allergy Unknown Unknown Verified 09/23/23 21:51 duloxetine [From Cymbalta] AdvReac Intermediate HEADACHES Verified 09/23/23 21:51 voriconazole AdvReac Intermediate hallucinati Verified 09/23/23 21:51 ons Consultations 09/23/23 23:38 ED Decision to Admit Stat 09/23/23 23:57 Consult Pulmonology Routine Ordered Studies Chest X-Ray 09/23/23 19:29 XR chest 1V not portable HISTORY: 73 years-old Male Chest pain, nonspecific acute chest pain COMPARISON: CTA chest of same day and also 08/31/2023. TECHNIQUE: PA view of the chest FINDINGS: Cardiac silhouette is enlarged. Small left-sided hydropneumothorax. Chronic right lung volume loss with mixed interstitial and alveolar opacities and bronchiectasis. Unchanged left basilar consolidation. Chronic mediastinal and hilar calcifications with rightward midline shift. No overt pulmonary edema. IMPRESSION: 1. Small left basilar hydropneumothorax. The size of the left pleural effusion is unchanged from 08/31/2023, however the small locules of air are new from prior and may be secondary to infection or instrumentation. 2. Chronic right lung volume loss and fibrosis. 3. Unchanged left basilar consolidation suggestive of atelectasis with scarring. ACT 112: Negative or not required by law. The above report was generated using voice recognition software. It may contain grammatical, syntax or spelling errors. Electronically signed by: Shay Mcdonald M.D. 09/24/2023 7:28 AM Chest CTA 09/23/23 21:13 Exam(s): CTA CHEST IV Amt: 117 ml optiray 320 EXAM: CT Angiography Chest With Intravenous Contrast CLINICAL HISTORY: Reason for exam: PE. TECHNIQUE: Axial computed tomographic angiography images of the chest with intravenous contrast. CTDI is 27.93 mGy and DLP is 985.58 mGy-cm. Automated exposure control was utilized for the study. A dose lowering technique was utilized adhering to the principles of ALARA. MIP reconstructed images were created and reviewed. COMPARISON: No relevant prior studies available. FINDINGS: Pulmonary arteries: Unremarkable. No pulmonary embolism. Aorta: Atherosclerotic changes of the aorta. No thoracic aortic aneurysm. Lungs: Airspace consolidation in the LEFT lower lobe, concerning for round atelectasis versus pneumonia. Correlate clinically. Atelectasis at the lung bases. Pleural space: Small LEFT pleural effusion with multiple locules of air, which may represent early stages of a empyema. Correlate clinically. Heart: Mild cardiomegaly. No significant pericardial effusion. No evidence of RV dysfunction. Mediastinum: Calcified mediastinal and hilar lymph nodes, correlate for history of granulomatous disease. Bones/joints: Degenerative changes of the spine. No acute fracture. No dislocation. Soft tissues: Unremarkable. Lymph nodes: See above. Liver: Hepatic steatosis. IMPRESSION: 1. Airspace consolidation in the LEFT lower lobe, concerning for round atelectasis versus pneumonia. Correlate clinically. 2. Small LEFT pleural effusion with multiple locules of air, which may represent early stages of a empyema. Correlate clinically. 3. Hepatic steatosis. 4. Calcified mediastinal and hilar lymph nodes, correlate for history of granulomatous disease. Electronically signed by: Jagjit Tran MD 09/23/23 22:27 PM Chest X-Ray 09/24/23 10:07 XR chest 1V portable CLINICAL HISTORY: Chest tube placement. COMPARISON STUDY: Chest radiograph and chest CT September 23, 2023. FINDINGS: Interval placement of a left basilar pleural catheter is noted. Left pleural fluid has decreased in amount. Small amount of pleural gas is redemonstrated. This represents a small left hydropneumothorax, decreased in size. Chronic changes within the right upper lobe with fibrosis are noted. Left basilar opacity persists. Cardiomediastinal silhouette is stable. No apical pneumothorax is present. There are calcified mediastinal and bilateral hilar lymph nodes as well as calcified granulomas within the lungs. IMPRESSION: 1. Interval placement of a left basilar pleural catheter. Decrease in size of a small left hydropneumothorax. 2. Persistent left basilar opacity. 3. Chronic changes within the right lung with right upper lobe fibrosis. ACT 112: Negative or not required by law. Electronically signed by: Shakeel Keen M.D. 09/24/2023 10:34 AM Chest X-Ray 09/25/23 08:00 XR chest 1V portable CLINICAL HISTORY: Chest tube ? MIST 2 protocol COMPARISON STUDY: Chest CT September 23, 2023. Chest radiograph September 24, 2023. FINDINGS: Left basilar pleural catheter is in place. A small left hydropneumothorax is similar to prior exam. Cardiomediastinal silhouette is stable. Chronic interstitial thickening within the right upper lung is noted. Right midlung opacity may have slightly increased. Calcified mediastinal and hilar lymph nodes are incidentally noted. Left basilar opacity persists. IMPRESSION: 1. Left basilar pleural catheter in place. No significant change in a small left hydropneumothorax. 2. Persistent left basilar opacity. Possible slight increase in right midlung opacity. 3. Right upper lobe fibrosis. ACT 112: Negative or not required by law. Electronically signed by: Shakeel Keen M.D. 09/25/2023 7:08 AM Chest X-Ray 09/26/23 08:00 XR chest 1V portable HISTORY: 73 years-old Male Chest tube ? MIST 2 protocol follow-up study in a patient with a left-sided chest tube COMPARISON: 09/25/2023 TECHNIQUE: AP view of the chest FINDINGS: Left-sided pleural drainage catheter is in similar positioning. Unchanged small left basilar pneumothorax. Right lung volume loss and fibrosis redemonstrated with calcified mediastinal and right hilar lymph nodes. Cardiomegaly. Unchanged blunting of the right costophrenic angle with small left pleural effusion. Bones appear grossly intact. IMPRESSION: 1. Stable positioning of the left-sided chest tube with unchanged small left basilar pneumothorax. 2. Right lung volume loss and fibrosis redemonstrated. ACT 112: Negative or not required by law. The above report was generated using voice recognition software. It may contain grammatical, syntax or spelling errors. Electronically signed by: Shay Mcdonald M.D. 09/26/2023 7:11 AM Chest X-Ray 09/27/23 08:00 XR chest 1V portable HISTORY: 73 years-old Male Chest tube ? MIST 2 protocol follow-up study in a patient with left-sided chest tube COMPARISON: 09/26/2023 TECHNIQUE: AP view of the chest FINDINGS: Left-sided pleural drainage catheter is in similar positioning. Slightly decreased size of the small left basilar pneumothorax. Right lung volume loss and fibrosis redemonstrated with calcified mediastinal and right hilar lymph nodes. Cardiomegaly. Unchanged blunting of the right costophrenic angle with sm all left pleural effusion. Bones appear grossly intact. IMPRESSION: 1. Stable positioning of the left-sided chest tube with slightly decreased small left basilar pneumothorax. 2. Right lung volume loss and fibrosis redemonstrated. ACT 112: Negative or not required by law. The above report was generated using voice recognition software. It may contain grammatical, syntax or spelling errors. Electronically signed by: Shay Mcdonald M.D. 09/27/2023 9:40 AM Hospital Course (1) Acute on chronic hypoxic respiratory failure: Acute on chronic hypoxic respiratory failure (On baseline 2L O2) following weeks of progressive symptoms in background of pulmonary sarcoidosis w/ resultant bronchiectasis. Completed 14 day course Ciprofloxacin recently as an outpatient. Found to have +RSV testing on admission as well. Ddimer eleated --> CT chest obtained which was NEGATIVE for PE but noted LLL consolidation concerning for pneumonia w/ small LEFT pleural effusion w/ locules of air concerning for parapneumonic effusion Pulmonology consulted Underwent thoracentesis/catheter placement with Dr Simpson on 09/24 with bloody drainage. MIST II protocol undertaken and subsequent CXR w/ some improvement however may have demonstrated chronic nature of effusion. Was on IV abx w/ Meropenem, cultures remained NEGATIVE Continued usual nebs, daily 10 mg prednisone (per pulm no need for increase -- working on tapering outpatient) Transitioned to PO Augmentin and to continue an additional 7 days of such at discharge and have f/u in October with repeat CXR. Trial of BiPAP while inpatient, did tolerate overnight / w/ improvement in CO2. Req nasal pillows for claustrophobia w/ mask at times/ill fitting/falling off Per pulmonology, benefit from BiPAP for "Hypercarbic respiratory failure: Secondary to the patient's underlying fibrotic lung disease. He tolerated BiPAP last night. Recommend that he be set up with BiPAP 05/17. [facility] [place] going home. Outpatient polysomnography will be required. Indication for his noninvasive positive pressure ventilation at night is fibrotic lung disease with restrictive PFTs and hypercarbic respiratory failure." Bleed 3 L in w/ BiPAP Supplemental O2 to maintain sats -- down to usual 2L prior to discharge (2) Respiratory syncytial virus (RSV): + testing on admission -- continued to maintain droplet precautions while inpatient. supportive care/treatment as outlined (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: Continued maintenance inhalers- Brovana, added Incruse --> Rx for Incruse at [place] BiPAP as above at dc (4) Sarcoidosis: Noted history of such Continued baseline prednisone 10 mg -- no need for increased/stress dosing per pulm. No hypotension at present, BP stable (5) Atrial fibrillation: Currently NSR, rate-controlled Does not appear to be on anticoagulation despite CHADSVASC 2+. Cardiology reports 04/22/2023- notes that had episode 20 years ago and no recurrence since. Telemetry monitoring On ASA daily --? held w/ bloody tap. ?timing to resume once chest tube removed given bloody appearance/drainage --> resumed at d/c F/u PCP (6) Chronic reflux esophagitis: On omeprazole at home -- pantoprazole/hospital formulary while inpatient and resumed home meds at dc (7) Hyperlipidemia: Continued atorvastatin (8) Hypertension: Stable BP, continued on home meds/hospital equivalent for his irbesartan (9) Anemia: Hgb 12.9 on admission, now 11.7 --> 11.2 and was on chronic IVF and improved/stable since discontinued Plan DVT prophylaxis: SCDs, held ASA for thoracentesis/catheter placement CT w/o PE as above D/c on PO augmentin for another 7 day course, BiPAP to be delivered on Saturday Outpt f/u PCP and pulmonology Also given information for dietary program through [place] for nutrition w chronic lung disease Total Time Total Time Spent Total Time Spent (In Minutes): 50 Discharge Plan Discharge Items Patient Disposition: Home - Self-Care Reason For Visit: HYPOXIC RESPIRATORY FAILURE Discharge Diagnosis: Pneumonia, RSV, Parapneumonic Effusion Goals: You have been hospitalized for an acute medical problem. During your stay at [facility], we have made an effort to correct the problem that brought you to the hospital while keeping you as comfortable as possible. Medications were used to bring your condition under control and your discharge instructions will include directions for any medications you should take after leaving the hospital. Please make sure you see your Primary Care Provider as part of your follow up plan. Activity: As commented below Non-emergency contact: Primary Care Provider and Stitch Bonding Machine Tender Call non-emergency contact if: you have any medication questions, your symptoms worsen, your pain is not controlled and you have a fever Follow-up/Referrals: Dieter Simpson MD [Physician] - 10/02/23 8:30 am Steven Spring PA-C [Primary Care Provider] - 10/16/23 7:40 am (access control specialist list for an earlier appt) Diet: Carb Consistent or DM2 and Heart Healthy Addtl Attending Provider Instructions: You have been hospitalized for shortness of breath and found to be positive for viral infection as well as concerns for pneumonia/effusion. Pulmonology was consulted and you underwent chest tube placement for drainage and cultures have been negative. You have been treated with IV antibiotic and switched to Augmentin orally which will be continued for another 7 days, twice a day, per the lung doctors. You also were started on inhaler called incruse which should be continued and take 1 puff daily. You have been set up with BiPAP to wear while sleeping/napping and they should deliver to you on Saturday. You will need an outpatient sleep study. You should have follow up with pulmonology in October as discussed. Please follow up with primary care in the next 7-10 days to monitor your status. Please return to the ER with any increased shortness of breath, pain, sputum production or any other symptoms concerning for you. It has been a pleasure being a part of the medical team providing for you while you have been in the hospital. Take care! You have an appointment at [facility] in [place] for SaturdaySep 30 at 1100 to get your Bipap. Pending Studies at Discharge: Yes Studies:: Pleural fluid -- cultures NO GROWTH TO DATE. AFB cx Stand-Alone Forms: My [facility] [place], Smoking Cessation Medications and DC Order Prescriptions: New amoxicillin-pot clavulanate 875-125 mg Tablet 1 tab PO BIDM Qty: 14 0RF (DME) BiPap Machine Misc See Rx Instructions .ROUTE Qty: 1 0RF Rx Instructions: As directed Incruse Ellipta 62.5 mcg/actuation Blister With Device 1 inh inhalation DAILY Qty: 30 0RF Continued aspirin [Adult Low Dose Aspirin] 81 mg tablet,delayed release (DR/EC) 81 mg PO DAILY (DME) Oxygen Home Liters Per Minute See Dose Instructions .ROUTE .MEDSUPPLY Qty: 1 Rx Instructions: 3lpm irbesartan [Avapro] 75 mg tablet 75 mg PO DAILY codeine-guaifenesin 10-100 mg/5 mL liquid 5 ml PO Q6H PRN (Reason: cough) Qty: 236 0RF valacyclovir [Valtrex] 1 gram tablet 1,000 mg PO Q8H PRN (Reason: Shingles) Qty: 21 5RF omeprazole 20 mg capsule,delayed release(DR/EC) 20 mg PO BID Qty: 180 1RF albuterol sulfate [Ventolin HFA] 90 mcg/actuation HFA aerosol inhaler 2 puff INH Q4H PRN (Reason: shortness of breath or wheezing) Qty: 6 1RF budesonide 0.5 mg/2 mL suspension for nebulization 0.5 mg inhalation BID Qty: 60 2RF Rx Instructions: STARTED 09/09/23 FOR 15 DAYS. arformoterol [Brovana] 15 mcg/2 mL solution for nebulization 15 mcg inhalation DAILY Qty: 120 3RF guaifenesin [Mucinex] 1,200 mg tablet extended release 12hr 1,200 mg PO BID Qty: 60 3RF atorvastatin 20 mg tablet 20 mg PO DAILY multivitamin Tablet 1 tab PO DAILY (DME) Flutter Valve Device See Rx Instructions .ROUTE .MEDSUPPLY Qty: 1 0RF Rx Instructions: Use after nebulizer treatment and as needed during the day prednisone 10 mg Tablet 10 mg PO DAILY Rx Instructions: PER PT "UNTIL FEELING BETTER". furosemide 40 mg tablet 40 mg PO DAILY Rx Instructions: TAKE 1 TABLET DAILY albuterol sulfate 2.5 mg /3 mL (0.083 %) solution for nebulization 2.5 mg inhalation Q4H PRN (Reason: Shortness Of Breath Or Wheezing) Rx Instructions: INHALE 2.5 MG (3 ML) EVERY 4 HOURS NEEDED FOR SHORTNESS OF BREATH OR WHEEZING Discharge Orders: Discharge Order (Routine); Ordered 09/27/23 Ordered By: Araseli Tan/Other Patient Handouts: Chronic Lung Disease Nutrition, Lung Disease Healthy Weight Admission Data Admit Date/Time: 09/23/23 23:57 Attending Provider: Logan Tompkins Admit Provider: Fidel Holloway Primary Care Provider: Steven Spring Other Providers: Varinder Durbin; Mo Haynes; Dieter Simpson; Jean Brothers; Kinza Madrid; Reta Cisneros; Lance Joshi; Darci Champion; Ora Fink; Emmanuel Shin Other Interventions: Discharge Summary Assessment (RN) Last Done: 09/27/23 12:53 Supervising Physician Co-Signing Physician Notes The patient was not seen by me. The chart was reviewed. Case discussed with LINDA Rick. Agree with assessment and plan. The patient is medically stable for discharge todaySeptember 27 Coding Level of Care Code 87240 INP/OBS DISCH >30 MIN Diagnoses Acute on chronic hypoxic respiratory failure J96.21 Respiratory syncytial virus (RSV) B33.8 Mixed restrictive and obstructive lung disease J43.9; J98.4 Sarcoidosis D86.9 Atrial fibrillation I48.91 Chronic reflux esophagitis K21.0 Hyperlipidemia E78.5 Hypertension I10 Anemia D64.9
== END 2023-09-27 16:03 | disposition home or self-care (01) | DRG 193 ==
LOC: ED 19:19 → EDINP 23:57 → SUATTDRO 23:57 → 2W 09-24 12:37